=== PATIENT | male | born 1955 | race Caucasian/White ===

== ENCOUNTER → 2021-08-25 | Outpatient (CLI) | payer OTHER, SELFPAY ==
--- NOTE | 2021-08-25 07:45 | CT_ITS ---
STUDY: LOW DOSE CT LUNG CANCER SCREENING REASON FOR EXAM: Male, 65 years old. Z87.891. Patient smokes 1 pack per day for 40 years. Former smoker. COPD. History of prostate cancer. RADIATION DOSAGE (If Supplied By Facility): CTDIvol = ( 4.02 ) mGy, DLP = ( 138.43 ) mGycm TECHNIQUE: No contrast was administered. Low dose technique was utilized (average mAS-38 and kVp 120). 1.25 mm axial source images with a slice interval of 1.25-mm were reconstructed in lung windows. 2.5 mm axial source images with a slice interval of 2.5-mm were reconstructed in lung windows. 5.0 mm axial source images with a slice interval of 5.0-mm were reconstructed in soft tissue windows. COMPARISON: None. NODULES: There is an 8.4 mm nodular density in the anterior aspect of the right lower lobe as seen on axial image #139. This abuts the right major fissure. Mild scarring at the lung bases. Emphysema: Hyperinflation. Diffuse emphysematous changes with bullous formation worse in the upper lobes. Linear scarring in the lateral aspect of the left upper lobe. Mild increased markings in the anterior aspect of the right upper lobe. Endobronchial lesion: None Aorta: Atherosclerotic plaque formation of the aortic arch. CORONARY ARTERIES: Coronary artery calcification is seen. Heart: Unremarkable Pulmonary artery: Unremarkable Mediastinal nodes: Other chest and abdominal findings: CT/Low Dose CT Lung Screening IMPRESSION: Lung-RADS category 3 - Continue screening with LDCT in 6 months. IMPORTANT NOTES FOR USE: ACR Lung-RADS Version 1.1 Assessment Categories Release Date: 2018 Category: Coded 0-4 bases on nodule(s) with highest degree of suspicion. Negative screen is defined as categories 1 and 2; a positive screen is defined as categories 3 and 4. Category 3 and 4A nodules that are unchanged on interval CT should be coded as category 2, and individuals returned to screening in 12 months. Category 4X: Category 3 or 4 nodules with additional imaging findings that increase the suspicion of lung cancer, such as spiculation, GGN that doubles in size in 1 year, enlarged lymph notes, etc. Category Modifiers: S (significant finding unrelated to lung cancer) Electronically Signed: Shayne Goldsmiht MD at 8:37 EDT ,
== END | disposition home or self-care (01) ==
PROVIDERS: Referring Provider Internal Medicine Pulmonary Disease; Visit Provider Internal Medicine Pulmonary Disease
DX: Z12.2 Encounter for screening for malignant neoplasm of respiratory organs (principal); Z87.891 Personal history of nicotine dependence
CPT/HCPCS: 71271

== ENCOUNTER → 2022-04-07 | Outpatient (CLI) | payer OTHER, SELFPAY ==
--- NOTE | 2022-04-07 07:36 | CT_ITS ---
STUDY: CT CHEST WITHOUT CONTRAST REASON FOR EXAM: Male, 66 years old. PULM NODULE RADIATION DOSAGE (If Supplied By Facility): CTDIvol = ( 20.09 ) mGy, DLP = ( 879.65 ) mGycm TECHNIQUE: Transaxial imaging was performed without the administration of intravenous contrast material. Multiplanar coronal and sagittal images were reformatted. Individualized dose optimization techniques were used for this CT. COMPARISON: Comparison is made with prior study dated 08/25/2021. FINDINGS: CHEST Small benign-appearing bilateral axillary lymph nodes. Hyperinflation. Emphysematous changes with centrilobular emphysema worse in the upper lobes with decreased bronchovascular markings. Stable 8.5 mm well-defined nodule in the anterior aspect of the right lower lobe abutting the right major fissure. This is seen on axial image #80. Stable mild scarring in the lingular segment of the left upper lobe anteriorly. There is no demonstrated pleural abnormality. There are calcifications of the coronary arteries. Normal mediastinum. Normal hilar regions. Normal unenhanced pulmonary arteries. There is atherosclerotic calcification of the aortic arch with tortuosity and elongation of the aortic arch and descending thoracic aorta. There are multi-level degenerative changes of the thoracic spine. There is a 2.3 cm rounded nodule in the right retrocrural region suggestive of a small lymph node. CT/Chest without Contrast IMPRESSION: Stable examination. 2.3 cm rounded nodule in the right retrocrural region suggestive of a small lymph node. Electronically Signed: Shayne Goldsmith MD at 14:14 EST ,
== END | disposition home or self-care (01) ==
LOC: CT 07:34
PROVIDERS: Visit Provider Internal Medicine Pulmonary Disease
DX: R91.1 Solitary pulmonary nodule (principal)
CPT/HCPCS: 71250

== ENCOUNTER → 2022-10-22 | Outpatient (CLI) | payer OTHER, SELFPAY ==
--- NOTE | 2022-10-22 13:47 | CT_ITS ---
INDICATION: PULMONARY NODULE EXAMINATION: CT CHEST WITHOUT CONTRAST - CT Chest W/O Contrast Injection TECHNIQUE: Helically acquired images were obtained of the chest. A radiation dose optimization technique was used for this scan. IV Contrast dosage and agent: None. RADIATION DOSAGE (If Supplied By Facility): CTDIvol = ( 18.95 ) mGy, DLP = ( 776.70 ) mGycm COMPARISON: Prior study dated: 04/07/2022 FINDINGS: LUNGS, PLEURA AND LARGE AIRWAYS: The central airways are patent. There is severe centrilobular and paraseptal emphysema. No dense consolidation. Unchanged 0.8 cm fissural nodule on series 2 image 79, likely a fissural lymph node. No parenchymal nodules identified. No pleural effusion or thickening. No pneumothorax. THYROID: No thyroid lesions. HEART AND PERICARDIUM: Heart size is normal. No pericardial effusion. CORONARY ARTERIES: Coronary artery calcification is seen. VESSELS: Thoracic aorta is not dilated. MEDIASTINUM AND MICHEL: No hilar lymphadenopathy. Decreased prominence of a right-sided retrocrural lymph node. This currently measures 1.1 cm short axis on series 2 image 125. This previously measured 2 cm. Esophagus is unremarkable. No hiatal hernia. UPPER ABDOMEN: No acute pathology. BONES: No suspicious lytic or blastic abnormality. Mild degenerative changes in the spine. CT/Chest without Contrast IMPRESSION: Severe emphysema. Unchanged right lung fissural lymph node. No suspicious pulmonary nodule requiring follow-up. Decreased size of a right-sided retrocrural lymph node. Electronically Signed: Zbigniew Higgins MD at 22:45 EDT ,
== END | disposition home or self-care (01) ==
LOC: CT 13:45
PROVIDERS: Referring Provider Internal Medicine Pulmonary Disease; Visit Provider Internal Medicine Pulmonary Disease
DX: R91.1 Solitary pulmonary nodule (principal)
CPT/HCPCS: 71250

== ENCOUNTER → 2023-02-25 | Outpatient (CLI) | payer MEDICARE, SELFPAY ==
--- OUTSIDE RECORDS SUMMARY | 2023-02-25 07:26 | XMS RPT_ITS | CCD ---
Author Name Unknown Address [address] [facility] [address] [place] [address] Organization [facility] Care Team Providers Care Furnace Attendant Name Role Phone Rob Burns Unavailable Unavailable Unavailable Unavailable NewclarissalNarendra Unavailable Unavailable Newbill, Narendra Fernando Unavailable Unavailable Burns, Rob M Unavailable Unavailable Burns, Rob M Unavailable Unavailable Ivanauskas, Saulius Unavailable Unavailable Ivanauskas, Saulius Unavailable Unavailable Burns, Rob M Unavailable Unavailable Gilbert, Joel Unavailable Unavailable Gilbert, Joel Unavailable Unavailable Burns, Rob M Unavailable Rob Burns Primary Care Provider Unavaila ble Rob Burns Primary Care Provider [phone] Rob Burns Primary Care Provider [phone] GARDILCIC, STJEPAN Admitting Unavailable EVELYNILCIC, STJEPAN Attending Unavailable ORB BURNS Primary Care Unavailabl e GARDILCIC, STJEPAN Admitting Unavailable ROB BURNS Primary Care Unavailabl e Rob Burns Primary Care Provider Rob Burns MD Primary Care Provider [phone] Rob Burns MD Primary Care Provider STONE, FOZIA REBECA Referring Unavailable STONE, FOZIA REBECA Attending Unavailable STONE, FOZIA REBECA Primary Care Unavailable Stone [employer], Fozia Rebeca Primary Care Provide r STONE, FOZIA REBECA Primary Care Unavailable STONE, FOZIA REBECA Primary Care Unavailable HERRERA KESLSER Attending Unavail able Allergies Allergy Classification Reported Allergen(s) Allergy Type Date of Onset Reaction(s) Facility MITE EXTRACT (2 sources) MITE EXTRACT Drug Allergy [facility] (7 sources) english house dust mite extract / house dust mite extract; Translations: [ALLERG XT,D.FARINAE-D.PTER ONYS] Propensity to adverse reactions to drug [facility] Work Phone: (5 sources) diazePAM Propensity to adverse reactions to drug 08-28-19 10 [facility] Work Phone: (8 sources) NYQUIL; Translations: [Unknown] Propensity to adverse reactions to drug 09-29-19 17 Rash [facility] Work Phone: (2 sources) Dextromethorphan / Doxylamine; Translations: [NyQuil Cough] Drug Allergy [facility] Repository (2 sources) diazePAM; Translations: [Valium] Drug Allergy [facility] Repository (1 source) Silk adhesive tape; Translations: [Silk tape] Propensity to adverse reactions to drug (disorder) [facility] Repository (13 sources) MITE EXTRACT Drug Allergy [facility] Work Phone: (15 sources) PHENYLEPH-DOXYLAMIN E-DM-APAP Propensity to adverse reactions to drug Hives, Headache [facility] Work Phone: (15 sources) *SEASONAL Propensity to adverse reactions to substance [facility] Work Phone: (1 source) ALLERGIES NOT ON FILE; Translations: [ALLERGIES NOT ON FILE] Propensity to adverse reactions (disorder) [facility] 2 Repository Medications Current Medications Medication Drug Class(es) Dates Sig (Normalized) Sig (Original) acetaminophen 325 mg / oxyCODONE hydrochloride 5 mg oral tablet (1 source) Opioid Agonist Start: 09-15-2018 End: 09-22-2018 take 1 tablet by mouth every six hours as needed for pain oxyCODONE-acetamin ophen (PERCOCET) 5-325 mg per tablet Indications: Post-op pain Take 1 (one) tablet by mouth every 6 (six) hours as needed for pain . 20 tablet 0 09/15/2018 09/22/2018 Active 30 actuat aclidinium bromide 0.4 mg/actuat dry powder inhaler (20 sources) Start: 09-09-2017 End: 12-20-2020 take 1 [IU] by inhalation twice daily Aclidinium [place] (Tudorza Pressair) 400 MCG/ACT Aerosol Powder, breath activated inhalation powder Indications: Chronic obstructive pulmonary disease, unspecified COPD type Inhale 1 Units 2 times daily. 3 Each 1 12/20/2020 Active Completed/Discontinued Medications Medication Drug Class(es) Dates Sig (Normalized) Sig (Original) acetaminophen 325 mg / HYDROcodone bitartrate 5 mg oral tablet (1 source) Opioid Agonist Start: 09-14-2018 End: 09-15-2018 take 1-2 tablets by mouth every four hours as needed 1-2 tablet, Oral, Every 4 hours PRN, moderate to severe pain, Starting 09/14/18 at 1617 [] Initiate with 1 tablet oral every 4 hours prn moderate to severe pain. [] For unrelieved pain, may repeat one tablet oral dose within 60 minutes of initial dose. [] If pain is RELIEVED after repeat dose, change to two tablets of 5/325 mg oral every 4 hours prn moderate to severe pain. [] If pain is UNrelieved after repeat dose, or patient requires dose reduction, call physician. bisacodyl 10 mg rectal suppository (1 source) Stimulant Laxative Start: 09-15-2018 End: 09-15-2018 10 mg, Rectal, Daily, First dose on Wed09/15/18 at 0900 [] until flatus or BM, then discontinue. busPIRone hydrochloride 15 mg oral tablet (4 sources) Start: 03-01-2018 End: 08-23-2018 take 1 tablet by mouth three times daily busPIRone 15 MG Tab tablet Indications: Anxiety disorder, unspecified type Take 1 tablet by mouth 3 times daily. 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 Disorders of lipid metabolism (20 sources) Pure hypercholesterolemia; Translations: [Mixed hyperlipidemia] Resolved: 09-15-2016 09-15-2016 Chronic Esophageal disorders (16 sources) Gastro-esophageal reflux disease without esophagitis; Translations: [Gastroesophageal reflux disease without esophagitis] 08-28-2016 Chronic Mood disorders (20 sources) Recurrent major depression in full remission; Translations: [Major depressive disorder, recurrent, in full remission] 08-28-2016 Chronic Nonmalignant breast conditions (20 sources) Gynecomastia; Translations: [Breast lump] Onset: 08-27-2009 Resolved: 09-15-2016 03-26-2010 Episodic Nonspecific chest pain (2 sources) Chest pain; Translations: [Chest discomfort] Episodic Nutritional deficiencies (16 sources) Vitamin D deficiency; Translations: [Vitamin D deficiency, unspecified] 08-28-2016 Chronic Other aftercare (1 source) Follow-up status; Translations: [Encounter to discuss test results] Episodic Other diseases of bladder and urethra (1 source) Bladder neck obstruction; Translations: [Bladder neck obstruction] Chronic Other diseases of veins and lymphatics (15 sources) Peripheral venous insufficiency; Translations: [Venous insufficiency (chronic) (peripheral)] 08-28-2016 Episodic Other male genital disorders (2 sources) Impotence of organic origin; Translations: [Erectile dysfunction, unspecified erectile dysfunction type] Chronic Other nervous system disorders (1 source) Postoperative pain ; Translations: [Post-op pain] Episodic Other non-traumatic joint disorders (2 sources) Pain in left hip; Translations: [Pain in left hip] Onset: 12-11-2021 Episodic Other nutritional; endocrine; and metabolic disorders (13 sources) Morbid obesity; Translations: [Morbid (severe) obesity due to excess calories] Onset: 08-23-2018 08-23-2018 Chronic Other nutritional; endocrine; and metabolic disorders (1 source) Overweight; Translations: [Overweight] Chronic Other nutritional; endocrine; and metabolic disorders (2 sources) Body mass index 40+ - severely obese; Translations: [Morbid (severe) obesity due to excess calories] Onset: 08-23-2018 08-23-2018 Chronic Other nutritional; endocrine; and metabolic disorders (1 source) Overweight; Translations: [Overweight] Episodic Other screening for suspected conditions (not mental disorders or infectious disease) (5 sources) Patient encounter status; Translations: [Encounter for screening for malignant neoplasm of prostate] Onset: 12-22-2022 Episodic Residual codes; unclassified (20 sources) Obstructive sleep apnea syndrome; Translations: [Obstructive sleep apnea (adult) (pediatric)] Onset: 11-16-2016 11-16-2016 Chronic Residual codes; unclassified (20 sources) Localized edema; Translations: [Localized edema] 08-28-2016 Episodic Residual codes; unclassified (2 sources) Needs influenza immunization; Translations: [Encounter for immunization] Episodic Spondylosis; intervertebral disc disorders; other back problems (15 sources) Low back pain; Translations: [Low back pain] 08-28-2016 Episodic Unclassified (2 sources) Preprocedural examination done; Translations: [Preoperative examination] Unclassified (1 source) Patient encounter status; Translations: [Special screening for malignant neoplasm of prostate] Past or Other Problems Problem Classification Problem Date Documented Da te Episodic/Chronic Anxiety disorders (18 sources) Anxiety disorder; Translations: [Anxiety disorder, unspecified] Resolved: 09-15-2016 09-15-2016 Chronic Diabetes mellitus without complication (8 sources) Impaired fasting glycaemia; Translations: [Impaired fasting glucose] Onset: 01-01-2020 01-01-2020 Episodic Essential hypertension (15 sources) Essential hypertension; Translations: [Essential (primary) hypertension] Resolved: 09-15-2016 09-15-2016 Chronic Other circulatory disease (15 sources) Elevated blood-pressure reading without diagnosis of hypertension; Translations: [Elevated blood-pressure reading, without diagnosis of hypertension] Resolved: 09-15-2016 09-15-2016 Episodic Other connective tissue disease (6 sources) Ganglion, right hand; Translations: [Ganglion cyst of right hand] Resolved: 09-15-2016 09-15-2016 Episodic Other connective tissue disease (15 sources) Pain in right arm; Translations: [Pain in right arm] Resolved: 09-15-2016 09-15-2016 Episodic Other connective tissue disease (9 sources) Ganglion cyst of right hand; Translations: [Ganglion, right hand] Resolved: 09-15-2016 09-15-2016 Residual codes; unclassified (15 sources) Edema, unspecified; Translations: [Swelling - edema - symptom] Resolved: 09-15-2016 09-15-2016 Episodic Results Test Name Value Interpretation Reference Range Facil ity Vital Signs Date Time Vital Sign Value Performing Clinician Jayden mccallum 12-20-2020 08:33-0400 Diastolic blood pressure 78 mm[Hg] Rob Burns MD Work Phone: [facility] 12-20-2020 08:33-0400 Systolic blood pressure 142 mm[Hg] Rob Burns MD Work Phone: [facility] 12-20-2020 08:110400 Body height 177.8 cm Rob Burns MD Work Phone: [facility] 12-20-2020 08:11-0400 Body mass index (BMI) [Ratio] 41.63 kg/m2 Rob Burns MD Work Phone: [facility] 12-20-2020 08:11-0400 Body weight 131.59 kg Rob Burns MD Work Phone: [facility] 12-20-2020 08:[id number] Heart rate 68 /min Rob Burns MD Work Phone: [facility] 12-20-2020 08:11-0400 SaO2% (BldA) [Mass fraction] 91 % Rob Burns MD Work Phone: [facility] 07-05-2020 09:07-0400 Body height 177.8 cm Heather Rona [employer] Work Phone: [facility] 07-05-2020 09:07-0400 Body mass index (BMI) [Ratio] 44.54 kg/m2 Heather Rona [employer] Work Phone: [facility] 07-05-2020 09:07-0400 Body weight 140.8 kg Heather Rona [employer] Work Phone: [facility] 07-05-2020 09:07-0400 Diastolic blood pressure 80 mm[Hg] Heather Rona [employer] Work Phone: [facility] 07-05-2020 09:07-0400 Heart rate 84 /min Heather Rona [employer] Work Phone: [facility] 07-05-2020 09:07-0400 Respiratory rate 16 /min Heather Rona [employer] Work Phone: [facility] 07-05-2020 09:07-0400 SaO2% (BldA) [Mass fraction] 92 % Heather Rona [employer] Work Phone: [facility] 07-05-2020 09:07-0400 Systolic blood pressure 130 mm[Hg] Heather Rona [employer] Work Phone: [facility] 06-25-2020 08:05-0400 Body mass index (BMI) [Ratio] 44.29 kg/m2 Rob Burns MD Work Phone: [facility] 06-25-2020 08:05-0400 Body weight 140.03 kg Rob Burns MD Work Phone: [facility] 06-25-2020 08:05-0400 Diastolic blood pressure 82 mm[Hg] Rob Burns MD Work Phone: [facility] 06-25-2020 08:05-0400 Heart rate 79 /min Rob Burns MD Work Phone: [facility] 06-25-2020 08:05-0400 SaO2% (BldA) [Mass fraction] 92 % Rob Burns MD Work Phone: [facility] 06-25-2020 08:05-0400 Systolic blood pressure 141 mm[Hg] Rob Burns MD Work Phone: [facility] 01-01-2020 09:13-0500 BMI (Body Mass Index) 43.16 kg/m2 Rob Burns [facility] 01-01-2020 09:13-0500 Body weight 136.44 kg [facility] 01-01-2020 09:13-0500 BP Diastolic 77 mm[Hg] [facility] 01-01-2020 09:13-0500 BP Systolic 134 mm[Hg] [facility] 01-01-2020 09:13-0500 Height 177.8 cm [facility] 01-01-2020 09:13-0500 Pulse (Heart Rate) 72 /min [facility] 01-01-2020 09:13-0500 Pulse Oximetry 90 % [facility] 12-22-2019 08:54-0500 BMI (Body Mass Index) 43.28 kg/m2 [facility] 12-22-2019 08:54-0500 Body weight 136.81 kg [facility] 12-22-2019 08:54-0500 BP Diastolic 78 mm[Hg] [facility] 12-22-2019 08:54-0500 BP Systolic 114 mm[Hg] [facility] 12-22-2019 08:54-0500 Height 177.8 cm [facility] 12-22-2019 08:54-0500 Pulse (Heart Rate) 78 /min [facility] 12-22-2019 08:54-0500 Pulse Oximetry 95 % [facility] 12-22-2019 08:54-0500 Respiratory Rate 22 /min [facility] 09-07-2019 08:28-0400 BMI (Body Mass Index) 41.87 kg/m2 [facility] 09-07-2019 08:28-0400 Body weight 132.36 kg [facility] 09-07-2019 08:28-0400 BP Diastolic 70 mm[Hg] [facility] 09-07-2019 08:28-0400 BP Systolic 140 mm[Hg] [facility] 09-07-2019 08:28-0400 Height 177.8 cm [facility] 09-07-2019 08:28-0400 Pulse (Heart Rate) 78 /min [employer] 09-07-2019 08:28-0400 Pulse Oximetry 93 % [facility] [employer] Encounters Encounter Date Encounter Type Care Provider Facility Start: 02-24-2023 End: 02-24-2023 Patient encounter status [facility] Work Phone: Start: 02-24-2023 End: 02-24-2023 Subsequent hospital visit by physician Kailash Campos Nonv1 Ecg Resource [facility] Procedures Date Procedure Procedure Detail Performing Clinician Start: 02-24-2023 Ecg routine ecg w/le ast 12 lds trcg only w/o i&r Fozia Knapp [employer] Work Phone: Start: 12-22-2022 VASC US ABDOMINAL AO RTA ANEURYSM AAA SCREENING FOZIA KNAPP Start: 12-22-2022 Us abdominal aorta r eal time screen study aaa Fozia Knapp [employer] Work Phone: Start: 12-02-2020 Lipid 1996 panel - S ki or Plasma Rob Burns MD Work Phone: Start: 06-13-2020 Lipid 1996 panel - S ki or Plasma Rob Burns MD Work Phone: Start: 12-22-2019 Lipid 1996 panel - S ki or Plasma Rob Burns Start: 09-30-2019 SLEEP STUDY (SCANNED) H istorical Provider Start: 09-22-2019 SLEEP STUDY PSG Histori cydney Provider Start: 07-12-2019 Lipid 1996 panel - S ki or Plasma Rob Burns Start: 01-23-2019 Lipid 1996 panel - S ki or Plasma Rob Burns Start: 09-15-2018 Complete blood count (hemogram) panel - Blood by Automated count Wilber Burr Work Phone: Start: 09-15-2018 Basic metabolic 2000 panel - Serum or Plasma Wilber Burr Work Phone: Start: 09-14-2018 Procedure on tissue specimen Wilber Burr Work Phone: Start: 09-14-2018 End: 09-14-2018 INSERTION PENILE PROSTHESIS Wilber Burr Work Phone: Start: 09-09-2018 12 lead ECG Migdalia godinez Work Phone: Start: 09-09-2018 Basic metabolic 2000 panel - Serum or Plasma Migdalia Ghotra Work Phone: Start: 09-09-2018 Complete blood count (hemogram) panel - Blood by Automated count Migdalia Ghotra Work Phone: Start: 08-08-2018 Lipid 1996 panel - S ki or Plasma Rob Burns Start: 02-16-2018 Lipid 1996 panel - S ki or Plasma Rob Burns Start: 09-28-2017 Colonoscopy Provider Marvel pope Start: 08-24-2017 Lipid 1996 panel - S ki or Plasma Provider Kevin Plan of Treatment Date Care Activity Detail Author Start: 12-02-2025 Fasting lipid profile LIPID SCREENING [employer] Start: 06-13-2025 [facility]asting [facility] Start: 12-21-2024 Fasting lipid profile [facility]ING [facility] Start: 07-11-2024 Fasting lipid profile LIPID SCREENING [employer] Start: 01-24-2024 Fasting lipid profile LIPID SCREENING [employer] Start: 08-09-2023 Fasting lipid profile LIPID SCREENING [employer] [facility] Start: 04-27-2023 End: 04-27-2023 Patient encounter procedure 04/27/2023 8:00 AM EDT Appointment [facility] [address] [place] [id number] [phone] Santiago Vazquez, DO [address] [facility] [place] [address] [facility] Start: 03-26-2023 End: 03-26-2023 ambulatory 03/26/2023 11:30 AM EST Evaluation [facility] [address] [place] [id number] Pita Puckett, PT [address] [place] [address] Gaye [facility]gesont Start: 02-16-2023 Fasting lipid profile LIPID SCREENING [facility] Work Phone: Start: 09-28-2022 Colonoscopy COLONOSCOPY [facility] Start: 08-24-2022 Fasting lipid profile LIPID SCREENING [facility] Work Phone: Start: 12-02-2021 Potassium [Moles/volume] in Serum or Plasma POTASSIUM [facility] Start: 12-02-2021 Prostate specific antigen measurement PROSTATE CANCER SCREENING DISCUSSION [facility] Start: 07-03-2021 End: 07-03-2021 Patient encounter procedure [facility] Pulmonary Disease [facility] Start: 07-01-2021 DTaP/Tdap/Td Vaccines (1 - Tdap) DTaP/Tdap/Td Vaccines (1 - Tdap) [facility] Start: 06-25-2021 Prostate specific antigen measurement PROSTATE CANCER SCREENING DISCUSSION [facility] Start: 06-13-2021 End: 06-13-2021 Patient encounter procedure 06/13/2021 Office Visit Family Medicine Rob Burns MD [address] [place] [address] [facility] Start: 05-19-2021 End: 09-16-2021 Hepatic function 2000 panel - Serum or Plasma HEPATIC FUNCTION PANEL Lab Routine Mixed hyperlipidemia Expected: 05/19/2021 (Approximate), Expires: 09/16/2021 [facility] Work Phone: Immunizations Immunization Date Immunization Notes Care Provider Fa [facility] 12-20-2020 influenza, injectabl e, quadrivalent, preservative free Rob Burns MD Work Phone: [facility] 12-20-2020 influenza quad vacci ne 0.5 ML Suspension Prefilled Syringe Rob Burns MD Work Phone: [facility] 01-01-2020 influenza, injectabl e, quadrivalent, preservative free Rob Burns [facility] 01-01-2020 influenza quad vacci ne 0.5 ML Suspension Prefilled Syringe Rob [facility] 12-14-2018 Seasonal, quadrivale nt, recombinant, injectable influenza vaccine, preservative free Rob Burns MD Work Phone: [facility] 12-14-2018 influenza virus vacc ine, unspecified formulation Arnold Seifu [facility] 11-17-2017 influenza virus vacc ine, whole virus [facility] Work Phone: 11-17-2017 influenza virus vacc ine, unspecified formulation [facility] 03-16-2017 pneumococcal polysaccharide vaccine, 23 valent; Translations: [PNEUMOCOCCAL POLYSAC 23-VALENT VACCINE] Provider [facility] Work Phone: 11-11-2016 influenza, injectabl e, quadrivalent, preservative free Rob Burns MD Work Phone: [facility] 11-11-2016 influenza virus vacc ine, unspecified formulation Provider [facility] Work Phone: 11-14-2013 influenza, injectabl e, quadrivalent, contains preservative Provider [facility] Work Phone: 11-14-2013 influenza, seasonal, injectable Rob Burns MD Work Phone: [facility] 10-24-2012 influenza, injectabl e, quadrivalent, contains preservative Provider [facility] Work Phone: 10-24-2012 influenza, seasonal, injectable Rob Burns MD Work Phone: [facility] 01-18-2012 influenza, injectabl e, quadrivalent, contains preservative Provider [facility] Work Phone: 12-30-1999 TD(adult) unspecifie d formulation Rob Burns [facility] Work Phone: Payers Date Payer Category Payer Medicare [facility] MEDICARE [employer] MEDICARE [id number] 2022-Present [address] [place] [address] [id number] 2022 Medicare [id number] 2021 Unknown [id number] 2017 Unknown 2016 Unknown [id number] 2016 Unknown [id number] [id number] 2014 Unknown [id number] [id number] 2014 Unknown [id number]. [id number] 2014 Unknown [id number] [id number]. [id number] 1957 Unknown [id number] [id number] 1957 Unknown [id number] [id number] 1957 Unknown [id number] [id number] 1957 Unknown [id number] [id number] 1957 Unknown [id number] [id number] 1957 Unknown [id number] [id number] 1957 Unknown [id number] [id number] 1957 Unknown [id number] [id number] 1957 Unknown [id number] [id number] 1957 Unknown [id number] [id number] 1957 Unknown [id number] Social History Date Type Detail Facility Start: 10-26-2016 End: 07-05-2020 Tobacco smoking status MTIS Former smoker [facility] Work Phone: Start: 10-26-2016 End: 09-09-2018 Cigarettes smoked current (pack per day) - Reported [facility] Work Phone: Start: 1955 [facility]igned At [facility] Work [facility]: End: 09-27-2006 History of tobacco use Current smoker [facility] Work Phone: End: 09-27-2006 History of tobacco use Cigarette Smoker [facility] Work Phone: Start: 07-20-2019 End: 07-05-2020 Tobacco use and exposure Never used [employer] Start: 07-20-2019 End: 12-20-2020 Alcohol intake Current non-drinker of alcohol (finding) [employer] Start: 12-12-2022 End: 02-24-2023 Exposure to SARS-CoV-2 (event) Not sure [employer] Start: 09-22-2018 Tobacco use and exposure Former user [facility] Tobacco smoking stat [facility] Tobacco smoking consumption unknown [facility] Work Phone: Gender identity Not on file [facility] Work Phone: Medical Equipment Procedure Code Equipment Code Equipment Origin al Text Equipment Identifier Dates Kit Accessory 70 0 Ultrex Penile Prosthesis - [id number] FDA Start: 09-14-2018 History of Present illness Narrative 12-20-2020 Rob Burns MD - 12/20/2020 8:15 AM EDTErghazal Conroy - 12/20/2020 8:15 AM EDT Note Date & Type Note Facility 12-20-2020 History of Presen t illness Narrative Chief Complaint Patient presents with Results Hyperlipidemia Depression Chronic Obstructive Pulmonary Disease Edema Obstructive Sleep Apnea Wears Cpap and benefiting from HPI: Regarding Hyperlipidemia: Rainer comes in today to follow up on chronic hyperlipidemia. This condition has been under good control. Pt reports that he has been compliant with his medications. Pt denies side effects from medication including myalgias, weakness or joint pain. Alleviating factors include: simvastatin Exacerbating factors include: poor diet, lack of exercise Other significant medical conditions include: see problem list Lab Results Component Value Date CHOLESTEROL 160 12/02/2020 TRIG 70 12/02/2020 HDL 44 12/02/2020 LDLCALC 102 (H) 12/02/2020 Lab Results Component Value Date ALT 14 (L) 12/02/2020 AST 16 12/02/2020 ALKPHOS 71 12/02/2020 BILITOTAL 0.8 12/02/2020 BILIDIRECT 0.1 06/13/2020 His hyperlipidemia severity is mild due to the above factors. Regarding Anxiety/Depression: Rainer presents with the complaint of anxiety/depression which is currently under improved control. He reports the following triggers: stress, dealing with a teen with mental issues Other symptoms include: Current treatment includes: fluoxetine, Buspar Significant medical conditions: see problem list In Regards to COPD: Rainer Soriano presents in follow up for COPD, which is chronic and stable. Control is at baseline. No increase in rescue use. No increase in cough, sputum, SOB. Compliance with medication is good. No medication side effects. he denies fever, chills, headache, sore throat, chest pain, palpitations, nausea, vomiting, diarrhea, dysuria, frequency, hematuria. Sleep apnea: chronic and stable on CPAP, finds it beneficial In regards to edema: Rainer presents with the complaint of edema: Location: mid-tibia Onset: years ago Frequency: daily Significant PMH: morbid obesity Significant medications: furosemide Triggers/exacerbating factors: weight, sedentary lifestyle Alleviating factors: diuretics and support stockings Other: Leg Swelling , denies chest pain, SOB, orthopnea, has occasional palpitations he associates it with dehydration. In Regards to GERD: Rainer Soriano is a 65 y.o. male who presents in follow up for GERD/gastritis. Symptoms are under good control. There are no side effects noted from the medication. he denies water brash, bitter or metallic taste, dysphagia, nausea, vomiting, hematemesis, melena, or black/tarry stools. He takes the medication on a daily basis and has recurrence of symptoms when reducing frequency of medication usage. Regarding elevated fasting glucose: Rainer presents in follow up of lab results that reveal elevated fasting glucose of Lab Results Component Value Date GLUCOSE 107 (H) 12/02/2020 Exacerbating factors include: poor diet, sedentary lifestyle, no regular exercise, obesity Onset of problem: 2018 Condition is: not changed Currently treated with: diet Other significant medical conditions include: see problem list ROS: Nurse Note: Review of Systems Constitutional: Negative for fatigue and fever. HENT: Negative for congestion, ear pain and sinus pain. Eyes: Negative for pain and redness. Respiratory: Negative for cough and shortness of breath. Cardiovascular: Negative for chest pain and palpitations. Gastrointestinal: Negative for abdominal pain, constipation, diarrhea, nausea and vomiting. Genitourinary: Negative for difficulty urinating and dysuria. Musculoskeletal: Negative for arthralgias and myalgias. Skin: Negative for rash and wound. Neurological: Negative for dizziness and headaches. All other systems reviewed and are negative. Physical Exam: BP 142/78 Pulse 68 Ht 1.778 m (5' 10 ) Wt 131.6 kg (290 lb 1.6 oz) SpO2 91% BMI 41.63 kg/m Smoking Status Former Smoker Body mass index is 41.63 kg/m . Physical Exam Constitutional: General: He is not in acute distress. Appearance: He is morbidly obese. He is not diaphoretic. HENT: Head: Normocephalic and atraumatic. Eyes: Conjunctiva/sclera: Conjunctivae normal. Pupils: Pupils are equal, round, and reactive to light. Cardiovascular: Rate and Rhythm: Normal rate. Heart sounds: Normal heart sounds. Pulmonary: Effort: Pulmonary effort is normal. No respiratory distress. Breath sounds: Normal breath sounds. Abdominal: Palpations: Abdomen is soft. Musculoskeletal: Cervical back: Normal range of motion and neck supple. Right lower leg: Edema present. Left lower leg: Edema present. Skin: General: Skin is warm and dry. Neurological: Mental Status: He is alert and oriented to person, place, and time. Cranial Nerves: No cranial nerve deficit. Assessment/Plan: 1. Chronic obstructive pulmonary disease, unspecified COPD type Chronic stable, continue same therapy - Aclidinium [place] (Tudorza Pressair) 400 MCG/ACT Aerosol Powder, breath activated inhalation powder; Inhale 1 Units 2 times daily. Dispense: 3 Each; Refill: 1 - budesonide-formoterol (Symbicort) 160-4.5 mcg/puff Aerosol inhaler; Inhale 2 puffs 2 times daily. Dispense: 30.6 g; Refill: 1 - montelukast (Singulair) 10 MG tablet; Take 1 tablet by mouth daily. Dispense: 90 tablet; Refill: 1 2. Major depressive disorder, recurrent, in full remission Chronic stable, continue same therapy - FLUoxetine 40 MG capsule; Take 1 capsule by mouth daily. Dispense: 90 capsule; Refill: 1 3. Localized edema Chronic stable, continue same therapy - furOSEmide 20 MG tablet; Take 1 tablet by mouth 2 times daily. Dispense: 180 tablet; Refill: 1 - potassium chloride SA (Klor-Con M10) 10 MEQ Tab CR; Take 1 tablet by mouth 2 times daily. Dispense: 180 tablet; Refill: 1 4. Mixed hyperlipidemia Chronic stable, continue same therapy - rosuvastatin 10 MG tablet; Take 1 tablet by mouth daily. Dispense: 90 tablet; Refill: 1 - HEPATIC FUNCTION PANEL; Future - LIPID PANEL W CALCULATED LDL; Future Orders and follow up as documented in patient record; We reviewed diet, exercise and weight control; Repeat labs were ordered and patient was advised to get prior to next appointment; Patient was advised to call with any questions or concerns. If symptoms worsen patient was advised to follow up in our office or the Emergency Dept. Benefits, Risks, Contraindications, and Complications of recommended treatments were explained the patient understands and agrees to proceed with plan. Rob Burns MD 12/20/2020 Nurse Note: Review of Systems Constitutional: Negative for fatigue and fever. HENT: Negative for congestion, ear pain and sinus pain. Eyes: Negative for pain and redness. Respiratory: Negative for cough and shortness of breath. Cardiovascular: Negative for chest pain and palpitations. Gastrointestinal: Negative for abdominal pain, constipation, diarrhea, nausea and vomiting. Genitourinary: Negative for difficulty urinating and dysuria. Musculoskeletal: Negative for arthralgias and myalgias. Skin: Negative for rash and wound. Neurological: Negative for dizziness and headaches. All other systems reviewed and are negative. documented in this encounter [facility] History of Present illness Narrative 07-05-2020 Heather Rea, MARKUS-BELT LACER - 07/05/2020 9:00 AM EDTBarkEmily bone LPN - 07/05/2020 9:00 AM EDT Note Date & Type Note Facility 07-05-2020 History of Present illness Narrative HPI: SUBJECTIVE: Rainer Soriano is a 64 y.o. male being seen today for sleep follow up. Most recent polysomnography showed: severe obstructive sleep apnea. Currently on home CPAP at 14 cmH2O. Patient stated that he is benefiting from the therapy. His compliance is excellent. Average AHI from the compliance report was 0.8. He denied any daytime fatigue, excessive daytime sleepiness, or weight changes. Current sleep problems/side effects include: None. Denies snoring during therapy. History and Allergies Allergies Allergen Reactions Nyquil Severe Cold-Flu [[id number]-Apap] Hives and Headache Dust Mite Extract Nasal Drainage Seasonal [*Seasonal] Pollen: nasal Drainage Past Medical History: Diagnosis Date Anxiety disorder, unspecified Asthma with COPD with exacerbation Depression Edema, unspecified Elevated blood pressure reading without diagnosis of hypertension Essential (primary) hypertension Fluid retention Ganglion, right hand Gastroesophageal reflux disease without esophagitis GERD (gastroesophageal reflux disease) Gynecomastia, male H/O colonoscopy 09/07/2014 Dr. Ibarra; + polyps Hypercholesteremia Localized edema Low back pain Major depressive disorder, recurrent, in full remission Mixed hyperlipidemia Pain in right arm Prostate cancer Pure hypercholesterolemia Radiation prostate Venous insufficiency (chronic) (peripheral) Vitamin D deficiency, unspecified Past Surgical History: Procedure Laterality Date HAND SURGERY 02/[address] Patrick [place] INSERT,INFLATABLE PENILE PROSTHESIS PROSTATECTOMY HEART CATHETERIZATION 2006 ACL RECONSTRUCTION 1993 left knee Social History Socioeconomic History Marital status: Spouse name: Not on file Number of children: Not on file Years of education: Not on file Highest education level: Not on file Occupational History Not on file Tobacco Use Smoking status: Former Smoker Years: 30.00 Types: Cigarettes Quit date: 09/27/2006 Years since quittin.7 Smokeless tobacco: Never Used Substance and Sexual Activity Alcohol use: No Drug use: No Sexual activity: Not on file Other Topics Concern Not on file Social History Narrative Not on file Social Determinants of Health Financial Resource Strain: Difficulty of Paying Living Expenses: Food Insecurity: Worried About Running Out of Food in the Last Year: Ran Out of Food in the Last Year: Transportation Needs: Lack of Transportation (Medical): Lack of Transportation (Non-Medical): Physical Activity: Days of Exercise per Week: Minutes of Exercise per Session: Stress: Feeling of Stress : Social Connections: Frequency of Communication with Friends and Family: Frequency of Social Gatherings with Friends and Family: Attends [employer] Services: Active Member of Clubs or Organizations: Attends Club or Organization Meetings: Marital Status: Intimate Partner Violence: Fear of Current or Ex-Partner: Emotionally Abused: Physically Abused: Sexually Abused: Family History Problem Relation Age of Onset Cancer- Other Father type unknown age 55 dec'd 57 Cancer- Other Sister cancer unknown; age 54 dec'd Cancer- Other Brother bladder cancer age 60's at dx; Aneurysm Mother Brain Vitals: 07/05/20 0907 BP: 130/80 Pulse: 84 Resp: 16 SpO2: 92% Weight: (!) 140.8 kg (310 lb 6.4 oz) Height: 1.778 m (5' 10 ) Physical Examination Physical Exam Vitals and nursing note reviewed. Constitutional: General: He is not in acute distress. Appearance: He is well-developed. Comments: Negative for chills, fever HENT: Head: Normocephalic and atraumatic. Right Ear: External ear normal. Left Ear: External ear normal. Nose: Nose normal. Eyes: General: Right eye: No discharge. Left eye: No discharge. Conjunctiva/sclera: Conjunctivae normal. Pupils: Pupils are equal, round, and reactive to light. Neck: Vascular: No JVD. Cardiovascular: Rate and Rhythm: Normal rate and regular rhythm. Heart sounds: Normal heart sounds. No murmur heard. No friction rub. No gallop. Comments: Negative for chest pain Pulmonary: Effort: Pulmonary effort is normal. No respiratory distress. Breath sounds: Normal breath sounds. No wheezing. Abdominal: General: Bowel sounds are normal. Palpations: Abdomen is soft. Musculoskeletal: General: No deformity. Normal range of motion. Cervical back: Normal range of motion and neck supple. Skin: General: Skin is warm and dry. Neurological: Mental Status: He is alert and oriented to person, place, and time. Psychiatric: Judgment: Judgment normal. Comments: Negative for sleep disturbance Coldiron Score - 5 CPAP/BIPAP/APAP Pressure -14 cm H2O Most Recent Sleep Study -PSG 09/22/19 Oxygen Use -4 L at night Patient is benefiting from PAP therapy MARTÍN Griffin Referred hi-[id number] Symptoms include : Snoring/snorting -No Insomnia-No Waking with gasping/shortness of breath -No Difficulty concentrate- No Waking with headache-No Significant weight change-No Daytime Sleepiness-No Restless legs -No Upcoming surgeries?-No 6 month follow up-Doing good today pressure with machine feels comfortable to him. CURRENT MEDICATIONS: Current Outpatient Medications Medication Sig Dispense Refill Aclidinium [place] (Tudorza Pressair) 400 MCG/ACT Aerosol Powder, breath activated inhalation powder Inhale 1 Units 2 times daily. 3 Each 1 albuterol (2.5 MG/3ML) 0.083% inhalation solution Take 3 mL by nebulization every 4 hours as needed. Every 4-6 hours 100 vial 3 budesonide-formoterol (Symbicort) 160-4.5 mcg/puff Aerosol inhaler Inhale 2 puffs 2 times daily. 3 Inhaler 1 Cholecalciferol (VITAMIN D3) 5000 units Tab take 5,000 Units by mouth daily.. FLUoxetine 40 MG capsule Take 1 capsule by mouth daily. 90 capsule 1 furOSEmide 20 MG tablet Take 1 tablet by mouth 2 times daily. 180 tablet 1 Misc. Devices Misc by Unknown route. CPAP pressure 14 cm H2O set up 10/06/2019 MARTÍN Magallon Elias montelukast (Singulair) 10 MG tablet Take 1 tablet by mouth daily. 90 tablet 1 omeprazole [address] take 20 mg by mouth daily.. potassium chloride SA (Klor-Con M10) 10 MEQ Tab CR Take 1 tablet by mouth 2 times daily. 180 tablet 1 rosuvastatin 10 MG tablet Take 1 tablet by mouth daily. 90 tablet 1 No current facility-administered medications for this visit. Lungs: Clear to auscultation bilaterally. Heart: Regular in rate and rhythm. Abd: Soft and non-distended. Skin: No obvious rashes or cyanosis. Neuro: Grossly non-focal examination. MS: No joint erythema/edema. ROS Reviewed. Sleep study and compliance report form was reviewed together with the patient during this visit. The sleep study result was reviewed and discussed with the patient during this visit ASSESSMENT & PLAN: * Severe EDMAR * Obesity * Reviewed Test Results from Polysomnography * Reviewed CPAP Compliance Form * Patient was advised to continue with positive pressure therapy at home. * Patient was advised to adhere to a regular sleep hygiene habits. * Reinforced: adverse consequences of EDMAR, compliance, wt loss, side sleeping if feasible, sleep hygiene (and avoid/minimize alcohol, sedative/respiratory depressant meds, nicotine/smoking cessation: quit), not driving/operating machinery while sleepy. * Patient will follow up in 1 year * New Supplies Ordered Spent 20 minutes with patient face to face and more than 50% of this time was spent in counseling and coordination of care. GUNJAN Roblero Coldiron Score - 5 CPAP/BIPAP/APAP Pressure -14 cm H2O Most Recent Sleep Study -PSG 09/22/19 Oxygen Use -4 L at night Patient is benefiting from PAP therapy MARTÍN Griffin Referred dw-[id number] Symptoms include : Snoring/snorting -No Insomnia-No Waking with gasping/shortness of breath -No Difficulty concentrate- No Waking with headache-No Significant weight change-No Daytime Sleepiness-No Restless legs -No Upcoming surgeries?-No 6 month follow up-Doing good today pressure with machine feels comfortable to him. documented in this encounter [facility] History of Present illness Narrative 06-25-2020 Rob Burns MD - 06/25/2020 8:00 AM Ann Dick - 06/25/2020 8:00 AM EDT Note Date & Type Note Facility 06-25-2020 History of Presen t illness Narrative Chief Complaint Patient presents with Results Chronic Obstructive Pulmonary Disease Esophageal Reflux Hyperlipidemia Vitamin D Deficiency Obstructive Sleep Apnea Depression Edema HPI: Regarding Hyperlipidemia: Rainer comes in today to follow up on chronic hyperlipidemia. This condition has been under good control. Pt reports that he has been compliant with his medications. Pt denies side effects from medication including myalgias, weakness or joint pain. Alleviating factors include: simvastatin Exacerbating factors include: poor diet, lack of exercise Other significant medical conditions include: see problem list Lab Results Component Value Date CHOLESTEROL 216 (H) 06/13/2020 TRIG 105 06/13/2020 HDL 54 06/13/2020 LDLCALC 141 (H) 06/13/2020 Lab Results Component Value Date ALT 17 06/13/2020 AST 8 (L) 06/13/2020 ALKPHOS 74 06/13/2020 BILITOTAL 1.2 06/13/2020 BILIDIRECT 0.1 06/13/2020 His hyperlipidemia severity is mild due to the above factors. Regarding Anxiety/Depression: Rainer presents with the complaint of anxiety/depression which is currently under improved control. He reports the following triggers: stress, dealing with a teen with mental issues Other symptoms include: Current treatment includes: fluoxetine, Buspar Significant medical conditions: see problem list In Regards to COPD: Rainer Soriano presents in follow up for COPD, which is chronic and stable. Control is at baseline. No increase in rescue use. No increase in cough, sputum, SOB. Compliance with medication is good. No medication side effects. he denies fever, chills, headache, sore throat, chest pain, palpitations, nausea, vomiting, diarrhea, dysuria, frequency, hematuria. Sleep apnea: chronic and stable on CPAP, finds it beneficial In regards to edema: Rainer presents with the complaint of edema: Location: mid-tibia Onset: years ago Frequency: daily Significant PMH: morbid obesity Significant medications: furosemide Triggers/exacerbating factors: weight, sedentary lifestyle Alleviating factors: diuretics and support stockings Other: Leg Swelling , denies chest pain, SOB, orthopnea, has occasional palpitations he associates it with dehydration. In Regards to GERD: Rainer Soriano is a 64 y.o. male who presents in follow up for GERD/gastritis. Symptoms are under good control. There are no side effects noted from the medication. he denies water brash, bitter or metallic taste, dysphagia, nausea, vomiting, hematemesis, melena, or black/tarry stools. He takes the medication on a daily basis and has recurrence of symptoms when reducing frequency of medication usage. ROS: Nurse Note: Review of Systems Constitutional: Negative for fatigue and fever. HENT: Negative for congestion, ear pain and sore throat. Eyes: Negative for pain and redness. Respiratory: Negative for cough and shortness of breath. Cardiovascular: Negative for chest pain and palpitations. Gastrointestinal: Negative for abdominal pain, constipation, diarrhea, nausea and vomiting. Genitourinary: Negative for difficulty urinating and dysuria. Musculoskeletal: Negative for arthralgias and myalgias. Skin: Negative for rash and wound. Neurological: Negative for dizziness and headaches. All other systems reviewed and are negative. Physical Exam: BP 141/82 Pulse 79 Wt (!) 140 kg (308 lb 11.2 oz) SpO2 92% BMI 44.29 kg/m Smoking Status Former Smoker Body mass index is 44.29 kg/m . Physical Exam Constitutional: General: He is not in acute distress. Appearance: He is morbidly obese. He is not diaphoretic. HENT: Head: Normocephalic and atraumatic. Eyes: Conjunctiva/sclera: Conjunctivae normal. Pupils: Pupils are equal, round, and reactive to light. Cardiovascular: Rate and Rhythm: Normal rate. Heart sounds: Normal heart sounds. Pulmonary: Effort: Pulmonary effort is normal. No respiratory distress. Breath sounds: Normal breath sounds. Abdominal: Palpations: Abdomen is soft. Musculoskeletal: Cervical back: Normal range of motion and neck supple. Right lower leg: Edema present. Left lower leg: Edema present. Skin: General: Skin is warm and dry. Neurological: Mental Status: He is alert and oriented to person, place, and time. Cranial Nerves: No cranial nerve deficit. Assessment/Plan: 1. Chronic obstructive pulmonary disease, unspecified COPD type Chronic stable, continue same therapy - Aclidinium [place] (Tudorza Pressair) 400 MCG/ACT Aerosol Powder, breath activated inhalation powder; Inhale 1 Units 2 times daily. Dispense: 3 Each; Refill: 1 - budesonide-formoterol (Symbicort) 160-4.5 mcg/puff Aerosol inhaler; Inhale 2 puffs 2 times daily. Dispense: 3 Inhaler; Refill: 1 - montelukast (Singulair) 10 MG tablet; Take 1 tablet by mouth daily. Dispense: 90 tablet; Refill: 1 - COMPREHENSIVE METABOLIC PANEL; Future - CBC, EDIF, PLATELET; Future 2. Major depressive disorder, recurrent, in full remission Chronic stable, continue same therapy - FLUoxetine 40 MG capsule; Take 1 capsule by mouth daily. Dispense: 90 capsule; Refill: 1 3. Localized edema Chronic stable, continue same therapy - furOSEmide 20 MG tablet; Take 1 tablet by mouth 2 times daily. Dispense: 180 tablet; Refill: 1 - potassium chloride SA (Klor-Con M10) 10 MEQ Tab CR; Take 1 tablet by mouth 2 times daily. Dispense: 180 tablet; Refill: 1 - COMPREHENSIVE METABOLIC PANEL; Future 4. Mixed hyperlipidemia Change med - rosuvastatin 10 MG tablet; Take 1 tablet by mouth daily. Dispense: 90 tablet; Refill: 1 - COMPREHENSIVE METABOLIC PANEL; Future - LIPID PANEL W CALCULATED LDL; Future 5. Gastroesophageal reflux disease without esophagitis Chronic stable, continue same therapy 6. Obstructive sleep apnea syndrome Chronic stable, continue same therapy 7. IFG (impaired fasting glucose) Advised diet changes, exercise and weight loss - COMPREHENSIVE METABOLIC PANEL; Future 8. Special screening for malignant neoplasm of prostate update - PSA, SCREENING; Future Orders and follow up as documented in patient record; We reviewed diet, exercise and weight control; Repeat labs were ordered and patient was advised to get prior to next appointment; Patient was advised to call with any questions or concerns. If symptoms worsen patient was advised to follow up in our office or the Emergency Dept. Benefits, Risks, Contraindications, and Complications of recommended treatments were explained the patient understands and agrees to proceed with plan. Rob Burns MD 06/25/2020 Nurse Note: Review of Systems Constitutional: Negative for fatigue and fever. HENT: Negative for congestion, ear pain and sore throat. Eyes: Negative for pain and redness. Respiratory: Negative for cough and shortness of breath. Cardiovascular: Negative for chest pain and palpitations. Gastrointestinal: Negative for abdominal pain, constipation, diarrhea, nausea and vomiting. Genitourinary: Negative for difficulty urinating and dysuria. Musculoskeletal: Negative for arthralgias and myalgias. Skin: Negative for rash and wound. Neurological: Negative for dizziness and headaches. All other systems reviewed and are negative. documented in this encounter [facility] Evaluation note Note Date & Type Note Facility documented in this encounter [facility] Evaluation note Note Date & Type Note Facility documented in this encounter [facility] Evaluation note Note Date & Type Note Facility documented in this encounter [facility] Evaluation note Note Date & Type Note Facility documented in this encounter [facility] Work Phone: Evaluation note Note Date & Type Note Facility documented in this encounter [facility] Work Phone: Evaluation note Note Date & Type Note Facility documented in this encounter [facility] Work Phone: Assessments Diagnosis Sprain of calcaneofibular li gament of left ankle, initial encounter - Primary Diagnosis Sprain of calcaneofibular li gament of left ankle, initial encounter - Primary Diagnosis Other chest pain - Primary Anxiety disorder, unspecifie d type Diagnosis Chronic obstructive pulmonary disease, unspecified COPD type Localized edema Edema Major depressive disorder, recurrent, in full remission Major depressive disorder, recurrent episode, in full remission Mixed hyperlipidemia Anxiety disorder, unspecified type Diagnosis Preoperative examination- Primary Unspecified pre-operative examination Erectile dysfunction, unspecified erectile dysfunction type Bladder neck obstruction Post-op pain Other acute postoperative pain Diagnosis Chronic obstructive pulmonary disease, unspecified COPD type Major depressive disorder, recurrent, in full remission Major depressive disorder, recurrent episode, in full remission Localized edema Edema Mixed hyperlipidemia Obstructive sleep apnea syndrome Obstructive sleep apnea (adult) (pediatric) Chest discomfort Other chest pain Diagnosis EDMAR (obstructive sleep apnea) Obstructive sleep apnea (adult) (pediatric) Morbid obesity due to excess calories Chronic obstructive pulmonary disease, unspecified COPD type Diagnosis EDMAR (obstructive sleep apnea) Obstructive sleep apnea (adult) (pediatric) Morbid obesity due to excess calories Chronic obstructive pulmonary disease, unspecified COPD type Diagnosis Obstructive sleep apnea- Primary Obstructive sleep apnea (adult) (pediatric) Overweight Encounter to discuss test results Other specified counseling Encounter for review of form with patient Diagnosis Chronic obstructive pulmonary disease, unspecified COPD type- Primary Major depressive disorder, recurrent, in full remission Major depressive disorder, recurrent episode, in full remission Localized edema Edema Mixed hyperlipidemia IFG (impaired fasting glucose) Impaired fasting glucose Obstructive sleep apnea syndrome Obstructive sleep apnea (adult) (pediatric) Need for influenza vaccination Need for prophylactic vaccination and inoculation against influenza Diagnosis EDMAR (obstructive sleep apnea)- Primary Obstructive sleep apnea (adult) (pediatric) Diagnosis Chronic obstructive pulmonary disease, unspecified COPD type- Primary Major depressive disorder, recurrent, in full remission Major depressive disorder, recurrent episode, in full remission Localized edema Edema Mixed hyperlipidemia IFG (impaired fasting glucose) Impaired fasting glucose Atypical lymphocytosis Lymphocytosis (symptomatic) BMI 40.0-44.9, adult Body Mass Index 40.0-44.9, adult Special screening for malignant neoplasm of prostate Diagnosis Chronic obstructive pulmonary disease, unspecified COPD type- Primary Anxiety disorder, unspecified type Major depressive disorder, recurrent, in full remission Major depressive disorder, recurrent episode, in full remission Localized edema Edema Mixed hyperlipidemia Vitamin D deficiency, unspecified IFG (impaired fasting glucose) Impaired fasting glucose Obstructive sleep apnea syndrome Obstructive sleep apnea (adult) (pediatric) Diagnosis Preoperative examination Unspecified pre-operative examination Erectile dysfunction, unspecified erectile dysfunction type Summary Purpose Family History No Family History Records FoundNo Family History Records FoundNo Family History Records FoundNo Family History Records FoundNo Family History Records FoundNo Family History Records FoundNo Family History Records FoundNo Family History Records Found Advance Directives Documents on File Type Date Recorded Patient Log 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 Chief Complaint Patient presents with ED Follow-up Chest Pain HPI: Hospitalized for observation: he was having chest pain, went in to the ER in [place], work up for CO was negative, they then did a dobutamine stress which was also negative, was substernal, radiated up the neck into the jaw and shoulder, lasted around 2 hours, woke with the pain, has had similar before in September of 2006 he was diagnosed with anxiety at that time. He does report a lot of stress right now. He has a special needs kid at home that gives him challenges. He denies symptoms of depression. He reports sleeping okay. Energy level is okay. ROS: Constitutional: Negative for fatigue, fever and unexpected weight change. HENT: Negative for congestion and ear pain. Eyes: Negative for pain and visual disturbance. Respiratory: Negative for cough and shortness of breath. Cardiovascular: Negative for chest pain and palpitations. Gastrointestinal: Negative for abdominal pain, constipation, diarrhea and nausea. Genitourinary: Negative for difficulty urinating and dysuria. Musculoskeletal: Negative for arthralgias and myalgias. Skin: Negative for rash and wound. Neurological: Negative for dizziness and headaches. All other systems reviewed and are negative. Past medical/family/social history: reviewed and updated, see documented in patient's chart. Physical Exam: Blood pressure 127/76, pulse 62, weight 133.8 kg (295 lb), SpO2 92 %. Body mass index is 42.33 kg/m . Physical Exam Constitutional: He is oriented to person, place, and time. No distress. HENT: Head: Normocephalic and atraumatic. Eyes: Pupils are equal, round, and reactive to light. Conjunctivae are normal. Neck: Normal range of motion. Neck supple. Cardiovascular: Normal rate and normal heart sounds. Pulmonary/Chest: Effort normal and breath sounds normal. No respiratory distress. Abdominal: Soft. Musculoskeletal: He exhibits edema (1+ bilateral pitting). Neurological: He is alert and oriented to person, place, and time. No cranial nerve deficit. Gait normal. Skin: Skin is warm and dry. He is not diaphoretic. Psychiatric: Mood and affect normal. Assessment/Plan: 1. Other chest pain It does not appear to be cardiac related, discussed reducing cardiac risk factors, 2. Anxiety disorder, unspecified type Start Buspirone as needed for anxiety symptoms - busPIRone 10 MG Tab tablet; Take 1 tablet by mouth 3 times daily. Dispense: 30 tablet; Refill: 1 Greater than 25 minutes was spent with the patient, greater than 50% discussing his care, counseling him on the appropriate decisions in his care,etc. All of his questions were answered to his satisfaction. Orders and follow up as documented in patient record; We reviewed diet, exercise and weight control; Patient was advised to call with any questions or concerns. If symptoms worsen patient was advised to follow up in our office or the Emergency Dept. Benefits, Risks, Contraindications, and Complications of recommended treatments were explained the patient understands and agrees to proceed with plan. Rob Burns MD 01/31/2018 * Crissy Kinney LPN - 01/31/2018 2:00 PM EST Formatting of this note may be different from the original. Nurse Note: Review of Systems Constitutional: Negative for fatigue, fever and unexpected weight change. HENT: Negative for congestion and ear pain. Eyes: Negative for pain and visual disturbance. Respiratory: Negative for cough and shortness of breath. Cardiovascular: Negative for chest pain and palpitations. Gastrointestinal: Negative for abdominal pain, constipation, diarrhea and nausea. Genitourinary: Negative for difficulty urinating and dysuria. Musculoskeletal: Negative for arthralgias and myalgias. Skin: Negative for rash and wound. Neurological: Negative for dizziness and headaches. All other systems reviewed and are negative. Nursing Assessment: Physical Exam in this encounter* Crissy Kinney LPN - 03/01/2018 8:15 AM EST Formatting of this note may be different from the original. Nurse Note: Review of Systems Constitutional: Negative for fatigue, fever and unexpected weight change. HENT: Negative for congestion and ear pain. Eyes: Negative for pain and visual disturbance. Respiratory: Negative for cough and shortness of breath. Cardiovascular: Negative for chest pain and palpitations. Gastrointestinal: Negative for abdominal pain, constipation, diarrhea and nausea. Genitourinary: Negative for difficulty urinating and dysuria. Musculoskeletal: Negative for arthralgias and myalgias. Skin: Negative for rash and wound. Neurological: Negative for dizziness and headaches. All other systems reviewed and are negative. Nursing Assessment: Physical Exam * Rob Burns MD - 03/01/2018 8:15 AM EST Formatting of this note may be different from the original. Chief Complaint Patient presents with Results Chronic Obstructive Pulmonary Disease Wears 3LPM at night only with C-PAP Edema Depression Hyperlipidemia HPI: Regarding Hyperlipidemia: Rainer comes in today to follow up on chronic hyperlipidemia. This condition has been under good control. Pt reports that he has been compliant with his medications. Pt denies side effects from medication including myalgias, weakness or joint pain. Alleviating factors include: simvastatin Exacerbating factors include: poor diet, lack of exercise Other significant medical conditions include: see problem list Lab Results Component Value Date CHOLESTEROL 198 02/16/2018 TRIG 103 02/16/2018 HDL 45 02/16/2018 LDLCALC 132 (H) 02/16/2018 Lab Results Component Value Date ALT 20 02/16/2018 AST 15 02/16/2018 ALKPHOS 75 02/16/2018 BILITOTAL 1.0 02/16/2018 BILIDIRECT <0.3 (H) 08/24/2017 His hyperlipidemia severity is mild due to the above factors. Regarding Anxiety/Depression: Rainer presents with the complaint of anxiety/depression which is currently under suboptimal control. He reports the following triggers: stress, dealing with a teen with mental issues Other symptoms include: increased stress, has been taking Buspar, not helping, only took it for 3 days Current treatment includes: fluoxetine, Buspar Significant medical conditions: see problem list In Regards to COPD: Rainer Soriano presents in follow up for COPD, which is chronic and stable. Control is at baseline. No increase in rescue use. No increase in cough, sputum, SOB. Compliance with medication is good.No medication side effects. he denies fever, chills, headache, sore throat, chest pain, palpitations, nausea, vomiting, diarrhea, dysuria, frequency, hematuria. In regards to edema: Rainer presents with the complaint of edema: Location: mid-tibia Onset: years ago Frequency: daily Significant PMH: morbid obesity Significant medications: furosemide Triggers/exacerbating factors: weight, sedentary lifestyle Alleviating factors: diuretics and support stockings Other: Leg Swelling , denies chest pain, SOB, orthopnea, has occasional palpitations he associates it with dehydration. In Regards to GERD: Rainer Soriano is a 62 y.o. male who presents in follow up for GERD/gastritis. Symptoms are undergood control. There are no side effects noted from the medication. he denies water brash, bitter or metallic taste, dysphagia, nausea, vomiting, hematemesis, melena, or black/tarry stools. He takes the medication on a daily basis and has recurrence of symptoms when reducing frequency of medication usage. Regarding elevated fasting glucose: Rainer presents in follow up of lab results that reveal elevated fasting glucose of Lab Results Component Value Date GLUCOSE 104 (H) 02/16/2018 Exacerbating factors include:poor diet, sedentary lifestyle, no regular exercise, obesity Onset of problem: new onset Condition is: new Currently treated with: none Other significant medical conditions include: see problem list ROS: Constitutional: Negative for fatigue, fever and unexpected weight change. HENT: Negative for congestion and ear pain. Eyes: Negative for pain and visual disturbance. Respiratory: Negative for cough and shortness of breath. Cardiovascular: Negative for chest pain and palpitations. Gastrointestinal: Negative for abdominal pain, constipation, diarrhea and nausea. Genitourinary: Negative for difficulty urinating and dysuria. Musculoskeletal: Negative for arthralgias and myalgias. Skin: Negative for rash and wound. Neurological: Negative for dizziness and headaches. All other systems reviewed and are negative. Physical Exam: Blood pressure 142/73, pulse 76, weight 134.5 kg (296 lb 8 oz), SpO2 96 %. Body mass index is 42.54 kg/m . Physical Exam Constitutional: He is oriented to person, place, and time. No distress. HENT: Head: Normocephalic and atraumatic. Eyes: Pupils are equal, round, and reactive to light. Conjunctivae are normal. Neck: Normal range of motion. Neck supple. Cardiovascular: Normal rate and normal heart sounds. Pulmonary/Chest: Effort normal. No respiratory distress. He has decreased breath sounds. Abdominal: Soft. Musculoskeletal: He exhibits edema (1+ bilateral pitting). Lumbar back: He exhibits tenderness and spasm. Neurological: He is alert and oriented to person, place, and time. No cranial nerve deficit. Gait normal. Skin: Skin is warm and dry. He is not diaphoretic. Psychiatric: Mood and affect normal. Assessment/Plan: 1. Chronic obstructive pulmonary disease, unspecified COPD type Chronic stable, continue same therapy - albuterol (2.5 MG/3ML) 0.083% inhalation solution; Take 3 mL by nebulization every 4 hours as needed. Every 4-6 hours Dispense: 100 vial; Refill: 3 - Aclidinium [place] (TUDORZA PRESSAIR) 400 MCG/ACT Aerosol Powder, breath activated inhalation powder; Inhale 1 Units 2 times daily. Dispense: 3 Each; Refill: 1 - budesonide-formoterol (SYMBICORT) 160-4.5 mcg/puff Aerosol inhaler; Inhale 2 puffs 2 times daily.Dispense: 3 Inhaler; Refill: 1 - montelukast (SINGULAIR) 10 MG Tab tablet; Take 1 tablet by mouth daily. Dispense: 90 tablet; Refill: 1 2. Localized edema Chronic stable, continue same therapy - furOSEmide 20 MG Tab tablet; Take 1 tablet by mouth 2 times daily. Dispense: 180 tablet; Refill: 1 - potassium chloride SA (KLOR-CON M10) 10 MEQ Tab CR; Take 1 tablet by mouth 2 times daily. Dispense: 180 tablet; Refill: 1 3. Major depressive disorder, recurrent, in full remission Increase dose - fluoxetine 40 MG Cap; Take 1 capsule by mouth daily. Dispense: 90 capsule; Refill: 1 4. Mixed hyperlipidemia Chronic stable, continue same therapy - simvastatin 20 MG Tab tablet; Take 1 tablet by mouth every evening at 6 PM. Dispense: 90 tablet; Refill: 1 - HEPATIC FUNCTION PANEL; Future - LIPID PANEL W CALCULATED LDL; Future 5. Anxiety disorder, unspecified type Increase dose - busPIRone 15 MG Tab tablet; Take 1 tablet by mouth 3 times daily. Dispense: 90 tablet; Refill: 1 Orders and follow up as documented in patient record; We reviewed diet, exercise and weight control; Repeat labs were ordered and patient was advised to get prior to next appointment; Patient was advised to call with any questions or concerns. If symptoms worsen patient was advised to follow up in our office or the Emergency Dept. Benefits, Risks, Contraindications, and Complications of recommended treatments were explained the patient understands and agrees to proceed with plan. Rob Burns MD 03/01/2018 in this encounter* Pilo Salazar - 09/15/2018 11:20 AM EDT Pastoral Care Eucharist probation officer visited patient to attend to sacramental needs. Rev. Pilo Salazar M.Div., [facility] Staff Route Process Administrator, Palliative Care [id number] 09/15/18 1120 Clinical Encounter Type Visit Type Non Crisis Non Crisis Visit Sacrament Visited With Patient Visited By Eucharistic Ruby Rails Developer Visit Length (minutes) 1-15 Sacramental Encounters Communion Given Indicator No Patient Spiritual Assessment Spiritual Assessed Unable to Assess 09/15/18 1120 Clinical Encounter Type Visit Type Non Crisis Non Crisis Visit Sacrament Visited With Patient Visited By Eucharistic Ruby Rails Developer Visit Length (minutes) 1-15 Sacramental Encounters Communion Given Indicator No Patient Spiritual Assessment Spiritual Assessed Unable to Assess 09/15/18 1120 Clinical Encounter Type Visit Type Non Crisis Non Crisis Visit Sacrament Visited With Patient Visited By Eucharistic Ruby Rails Developer Visit Length (minutes) 1-15 Sacramental Encounters Communion Given Indicator No Patient Spiritual Assessment Spiritual Assessed Unable to Assess documented in this encounter* Rob Burns MD - 07/20/2019 10:30 AM EDT Chief Complaint Patient presents with Results Chronic Obstructive Pulmonary Disease Hyperlipidemia Depression Edema Referral Patient would like to discuss getting a new referral for a different Resaw Carriage Operator. HPI: Occasional flutter in chest: happens less than once per month, only lasts a few seconds. Goes away with calmly breathing. No pattern to when it comes. He states the last time it happened was March, he denies any other symptoms with it. Regarding Hyperlipidemia: Rainer comes in today to follow up on chronic hyperlipidemia. This condition has been under good control. Pt reports that he has been compliant with his medications. Pt denies side effects from medication including myalgias, weakness or joint pain. Alleviating factors include: simvastatin Exacerbating factors include: poor diet, lack of exercise Other significant medical conditions include: see problem list Lab Results Component Value Date CHOLESTEROL 197 07/12/2019 TRIG 107 07/12/2019 HDL 49 07/12/2019 LDLCALC 127 (H) 07/12/2019 Lab Results Component Value Date ALT 20 07/12/2019 AST 19 07/12/2019 ALKPHOS 72 07/12/2019 BILITOTAL 1.1 07/12/2019 BILIDIRECT 0.2 07/12/2019 His hyperlipidemia severity is mild due to the above factors. Regarding Anxiety/Depression: Rainer presents with the complaint of anxiety/depression which is currently under improved control. He reports the following triggers: stress, dealing with a teen with mental issues Other symptoms include: Current treatment includes: fluoxetine, Buspar Significant medical conditions: see problem list In Regards to COPD: Rainer Soriano presents in follow up for COPD, which is chronic and stable. Control is at baseline. No increase in rescue use. No increase in cough, sputum, SOB. Compliance with medication is good.No medication side effects. he denies fever, chills, headache, sore throat, chest pain, palpitations, nausea, vomiting, diarrhea, dysuria, frequency, hematuria. Sleep apnea: has been seeing Dr Nazario and would like to change. In regards to edema: Rainer presents with the complaint of edema: Location: mid-tibia Onset: years ago Frequency: daily Significant PMH: morbid obesity Significant medications: furosemide Triggers/exacerbating factors: weight, sedentary lifestyle Alleviating factors: diuretics and support stockings Other: Leg Swelling , denies chest pain, SOB, orthopnea, has occasional palpitations he associates it with dehydration. In Regards to GERD: Rainer Soriano is a 63 y.o. male who presents in follow up for GERD/gastritis. Symptoms are undergood control. There are no side effects noted from the medication. he denies water brash, bitter or metallic taste, dysphagia, nausea, vomiting, hematemesis, melena, or black/tarry stools. He takes the medication on a daily basis and has recurrence of symptoms when reducing frequency of medication usage. ROS: Nurse Note: Review of Systems Constitutional: Negative for fatigue and fever. HENT: Negative for congestion, ear pain and sore throat. Eyes: Negative for pain and redness. Respiratory: Negative for cough and shortness of breath. Cardiovascular: Negative for chest pain and palpitations. Gastrointestinal: Negative for abdominal pain, constipation, diarrhea, nausea and vomiting. Genitourinary: Negative for difficulty urinating and dysuria. Musculoskeletal: Negative for arthralgias and myalgias. Skin: Negative for rash and wound. Neurological: Negative for dizziness and headaches. All other systems reviewed and are negative. Physical Exam: Blood pressure 120/70, pulse 67, height 1.778 m (5' 10 ), weight 131.2 kg (289 lb 4.8 oz), SpO2 92 %. Body mass index is 41.51 kg/m . Physical Exam Constitutional: He is oriented to person, place, and time. No distress. HENT: Head: Normocephalic and atraumatic. Eyes: Pupils are equal, round, and reactive to light. Conjunctivae are normal. Neck: Normal range of motion. Neck supple. Cardiovascular: Normal rate and normal heart sounds. Pulmonary/Chest: Effort normal. No respiratory distress. He has decreased breath sounds. Abdominal: Soft. Musculoskeletal: General: Edema (1+ bilateral pitting) present. Lumbar back: He exhibits tenderness and spasm. Neurological: He is alert and oriented to person, place, and time. No cranial nerve deficit. Gait normal. Skin: Skin is warm and dry. He is not diaphoretic. Psychiatric: Mood and affect normal. Assessment/Plan: 1. Chronic obstructive pulmonary disease, unspecified COPD type Chronic stable, continue same therapy - Aclidinium [place] (Tudorza Pressair) 400 MCG/ACT Aerosol Powder, breath activated inhalation powder; Inhale 1 Units 2 times daily. Dispense: 3 Each; Refill: 1 - budesonide-formoterol (Symbicort) 160-4.5 mcg/puff Aerosol inhaler; Inhale 2 puffs 2 times daily.Dispense: 3 Inhaler; Refill: 1 - montelukast (Singulair) 10 MG tablet; Take 1 tablet by mouth daily. Dispense: 90 tablet; Refill: 1 - AMB REFERRAL TO PULMONARY - COMPREHENSIVE METABOLIC PANEL; Future - CBC, EDIF, PLATELET; Future - LIPID PANEL W CALCULATED LDL; Future 2. Major depressive disorder, recurrent, in full remission Chronic stable, continue same therapy - FLUoxetine 40 MG capsule; Take 1 capsule by mouth daily. Dispense: 90 capsule; Refill: 1 3. Localized edema Chronic stable, continue same therapy - furOSEmide 20 MG tablet; Take 1 tablet by mouth 2 times daily. Dispense: 180 tablet; Refill: 1 - potassium chloride SA (Klor-Con M10) 10 MEQ Tab CR; Take 1 tablet by mouth 2 times daily. Dispense: 180 tablet; Refill: 1 - COMPREHENSIVE METABOLIC PANEL; Future - CBC, EDIF, PLATELET; Future - LIPID PANEL W CALCULATED LDL; Future 4. Mixed hyperlipidemia Chronic stable, continue same therapy - simvastatin 20 MG tablet; Take 1 tablet by mouth every evening at 6 PM. Dispense: 90 tablet; Refill: 1 - COMPREHENSIVE METABOLIC PANEL; Future - CBC, EDIF, PLATELET; Future - LIPID PANEL W CALCULATED LDL; Future 5. Obstructive sleep apnea syndrome Will refer to new design coordinator - AMB REFERRAL TO PULMONARY 6. Chest discomfort Patient is not interested in work up at this time, I advised him that if his symptom is that rare it would be hard for us to get evidence of it. He was concerned about afib, I explained that althoughthat is a possibility it is less likely due to the fact that he has no history of HTN which is an underlying cause of afib. We could get an echocardiogram and assess the size of his atria and see if he is at risk, but he prefers to observe for now. Orders and follow up as documented in patient record; We reviewed diet, exercise and weight control; Repeat labs were ordered and patient was advised to get prior to next appointment; Patient was advised to call with any questions or concerns. If symptoms worsen patient was advised to follow up in our office or the Emergency Dept. Benefits, Risks, Contraindications, and Complications of recommended treatments were explained the patient understands and agrees to proceed with plan. Rob Burns MD 07/20/2019 * Anna Grady LPN - 07/20/2019 10:30 AM EDT Nurse Note: Review of Systems Constitutional: Negative for fatigue and fever. HENT: Negative for congestion, ear pain and sore throat. Eyes: Negative for pain and redness. Respiratory: Negative for cough and shortness of breath. Cardiovascular: Negative for chest pain and palpitations. Gastrointestinal: Negative for abdominal pain, constipation, diarrhea, nausea and vomiting. Genitourinary: Negative for difficulty urinating and dysuria. Musculoskeletal: Negative for arthralgias and myalgias. Skin: Negative for rash and wound. Neurological: Negative for dizziness and headaches. All other systems reviewed and are negative. documented in this encounter* Arnold Burgos MD - 09/07/2019 8:30 AM EDT SUBJECTIVE: Rainer Soriano is a 63 y.o. male being seen today for sleep follow up. Currently on home CPAP at 13 cmH2O with 4 LPM oxygen bleed in. Patient stated that he is benefiting from the therapy. However he stated that his CPAP is getting old and parts are [place] out. He stated that his compliance is exc ellent. He stated that he has put on some weight. He takes naps occasionally. He also has COPD and takes Symbicort, Tudorza and Albuterol. Nursing Assessment Oxygen Use- 4 LPM bled in to CPAP Most Recent Ct Thorax- Symptoms include : Increase in shortness of breath- no Dyspnea upon Exertion yes Dyspnea at rest- no Chest pain-no Cough-no Wheezing-sometimes Swelling LE-yes Hemoptysis- no Coldiron score 6 Most recent sleep study About 7 years ago CPAP/ BiPAP pressure 13 cmH20 Patient is benefiting from PAP therapy yes [employer] Oxygen use 4 LPM Symptoms include:wearing cpap Snoring- no Insomnia - no Waking with gasping / shortness of breath-no Snorting during sleep-no Difficulty concentrating-no Waking with headaches-no Significant weight changes- no Daytime sleepiness-no Pt. Here for EDMAR and COPD follow up. Pt. Would like a new machine, feels like it's not working likeit used too. CURRENT MEDICATIONS: Current Outpatient Medications Medication Sig Dispense Refill Aclidinium [place] (Tudorza Pressair) 400 MCG/ACT Aerosol Powder, breath activated inhalation powder Inhale 1 Units 2 times daily. 3 Each 1 albuterol (2.5 MG/3ML) 0.083% inhalation solution Take 3 mL by nebulization every 4 hours as needed. Every 4-6 hours 100 vial 3 budesonide-formoterol (Symbicort) 160-4.5 mcg/puff Aerosol inhaler Inhale 2 puffs 2 times daily. 3 Inhaler 1 Cholecalciferol (VITAMIN D3) 5000 units Tab take 5,000 Units by mouth daily.. FLUoxetine 40 MG capsule Take 1 capsule by mouth daily. 90 capsule 1 furOSEmide 20 MG tablet Take 1 tablet by mouth 2 times daily. 180 tablet 1 montelukast (Singulair) 10 MG tablet Take 1 tablet by mouth daily. 90 tablet 1 omeprazole [address] take 20 mg by mouth daily.. potassium chloride SA (Klor-Con M10) 10 MEQ Tab CR Take 1 tablet by mouth 2 times daily. 180 tablet1 simvastatin 20 MG tablet Take 1 tablet by mouth every evening at 6 PM. 90 tablet 1 No current facility-administered medications for this visit. PHYSICAL EXAMINATION: Blood pressure 140/70, pulse 78, resp. rate 18, height 1.778 m (5' 10 ), weight 132.4 kg (291 lb 12.8 oz), SpO2 93 %. Lungs: Clear to auscultation bilaterally. Heart: Regular in rate and rhythm. Abd: Soft and non-distended. Skin: No obvious rashes or cyanosis. Neuro: Grossly non-focal examination. MS: No joint erythema/edema. ASSESSMENT & PLAN: * EDMAR * Morbid Obesity * COPD * Patient was advised to lose weight. * Patient was advised to avoid alcohol and sedative medications. * Patient was advised to exercise precaution while operating a motorized vehicle. * Patient was advised to maintain a regular sleep schedule. * Will order for an overnight Polysomnography to reassess and optimize his therapy. * Patient will continue with his Symbicort, Tudorza and Albuterol. * Chloe Garsia LPN - 09/07/2019 8:30 AM EDT Nursing Assessment Oxygen Use- 4 LPM bled in to CPAP Most Recent Ct [place]- Symptoms include : Increase in shortness of breath- no Dyspnea upon Exertion yes Dyspnea at rest- no Chest pain-no Cough-no Wheezing-sometimes Swelling LE-yes Hemoptysis- no Coldiron score 6 Most recent sleep study About 7 years ago CPAP/ BiPAP pressure 13 cmH20 Patient is benefiting from PAP therapy yes [facility] [place] [employer] Oxygen use 4 LPM Symptoms include:wearing cpap Snoring- no Insomnia - no Waking with gasping / shortness of breath-no Snorting during sleep-no Difficulty concentrating-no Waking with headaches-no Significant weight changes- no Daytime sleepiness-no Pt. Here for EDMAR and COPD follow up. Pt. Would like a new machine, feels like it's not working likeit used too. documented in this encounter* Kenan Waddell - 09/30/2019 9:00 PM EDT ..Patient arrived at 2034 escorted to room 03 Test completed The following is attached to the encounter: Test Data/Misc documented in this encounter* Heather Rea, MARKUS-BELT LACER - 12/22/2019 9:45 AM EST HPI: SUBJECTIVE: Rainer Soriano is a 64 y.o. male being seen today for sleep follow up. Most recent polysomnography showed: severe obstructive sleep apnea. Currently on home CPAP at 14 cmH2O. Patient stated that heis benefiting from the therapy. His compliance is excellent. Average AHI from the compliance reportwas 1.1. He denied any daytime fatigue, excessive daytime sleepiness, or weight changes. Current sleep problems/side effects include: None. Denies snoring. History and Allergies Allergies Allergen Reactions Nyquil Severe Cold-Flu [Lzrmtnbsc-Uhbbixqqcm-Nn-Apap] Hives and Headache Dust Mite Extract Nasal Drainage Seasonal [*Seasonal] Pollen: nasal Drainage Past Medical History: Diagnosis Date Anxiety disorder, unspecified Asthma with COPD with exacerbation Depression Edema, unspecified Elevated blood pressure reading without diagnosis of hypertension Essential (primary) hypertension Fluid retention Ganglion, right hand Gastroesophageal reflux disease without esophagitis GERD (gastroesophageal reflux disease) Gynecomastia, male H/O colonoscopy 09/07/2014 Dr. Ibarra; + polyps Hypercholesteremia Localized edema Low back pain Major depressive disorder, recurrent, in full remission Mixed hyperlipidemia Pain in right arm Prostate cancer Pure hypercholesterolemia Radiation prostate Venous insufficiency (chronic) (peripheral) Vitamin D deficiency, unspecified Past Surgical History: Procedure Laterality Date HAND SURGERY 02/[address] Patrick [place] INSERT,INFLATABLE PENILE PROSTHESIS -2008 PROSTATECTOMY HEART CATHETERIZATION 2006 ACL RECONSTRUCTION 1993 left knee Social History Socioeconomic History Marital status: Spouse name: Not on file Number of children: Not on file Years of education: Not on file Highest education level: Not on file Occupational History Not on file Social Needs Financial resource strain: Not on file Food insecurity Worry: Not on file Inability: Not on file Transportation needs Medical: Not on file Non-medical: Not on file Tobacco Use Smoking status: Former Smoker Years: 30.00 Types: Cigarettes Quit date: 09/27/2006 Years since quittin.2 Smokeless tobacco: Never Used Substance and Sexual Activity Alcohol use: No Drug use: No Sexual activity: Not on file Lifestyle Physical activity Days per week: Not on file Minutes per session: Not on file Stress: Not on file Relationships Social connections Talks on phone: Not on file Gets together: Not on file Attends roman catholic service: Not on file Active member of club or organization: Not on file Attends meetings of clubs or organizations: Not on file Relationship status: Not on file Intimate partner violence Fear of current or ex partner: Not on file Emotionally abused: Not on file Physically abused: Not on file Forced sexual activity: Not on file Other Topics Concern Not on file Social History Narrative Not on file Family History Problem Relation Age of Onset Cancer- Other Father type unknown age 55 dec'd 57 Cancer- Other Sister cancer unknown; age 54 dec'd Cancer- Other Brother bladder cancer age 60's at dx; Aneurysm Mother Brain Vitals: 12/22/19 0854 BP: 114/78 Pulse: 78 Resp: 22 SpO2: 95% Weight: (!) 136.8 kg (301 lb 9.6 oz) Height: 1.778 m (5' 10 ) Physical Examination Physical Exam Vitals signs and nursing note reviewed. Constitutional: General: He is not in acute distress. Appearance: He is well-developed. Comments: Negative for chills, fever HENT: Head: Normocephalic and atraumatic. Right Ear: External ear normal. Left Ear: External ear normal. Nose: Nose normal. Eyes: General: Right eye: No discharge. Left eye: No discharge. Conjunctiva/sclera: Conjunctivae normal. Pupils: Pupils are equal, round, and reactive to light. Neck: Musculoskeletal: Normal range of motion and neck supple. Vascular: No JVD. Cardiovascular: Rate and Rhythm: Normal rate and regular rhythm. Heart sounds: Normal heart sounds. No murmur. No friction rub. No gallop. Comments: Negative for chest pain Pulmonary: Effort: Pulmonary effort is normal. No respiratory distress. Breath sounds: Normal breath sounds. No wheezing. Abdominal: General: Bowel sounds are normal. Palpations: Abdomen is soft. Musculoskeletal: Normal range of motion. General: No deformity. Skin: General: Skin is warm and dry. Neurological: Mental Status: He is alert and oriented to person, place, and time. Psychiatric: Judgment: Judgment normal. Comments: Negative for sleep disturbance Nursing Assessment Coldiron score 3 Most recent sleep study- 09/2019 CPAP/ BiPAP pressure 14 cmH20 Patient is benefiting from PAP therapy yes [employer] Oxygen use 4 LPM at night Symptoms include:wearing cpap Snoring- no Insomnia - no Waking with gasping / shortness of breath-no Snorting during sleep-no Difficulty concentrating-no Waking with headaches-no Significant weight changes- no Daytime sleepiness-no Here for sleep results, he did a test years ago and needed a new test. New machine and mask are working well. CURRENT MEDICATIONS: Current Outpatient Medications Medication Sig Dispense Refill Aclidinium [place] (Tudorza Pressair) 400 MCG/ACT Aerosol Powder, breath activated inhalation powder Inhale 1 Units 2 times daily. 3 Each 1 albuterol (2.5 MG/3ML) 0.083% inhalation solution Take 3 mL by nebulization every 4 hours as needed. Every 4-6 hours 100 vial 3 budesonide-formoterol (Symbicort) 160-4.5 mcg/puff Aerosol inhaler Inhale 2 puffs 2 times daily. 3 Inhaler 1 Cholecalciferol (VITAMIN D3) 5000 units Tab take 5,000 Units by mouth daily.. FLUoxetine 40 MG capsule Take 1 capsule by mouth daily. 90 capsule 1 furOSEmide 20 MG tablet Take 1 tablet by mouth 2 times daily. 180 tablet 1 Misc. Devices Misc by Unknown route. CPAP pressure 14 cm H2O set up 10/06/2019 [employer] montelukast (Singulair) 10 MG tablet Take 1 tablet by mouth daily. 90 tablet 1 omeprazole [address] take 20 mg by mouth daily.. potassium chloride SA (Klor-Con M10) 10 MEQ Tab CR Take 1 tablet by mouth 2 times daily. 180 tablet1 simvastatin 20 MG tablet Take 1 tablet by mouth every evening at 6 PM. 90 tablet 1 No current facility-administered medications for this visit. Lungs: Clear to auscultation bilaterally. Heart: Regular in rate and rhythm. Abd: Soft and non-distended. Skin: No obvious rashes or cyanosis. Neuro: Grossly non-focal examination. MS: No joint erythema/edema. ROS Reviewed. Sleep study and compliance report form was reviewed together with the patient during this visit. The sleep study result was reviewed and discussed with the patient during this visit ASSESSMENT & PLAN: * Severe EDMAR * Obesity * Reviewed Test Results from Polysomnography * Reviewed CPAP Compliance Form * Patient was advised to continue with positive pressure therapy at home. * Patient was advised to adhere to a regular sleep hygiene habits. * Reinforced: adverse consequences of EDMAR, compliance, wt loss, side sleeping if feasible, sleep hygiene (and avoid/minimize alcohol, sedative/respiratory depressant meds, nicotine/smoking cessation:quit), not driving/operating machinery while sleepy. 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 New machine and mask are working well. documented in this encounter* Rob Burns MD - 01/01/2020 9:30 AM EST Chief Complaint Patient presents with Results Chronic Obstructive Pulmonary Disease Hyperlipidemia Esophageal Reflux Depression Obstructive Sleep Apnea Patient uses CPAP nightly and benefits from it. HPI: Occasional flutter in chest: happens less than once per month, only lasts a few seconds. Goes away with calmly breathing. No pattern to when it comes. He states the last time it happened was September, he denies any other symptoms with it. He has only had one since his last appt. He thinks it is related to stress. Regarding Hyperlipidemia: Rainer comes in today to follow up on chronic hyperlipidemia. This condition has been under good control. Pt reports that he has been compliant with his medications. Pt denies side effects from medication including myalgias, weakness or joint pain. Alleviating factors include: simvastatin Exacerbating factors include: poor diet, lack of exercise Other significant medical conditions include: see problem list Lab Results Component Value Date CHOLESTEROL 186 12/22/2019 TRIG 86 12/22/2019 HDL 59 12/22/2019 LDLCALC 110 (H) 12/22/2019 Lab Results Component Value Date ALT 23 12/22/2019 AST 19 12/22/2019 ALKPHOS 67 12/22/2019 BILITOTAL 1.0 12/22/2019 BILIDIRECT 0.2 07/12/2019 His hyperlipidemia severity is mild due to the above factors. Regarding Anxiety/Depression: Rainer presents with the complaint of anxiety/depression which is currently under improved control. He reports the following triggers: stress, dealing with a teen with mental issues Other symptoms include: Current treatment includes: fluoxetine, Buspar Significant medical conditions: see problem list In Regards to COPD: Rainer Soriano presents in follow up for COPD, which is chronic and stable. Control is at baseline. No increase in rescue use. No increase in cough, sputum, SOB. Compliance with medication is good.No medication side effects. he denies fever, chills, headache, sore throat, chest pain, palpitations, nausea, vomiting, diarrhea, dysuria, frequency, hematuria. Sleep apnea: has been seeing Dr Nazario and would like to change. In regards to edema: Rainer presents with the complaint of edema: Location: mid-tibia Onset: years ago Frequency: daily Significant PMH: morbid obesity Significant medications: furosemide Triggers/exacerbating factors: weight, sedentary lifestyle Alleviating factors: diuretics and support stockings Other: Leg Swelling , denies chest pain, SOB, orthopnea, has occasional palpitations he associates it with dehydration. In Regards to GERD: Rainer Soriano is a 64 y.o. male who presents in follow up for GERD/gastritis. Symptoms are undergood control. There are no side effects noted from the medication. he denies water brash, bitter or metallic taste, dysphagia, nausea, vomiting, hematemesis, melena, or black/tarry stools. He takes the medication on a daily basis and has recurrence of symptoms when reducing frequency of medication usage. Regarding elevated fasting glucose: Rainer presents in follow up of lab results that reveal elevated fasting glucose of Lab Results Component Value Date GLUCOSE 103 (H) 12/22/2019 Exacerbating factors include:poor diet, sedentary lifestyle, no regular exercise, obesity Onset of problem: 02/2018 Condition is: unchanged Currently treated with: none Other significant medical conditions include: see problem list ROS: Nurse Note: Review of Systems Constitutional: Negative for fatigue and fever. HENT: Negative for congestion, ear pain and sore throat. Eyes: Negative for pain and redness. Respiratory: Negative for cough and shortness of breath. Cardiovascular: Negative for chest pain and palpitations. Gastrointestinal: Negative for abdominal pain, constipation, diarrhea, nausea and vomiting. Genitourinary: Negative for difficulty urinating and dysuria. Musculoskeletal: Negative for arthralgias and myalgias. Skin: Negative for rash and wound. Neurological: Negative for dizziness and headaches. All other systems reviewed and are negative. Physical Exam: BP 134/77 Pulse 72 Ht 1.778 m (5' 10 ) Wt (!) 136.4 kg (300 lb 12.8 oz) BMI 43.16 kg/m Smoking Status Former Smoker Body mass index is 43.16 kg/m . Physical Exam Constitutional: He is oriented to person, place, and time. No distress. HENT: Head: Normocephalic and atraumatic. Eyes: Pupils are equal, round, and reactive to light. Conjunctivae are normal. Neck: Normal range of motion. Neck supple. Cardiovascular: Normal rate and normal heart sounds. Pulmonary/Chest: Effort normal. No respiratory distress. He has decreased breath sounds. Abdominal: Soft. Musculoskeletal: General: Edema (1+ bilateral pitting) present. Lumbar back: He exhibits tenderness and spasm. Neurological: He is alert and oriented to person, place, and time. No cranial nerve deficit. Gait normal. Skin: Skin is warm and dry. He is not diaphoretic. Psychiatric: Mood and affect normal. Assessment/Plan: 1. Chronic obstructive pulmonary disease, unspecified COPD type Chronic stable, continue same therapy - montelukast (Singulair) 10 MG tablet; Take 1 tablet by mouth daily. Dispense: 90 tablet; Refill: 1 - budesonide-formoterol (Symbicort) 160-4.5 mcg/puff Aerosol inhaler; Inhale 2 puffs 2 times daily.Dispense: 3 Inhaler; Refill: 1 - Aclidinium [place] (Tudorza Pressair) 400 MCG/ACT Aerosol Powder, breath activated inhalation powder; Inhale 1 Units 2 times daily. Dispense: 3 Each; Refill: 1 2. Major depressive disorder, recurrent, in full remission Chronic stable, continue same therapy - FLUoxetine 40 MG capsule; Take 1 capsule by mouth daily. Dispense: 90 capsule; Refill: 1 3. Localized edema Chronic stable, continue same therapy - furOSEmide 20 MG tablet; Take 1 tablet by mouth 2 times daily. Dispense: 180 tablet; Refill: 1 - potassium chloride SA (Klor-Con M10) 10 MEQ Tab CR; Take 1 tablet by mouth 2 times daily. Dispense: 180 tablet; Refill: 1 4. Mixed hyperlipidemia Chronic stable, continue same therapy - simvastatin 20 MG tablet; Take 1 tablet by mouth every evening at 6 PM. Dispense: 90 tablet; Refill: 1 - HEPATIC FUNCTION PANEL; Future - LIPID PANEL W CALCULATED LDL; Future 5. IFG (impaired fasting glucose) Advised diet changes, exercise and weight loss 6. Obstructive sleep apnea syndrome Chronic stable, continue same therapy 7. Need for influenza vaccination update - influenza quad vaccine 0.5 ML Suspension Prefilled Syringe; Inject 0.5 mL intramuscularly Once (In Clinic) for 1 dose. Dispense: 0.5 mL; Refill: 0 - FLU VACCINE SINGLE DOSE QUADRIVALENT Orders and follow up as documented in patient record; We reviewed diet, exercise and weight control; Repeat labs were ordered and patient was advised to get prior to next appointment; Patient was advised to call with any questions or concerns. If symptoms worsen patient was advised to follow up in our office or the Emergency Dept. Benefits, Risks, Contraindications, and Complications of recommended treatments were explained the patient understands and agrees to proceed with plan. Rob Burns MD 01/01/2020 * Ann Sutton - 01/01/2020 9:30 AM EST Nurse Note: Review of Systems Constitutional: Negative for fatigue and fever. HENT: Negative for congestion, ear pain and sore throat. Eyes: Negative for pain and redness. Respiratory: Negative for cough and shortness of breath. Cardiovascular: Negative for chest pain and palpitations. Gastrointestinal: Negative for abdominal pain, constipation, diarrhea, nausea and vomiting. Genitourinary: Negative for difficulty urinating and dysuria. Musculoskeletal: Negative for arthralgias and myalgias. Skin: Negative for rash and wound. Neurological: Negative for dizziness and headaches. All other systems reviewed and are negative. documented in this encounter* Hermelinda Rodriguez LPN - 09/22/2019 9:00 PM EDT Patient arrived 2044 and escorted to room 2 The following is attached to the encounter: Test Data/Misc documented in this encounter* Rob Burns MD - 02/03/2019 8:45 AM EST Chief Complaint Patient presents with Results Chronic Obstructive Pulmonary Disease Hyperlipidemia Edema Depression HPI: Regarding Hyperlipidemia: Rainer comes in today to follow up on chronic hyperlipidemia. This condition has been under good control. Pt reports that he has been compliant with his medications. Pt denies side effects from medication including myalgias, weakness or joint pain. Alleviating factors include: simvastatin Exacerbating factors include: poor diet, lack of exercise Other significant medical conditions include: see problem list Lab Results Component Value Date CHOLESTEROL 202 (H) 01/23/2019 TRIG 92 01/23/2019 HDL 43 01/23/2019 LDLCALC 141 (H) 01/23/2019 Lab Results Component Value Date ALT 23 01/23/2019 AST 19 01/23/2019 ALKPHOS 73 01/23/2019 BILITOTAL 0.6 01/23/2019 BILIDIRECT 0.1 08/08/2018 His hyperlipidemia severity is mild due to the above factors. Regarding Anxiety/Depression: Rainer presents with the complaint of anxiety/depression which is currently under suboptimal control. He reports the following triggers: stress, dealing with a teen with mental issues Other symptoms include: increased stress, has been taking Buspar, not helping, only took it for 3 days Current treatment includes: fluoxetine, Buspar Significant medical conditions: see problem list In Regards to COPD: Rainer Soriano presents in follow up for COPD, which is chronic and stable. Control is at baseline. No increase in rescue use. No increase in cough, sputum, SOB. Compliance with medication is good.No medication side effects. he denies fever, chills, headache, sore throat, chest pain, palpitations, nausea, vomiting, diarrhea, dysuria, frequency, hematuria. In regards to edema: Rainer presents with the complaint of edema: Location: mid-tibia Onset: years ago Frequency: daily Significant PMH: morbid obesity Significant medications: furosemide Triggers/exacerbating factors: weight, sedentary lifestyle Alleviating factors: diuretics and support stockings Other: Leg Swelling , denies chest pain, SOB, orthopnea, has occasional palpitations he associates it with dehydration. In Regards to GERD: Rainer Soriano is a 63 y.o. male who presents in follow up for GERD/gastritis. Symptoms are undergood control. There are no side effects noted from the medication. he denies water brash, bitter or metallic taste, dysphagia, nausea, vomiting, hematemesis, melena, or black/tarry stools. He takes the medication on a daily basis and has recurrence of symptoms when reducing frequency of medication usage. Regarding elevated fasting glucose: Rainer presents in follow up of lab results that reveal elevated fasting glucose of Lab Results Component Value Date GLUCOSE 109 (H) 01/23/2019 Exacerbating factors include:poor diet, sedentary lifestyle, no regular exercise, obesity Onset of problem: a year ago Condition is: not changed Currently treated with: none Other significant medical conditions include: see problem list ROS: Nurse Note: Review of Systems Constitutional: Negative for fatigue and fever. HENT: Negative for congestion, ear pain and sore throat. Eyes: Negative for pain and redness. Respiratory: Negative for cough and shortness of breath. Cardiovascular: Negative for chest pain and palpitations. Gastrointestinal: Negative for abdominal pain, constipation, diarrhea, nausea and vomiting. Genitourinary: Negative for difficulty urinating and dysuria. Musculoskeletal: Negative for arthralgias and myalgias. Skin: Negative for rash and wound. Neurological: Negative for dizziness and headaches. All other systems reviewed and are negative. Physical Exam: Blood pressure 131/76, pulse 73, height 1.778 m (5' 10 ), weight 136 kg (299 lb 14.4 oz), SpO2 92 %. Body mass index is 43.03 kg/m . Physical Exam Constitutional: He is oriented to person, place, and time. No distress. HENT: Head: Normocephalic and atraumatic. Eyes: Pupils are equal, round, and reactive to light. Conjunctivae are normal. Neck: Normal range of motion. Neck supple. Cardiovascular: Normal rate and normal heart sounds. Pulmonary/Chest: Effort normal. No respiratory distress. He has decreased breath sounds. Abdominal: Soft. Musculoskeletal: General: Edema (1+ bilateral pitting) present. Lumbar back: He exhibits tenderness and spasm. Neurological: He is alert and oriented to person, place, and time. No cranial nerve deficit. Gait normal. Skin: Skin is warm and dry. He is not diaphoretic. Psychiatric: Mood and affect normal. Assessment/Plan: 1. Chronic obstructive pulmonary disease, unspecified COPD type Chronic stable, continue same therapy - Aclidinium [place] (TUDORZA PRESSAIR) 400 MCG/ACT Aerosol Powder, breath activated inhalation powder; Inhale 1 Units 2 times daily. Dispense: 3 Each; Refill: 1 - budesonide-formoterol (SYMBICORT) 160-4.5 mcg/puff Aerosol inhaler; Inhale 2 puffs 2 times daily.Dispense: 3 Inhaler; Refill: 1 - montelukast (SINGULAIR) 10 MG Tab tablet; Take 1 tablet by mouth daily. Dispense: 90 tablet; Refill: 1 - [place] NONINVASV OXYGEN SATUR; SINGLE 2. Major depressive disorder, recurrent, in full remission Chronic stable, continue same therapy - fluoxetine 40 MG Cap; Take 1 capsule by mouth daily. Dispense: 90 capsule; Refill: 1 3. Localized edema Chronic stable, continue same therapy - furOSEmide 20 MG Tab tablet; Take 1 tablet by mouth 2 times daily. Dispense: 180 tablet; Refill: 1 - potassium chloride SA (KLOR-CON M10) 10 MEQ Tab CR; Take 1 tablet by mouth 2 times daily. Dispense: 180 tablet; Refill: 1 4. Mixed hyperlipidemia Chronic stable, continue same therapy - simvastatin 20 MG Tab tablet; Take 1 tablet by mouth every evening at 6 PM. Dispense: 90 tablet; Refill: 1 - HEPATIC FUNCTION PANEL; Future - LIPID PANEL W CALCULATED LDL; Future 5. IFG (impaired fasting glucose) Advised diet changes, exercise and weight loss 6. Atypical lymphocytosis Will repeat CBC, if persist will refer to hematology - CBC, EDIF, PLATELET; Future 7. BMI 40.0-44.9, adult Advised diet changes, exercise and weight loss 8. Special screening for malignant neoplasm of prostate Will need labs prior to next visit - PSA, SCREENING; Future Orders and follow up as documented in patient record; We reviewed diet, exercise and weight control; Repeat labs were ordered and patient was advised to get prior to next appointment; Patient was advised to call with any questions or concerns. If symptoms worsen patient was advised to follow up in our office or the Emergency Dept. Benefits, Risks, Contraindications, and Complications of recommended treatments were explained the patient understands and agrees to proceed with plan. Rob Burns MD 02/03/2019 * Anna Grady LPN - 02/03/2019 8:45 AM EST Nurse Note: Review of Systems Constitutional: Negative for fatigue and fever. HENT: Negative for congestion, ear pain and sore throat. Eyes: Negative for pain and redness. Respiratory: Negative for cough and shortness of breath. Cardiovascular: Negative for chest pain and palpitations. Gastrointestinal: Negative for abdominal pain, constipation, diarrhea, nausea and vomiting. Genitourinary: Negative for difficulty urinating and dysuria. Musculoskeletal: Negative for arthralgias and myalgias. Skin: Negative for rash and wound. Neurological: Negative for dizziness and headaches. All other systems reviewed and are negative. documented in this encounter* Rob Burns MD - 08/23/2018 10:45 AM EDT Chief Complaint Patient presents with Results labs Chronic Obstructive Pulmonary Disease Anxiety Depression Hyperlipidemia Edema Obstructive Sleep Apnea uses CPAP machine and is tolerating. HPI: Regarding Hyperlipidemia: Rainer comes in today to follow up on chronic hyperlipidemia. This condition has been under good control. Pt reports that he has been compliant with his medications. Pt denies side effects from medication including myalgias, weakness or joint pain. Alleviating factors include: simvastatin Exacerbating factors include: poor diet, lack of exercise Other significant medical conditions include: see problem list Lab Results Component Value Date CHOLESTEROL 168 08/08/2018 TRIG 112 08/08/2018 HDL 43 08/08/2018 LDLCALC 103 (H) 08/08/2018 Lab Results Component Value Date ALT 20 08/08/2018 AST 19 08/08/2018 ALKPHOS 69 08/08/2018 BILITOTAL 0.7 08/08/2018 BILIDIRECT 0.1 08/08/2018 His hyperlipidemia severity is mild due to the above factors. Regarding Anxiety/Depression: Rainer presents with the complaint of anxiety/depression which is currently under suboptimal control. He reports the following triggers: stress, dealing with a teen with mental issues Other symptoms include: increased stress, has been taking Buspar, not helping, only took it for 3 days Current treatment includes: fluoxetine, Buspar Significant medical conditions: see problem list In Regards to COPD: Rainer Soriano presents in follow up for COPD, which is chronic and stable. Control is at baseline. No increase in rescue use. No increase in cough, sputum, SOB. Compliance with medication is good.No medication side effects. he denies fever, chills, headache, sore throat, chest pain, palpitations, nausea, vomiting, diarrhea, dysuria, frequency, hematuria. In regards to edema: Rainer presents with the complaint of edema: Location: mid-tibia Onset: years ago Frequency: daily Significant PMH: morbid obesity Significant medications: furosemide Triggers/exacerbating factors: weight, sedentary lifestyle Alleviating factors: diuretics and support stockings Other: Leg Swelling , denies chest pain, SOB, orthopnea, has occasional palpitations he associates it with dehydration. In Regards to GERD: Rainer Soriano is a 62 y.o. male who presents in follow up for GERD/gastritis. Symptoms are undergood control. There are no side effects noted from the medication. he denies water brash, bitter or metallic taste, dysphagia, nausea, vomiting, hematemesis, melena, or black/tarry stools. He takes the medication on a daily basis and has recurrence of symptoms when reducing frequency of medication usage. ROS: Nurse Note: Review of Systems Constitutional: Negative for fatigue and fever. HENT: Negative for congestion, ear pain and sore throat. Eyes: Negative for pain and visual disturbance. Respiratory: Negative for cough and shortness of breath. Cardiovascular: Negative for chest pain and palpitations. Gastrointestinal: Negative for abdominal pain, constipation, diarrhea and nausea. Genitourinary: Negative for difficulty urinating and dysuria. Musculoskeletal: Negative for arthralgias and myalgias. Skin: Negative for rash and wound. Neurological: Negative for dizziness and headaches. All other systems reviewed and are negative. Nursing Assessment: Physical Exam Physical Exam: Blood pressure 114/64, pulse 72, height 1.778 m (5' 10 ), weight (!) 136.1 kg (300 lb 1.6 oz), SnM856 %. Body mass index is 43.06 kg/m . Physical Exam Constitutional: He is oriented to person, place, and time. No distress. HENT: Head: Normocephalic and atraumatic. Eyes: Pupils are equal, round, and reactive to light. Conjunctivae are normal. Neck: Normal range of motion. Neck supple. Cardiovascular: Normal rate and normal heart sounds. Pulmonary/Chest: Effort normal. No respiratory distress. He has decreased breath sounds. Abdominal: Soft. Musculoskeletal: He exhibits edema (1+ bilateral pitting). Lumbar back: He exhibits tenderness and spasm. Neurological: He is alert and oriented to person, place, and time. No cranial nerve deficit. Gait normal. Skin: Skin is warm and dry. He is not diaphoretic. Psychiatric: Mood and affect normal. Assessment/Plan: 1. Chronic obstructive pulmonary disease, unspecified COPD type Encouraged weight loss to improve breathing - Aclidinium [place] (TUDORZA PRESSAIR) 400 MCG/ACT Aerosol Powder, breath activated inhalation powder; Inhale 1 Units 2 times daily. Dispense: 3 Each; Refill: 1 - albuterol (2.5 MG/3ML) 0.083% inhalation solution; Take 3 mL by nebulization every 4 hours as needed. Every 4-6 hours Dispense: 100 vial; Refill: 3 - budesonide-formoterol (SYMBICORT) 160-4.5 mcg/puff Aerosol inhaler; Inhale 2 puffs 2 times daily.Dispense: 3 Inhaler; Refill: 1 - montelukast (SINGULAIR) 10 MG Tab tablet; Take 1 tablet by mouth daily. Dispense: 90 tablet; Refill: 1 - [place] NONINVASV OXYGEN SATUR; SINGLE - CBC, EDIF, PLATELET; Future 2. Anxiety disorder, unspecified type Chronic stable, continue same therapy 3. Major depressive disorder, recurrent, in full remission Chronic stable, continue same therapy - fluoxetine 40 MG Cap; Take 1 capsule by mouth daily. Dispense: 90 capsule; Refill: 1 4. Localized edema Chronic stable, continue same therapy - furOSEmide 20 MG Tab tablet; Take 1 tablet by mouth 2 times daily. Dispense: 180 tablet; Refill: 1 - potassium chloride SA (KLOR-CON M10) 10 MEQ Tab CR; Take 1 tablet by mouth 2 times daily. Dispense: 180 tablet; Refill: 1 5. Mixed hyperlipidemia Chronic stable, continue same therapy - simvastatin 20 MG Tab tablet; Take 1 tablet by mouth every evening at 6 PM. Dispense: 90 tablet; Refill: 1 - COMPREHENSIVE METABOLIC PANEL; Future - LIPID PANEL W CALCULATED LDL; Future 6. Vitamin D deficiency, unspecified Continue supplement 7. IFG (impaired fasting glucose) Advised diet changes, exercise and weight loss - COMPREHENSIVE METABOLIC PANEL; Future - HEMOGLOBIN A1C; Future 8. Obstructive sleep apnea syndrome Chronic stable, continue same therapy Orders and follow up as documented in patient record; We reviewed diet, exercise and weight control; Repeat labs were ordered and patient was advised to get prior to next appointment; Patient was advised to call with any questions or concerns. If symptoms worsen patient was advised to follow up in our office or the Emergency Dept. Benefits, Risks, Contraindications, and Complications of recommended treatments were explained the patient understands and agrees to proceed with plan. Rob Burns MD 08/23/2018 * Gilberto Bragg - 08/23/2018 10:45 AM EDT Nurse Note: Review of Systems Constitutional: Negative for fatigue and fever. HENT: Negative for congestion, ear pain and sore throat. Eyes: Negative for pain and visual disturbance. Respiratory: Negative for cough and shortness of breath. Cardiovascular: Negative for chest pain and palpitations. Gastrointestinal: Negative for abdominal pain, constipation, diarrhea and nausea. Genitourinary: Negative for difficulty urinating and dysuria. Musculoskeletal: Negative for arthralgias and myalgias. Skin: Negative for rash and wound. Neurological: Negative for dizziness and headaches. All other systems reviewed and are negative. Nursing Assessment: Physical Exam documented in this encounter Reason for Referral Status Reason Specialty Diagnoses / Procedures Referred By Contact Referred To Contact Closed Pulmonary Disease Diagnoses Chronic obstructive pulmonary disease, unspecified COPD type Obstructive sleep apnea syndrome Rob Burns MD [address] [place] [address] Arnold Burgos MD [address] [place] [id number] Status Reason Specialty Diagnoses / Procedures Referred By Contact Referred To Contact New Request Diagnoses EDMAR (obstructive sleep apnea) Morbid obesity due to excess calories Chronic obstructive pulmonary disease, unspecified COPD type Procedures SLEEP STUDY - TITRATION Arnold Burgos MD [address] [address] Status Reason Specialty Diagnoses / Procedures Referred By Contact Referred To Contact New Request Diagnoses EDMAR (obstructive sleep apnea) Morbid obesity due to excess calories Chronic obstructive pulmonary disease, unspecified COPD type Procedures SLEEP STUDY - DIAGNOSTIC Arnold Burgos MD [address] [address] Specialty Diagnoses / Procedures Referred By Contac t Referred To Contact Diagnoses Chronic obstructive pulmonary disease, unspecified COPD type Rob Burns MD [address] [place] [phone] Referral ID Status Reason Start Date Expiration Date Visits Re quested Visits Authorized [id number] Closed 1 1 Specialty Diagnoses / Procedures Referred By Contac t Referred To Contact Cardiology Diagnoses Encounter for screening for cardiovascular disorders Procedures Abdominal aorta anuerysm (AAA) screening [address] [address] Referral ID Status Reason Start Date Expiration Date Visits Requested Visits Authorized [id number] Authorized Perform Procedure 12/16/2022 12/16/2023 1 1 Specialty Diagnoses / Procedures Referred By Contac t Referred To Contact Diagnoses Encounter for other preprocedural examination Procedures ECG 12 lead Fozia Knapp, BATTERY STARTER-BELT LACER [address] [place] [address] Referral ID Status Reason Start Date Expiration Date V isits Requested Visits Authorized [id number] Pending Review 02/24/2023 02/24/2024 1 1 Instructions * Patient Instructions* Emily Erickson, NICA - 09/09/2018 4:00 PM EDT Preoperative Medication Instructions In preparation for surgery please continue all of your current medications with the following changes: Rainer Soriano Home Medication Instructions Prior to Surgery GUSTAVO:[id number] Printed on:09/09/18 1628 Medication Information Take last dose on Take the morning of surgery Comment(s) aclidinium bromide 400 mcg/actuation AePB Inhale 1 Units. yes albuterol (PROVENTIL) 2.5 mg /3 mL (0.083 %) nebulizer solution Inhale 2.5 mg every 4 (four) hours as needed . yes budesonide-formoterol (SYMBICORT) 160-4.5 mcg/actuation inhaler Inhale 2 puffs. yes cholecalciferol, vitamin D3, 400 unit Tab Take 5,000 Units by mouth daily . FLUoxetine (PROZAC) 20 MG capsule Take 20 mg by mouth. furosemide (LASIX) 20 MG tablet Take 20 mg by mouth. montelukast (SINGULAIR) 10 mg tablet Take 10 mg by mouth. omeprazole (PRILOSEC) 20 MG capsule Take 20 mg by mouth. yes potassium chloride SA (K-DUR,KLOR-CON) 10 MEQ tablet Take 10 mEq by mouth. simvastatin (ZOCOR) 20 MG tablet Take 20 mg by mouth. STOP ( medications that contain aspirin, such as Rebecca Bushnell, Pepto-Bismol, Anacin), antiinflammatory medications such as Advil, Motrin, Ibuprofen, Naproxen, Aleve, Rebecca Bushnell, Pepto-Bismol, Anacin, Diclofenac, Voltaren, Daypro, Etodolac, Ketoprofen, Piroxicam, Relafen, Nabumetone, etc. Also disc ontinue Vitamin C, Vitamin E, [place]-3 Fatty Acid, Fish Oil or Lovaza, and all herbal medications ASDIRECTED BY SURGEON. Tylenol (acetaminophen) is acceptable(unless you have an allergy to this medication ), but be careful to follow the label directions and do not use with other pain medications. On the morning of surgery, with as little water as possible, ONLY take the medications listed abovein the column Take the morning of surgery. If you are using Eye Drops or Inhalers, please bring them to the hospital. Patient Instructions for [facility]: Prior to surgery: Surgeon's office will contact you with the scheduled time of your surgery. You may use the Se[employer] Observer parking available at the Main Entrance One family member may accompany you back into the Pre-Op Area. Do not eat or drink anything after midnight or as directed, including gum, mints, and cough drops. No smoking after midnight. No alcohol 24 hours prior to your surgery. Please take any medications you have been instructed to take the morning of your surgery with smallsips of water. Please be sure to wear comfortable, appropriate clothing. Please remove all jewelry and piercing's, including wedding rings. Leave all valuable items at home. Shower using anti-bacterial soap or as advised by your Surgeon's office Do not apply any makeup or lotions. Remove all nail vietnamese for surgeries involving extremities. Please remember to bring both your insurance card and a photo ID with you on the day of surgery. After your surgery: If you are having outpatient surgery - you must have a licensed jukebox route driver to take you home. The expectation is that this jukebox route driver will remain at the hospital for the duration of your procedure. You are advised to have a family member with you for at least 24 hours after being under Anesthesia. If you have sleep apnea and have a CPAP/BIPAP device, please bring it with you the day of surgery. documented in this encounter Additional Source Comments (unrecognized sect ion and content) No Status Records FoundNo Status Records FoundNo Status Records FoundNo Status Records FoundNo Status Records FoundNo Status Records FoundNo Status Records FoundNo Status Records Found INFORMATION SOURCE (unrecogn ized section and content) DATE CREATED AUTHOR AUTHOR'S ORGANIZ ATION 02/12/2018 [facility] DATE CREATED AUTHOR AUTHOR'S ORGANIZ ATION [facility] DATE CREATED AUTHOR AUTHOR'S ORGANIZ ATION 10/07/2019 [facility] DATE CREATED AUTHOR AUTHOR'S ORGANIZ ATION 12/21/2020 [facility] DATE CREATED AUTHOR AUTHOR'S ORGANIZ ATION 01/08/2022 [facility] DATE CREATED AUTHOR AUTHOR'S ORGANIZ ATION 01/16/2023 [facility] DATE CREATED AUTHOR AUTHOR'S ORGANIZ ATION 01/18/2023 [facility] Reason for Visit (unrecogniz ed section and content) Reason Comments Results Chronic Obstructive Pulmonary Disease We ars 3LPM at night only with C-PAP Edema Depression Hyperlipidemia Status Reason Specialty Diagnoses / Procedures Referre d By Contact Referred To Contact Diagnoses Bladder neck obstruction Impotence of organic origin Bladder neck obstruction [N32.0] Impotence of organic origin [N52.9] Procedures REMOVAL AND REPLACEMENT OF PROSTHESIS PENILE INFLATABLE Reason Comments Results Chronic Obstructive Pulmonary Disease Hyperlipidemia Depression Edema Referral Patient would like t o discuss getting a new referral for a different Resaw Carriage Operator. Reason Comments Follow-up Chronic Obstructive Pulmonary Disease Obstructive Sleep Apnea Status Reason Specialty Diagnoses / Procedures Referred By Contact Referred To Contact Closed Pulmonary Disease Diagnoses Chronic obstructive pulmonary disease, unspecified COPD type Obstructive sleep apnea syndrome Rob Burns MD [address] [place] [address] Arnold Burgos MD [address] [place] [address] Reason Comments Daytime Sleepiness Status Reason Specialty Diagnoses / Procedures Referre d By Contact Referred To Contact Closed Diagnoses EDMAR (obstructive sleep apnea) Morbid obesity due to excess calories Chronic obstructive pulmonary disease, unspecified COPD type Procedures SLEEP STUDY - TITRATION Arnold Burgos MD [address] [facility] [address] [place] [address] Reason Comments Establish Care Obstructive Sleep Apnea Reason Comments Results Chronic Obstructive Pulmonary Disease Hyperlipidemia Esophageal Reflux Depression Obstructive Sleep Apnea Patient uses CPA P nightly and benefits from it. Reason Comments Sleep Problem Status Reason Specialty Diagnoses / Procedures Referre d By Contact Referred To Contact Closed Diagnoses EDMAR (obstructive sleep apnea) Morbid obesity due to excess calories Chronic obstructive pulmonary disease, unspecified COPD type Procedures SLEEP STUDY - DIAGNOSTIC Arnold Burgos MD [address] [facility] [address] [place] [address] Reason Comments Results Chronic Obstructive Pulmonary Disease Hyperlipidemia Edema Depression Reason Comments Results labs Chronic Obstructive Pulmonary Disease Anxiety Depression Hyperlipidemia Edema Obstructive Sleep Apnea uses CPAP kenny e and is tolerating. Reason Comments Results Chronic Obstructive Pulmonary Disease Esophageal Reflux Hyperlipidemia Vitamin D Deficiency Obstructive Sleep Apnea Depression Edema Reason Comments Follow-up Obstructive Sleep Apnea Reason Comments Results Hyperlipidemia Depression Chronic Obstructive Pulmonary Disease Edema Obstructive Sleep Apnea Wears Cpap and b enefiting from Specialty Diagnoses / Procedures Referred By Ria parks Referred To Contact Cardiology Diagnoses Encounter for screening for cardiovascular disorders Procedures Abdominal aorta anuerysm (AAA) screening [address] [address] Referral ID Status Reason Start Date Expiration Date Visits Requested Visits Authorized [id number] Authorized Perform Procedure 12/16/2022 12/16/2023 1 1 Specialty Diagnoses / Procedures Referred By Ria t Referred To Contact Diagnoses Encounter for other preprocedural examination Procedures ECG 12 lead Fozia Knapp, BATTERY STAR[employer]ACER [address] [place] [address] Referral ID Status Reason Start Date Expiration Date V isits Requested Visits Authorized [id number] Pending Review 02/24/2023 02/24/2024 1 1 Wilber Burr MD - 09/14/2018 7:37 AM Migdalia Box PA-C - 08/30/2018 11:22 AM EDT H&P Notes (unrecognized sect ion and content) INTERVAL HISTORY AND PHYSICAL Patient Name: Rainer Soriano Admit Date: [id number] MR #: [id number] : 1955 The H&P has been reviewed and the patient has been examined. I concur with the findings of the H&P. There are no significant changes. It is appropriate to proceed with the planned procedure. Wilber Burr MD 09/14/2018 7:37 AM Patient here for preoperative examination for removal and replacement of penile prosthesis inflatable device. He does have remote history of prostate cancer, Liliam 6, which was treated with radical prostatectomy and radiation to the prostate bed. Subsequently after his treatment patient had difficulties with erectile dysfunction and had penile prosthesis surgery in 2008. Recently it was noticed that the device has a leak in it and it is nonfunctioning rendering removal and replacement. Preoperative instruction has been reviewed withe patient. Will have him obtain CBC, BMP, and EKG prior to his procedure at his upcoming PST appointment. Postoperative instruction has also been reviewed with the patient. We will plan to see him about one week after his procedure. FU: post op 09-22-18 km Patient seen today for pre-operative evaluation. History and Physical Exam updated. Appropriate labs ordered for surgery. Urine obtained for UACS. . Consent electronically signed. Pre-Operative instructions given to patient. Surgery scheduled at [facility]. All questions answered. Post-operative appointment made. Does the Patient have a Latex Allergy? NO Does the Patient Have MRSA,VRE? NO Does the patient weigh over 300#? NO - 300# PMD: Dr. Bowie Allergies: VALIUM, SILK TAPE, NYQUIL History of Present Illness History from: patient Reason for visit: Pre Op Chief Complaint: Pre Op History of Present Illness: Pt here today for his pre op to have a penile prosthesis inflatible. Pt states that he is not having any problems when urinating. He denied having dysuria or hematuria. Pt also denied having to push or strain to empty his bladder. He denied having any pain or swelling in the penis and testicles. He has no other urological symptoms at this time. eh Review of Systems General: Denies fevers, chills, sweats, anorexia, fatigue, malaise, weight loss. Eyes: Denies blurring, diplopia, irritation, discharge, vision loss, eye pain, photophobia. Ears/Nose/Throat: Denies earache, ear discharge, tinnitus, decreased hearing, nasal congestion, nosebleeds, sore throat, hoarseness, dysphagia. Cardiovascular: Denies chest pains, palpitations, syncope, dyspnea on exertion, orthopnea, PND, peripheral edema. Respiratory: Denies cough, dyspnea, excessive sputum, hemoptysis, wheezing. Gastrointestinal: Denies nausea, vomiting, diarrhea, constipation, change in bowel habits, abdominal pain, melena, hematochezia, jaundice. Genitourinary: Complains of impotence. Denies dysuria, hematuria, discharge, urinary frequency, urinary hesitancy, nocturia, incontinence, genital sores, decreased libido. Musculoskeletal: Denies back pain, joint pain, joint swelling, muscle cramps, muscle weakness, stiffness, arthritis. Skin: Denies rash, itching, dryness, suspicious lesions. Neurologic: Denies transient paralysis, weakness, paresthesias, seizures, syncope, tremors, vertigo. Psychiatric: Denies depression, anxiety, memory loss, mental disturbance, suicidal ideation, hallucinations, paranoia. Endocrine: Denies cold intolerance, heat intolerance, polydipsia, polyphagia, polyuria, weight change. Heme/Lymphatic: Denies abnormal bruising, bleeding, enlarged lymph nodes. Allergic/Immunologic: Denies urticaria, hay fever, persistent infections, HIV exposure. Family History Summary: Reviewed history Last on 10/08/2017 and no changes required:08/30/2018 Father (biol.) - Has Family History of Other Cancer - Entered On: 10/08/2015 Mother (biol.) - Has Family History of Heart Disease - Entered On: 10/08/2015 Sister (full) - Has Family History of Other Cancer - Entered On: 10/08/2015 General Comments - FH: cancer- father, sister heart disease-mother Social History: Reviewed history from 10/08/2016 and no changes required: This is a male Passive smoke exposure - no Alcohol Use - no Drug Use - no HIV/High Risk - no Regular Exercise - no Smoking History: Quit 2006 Smoking History: Patient is a former smoker. No Counseling Performed Reason - yes Past Medical History: Reviewed history from 10/08/2016 and no changes required: PAST UROLOGIC HISTORY:Significant for prostate cancer hematuria PAST MEDICAL HISTORY: Heart cath MOH 10/2006 Normal Stress test 10/07/2006 COPD Past Surgical History: Reviewed history from 10/08/2016 and no changes required: PAST SURGICAL HISTORY: Significant for ACL replaced left knee, pneumonia '07, ear tubes, adenoids removed, radical prostatectomy 01-24-07, penile implant Risk Factors: Smoked Tobacco Use: Former smoker Cigarettes: Yes -- 1/2 pack(s) per day, Pack-years: 25-30 years 1 pack daily Year quit: 2007 Years Since Last Quit: 11 Smokeless Tobacco Use: Never No Counseling Performed Reason: yes Passive smoke exposure: no Drug use: no HIV high-risk behavior: no Caffeine use: 2 drinks per day Alcohol use: no Exercise: no Seatbelt use: 100 % Sun Exposure: occasionally Medications Reviewed: Done Last Flu Vax: 10/26/2016 Smoking Status: Former smoker Oral Tobacco Use: Never There is a medical reason for no tobacco use counseling. Patient at risk for falls: no Physical Exam Appearance: well developed, well nourished, no acute distress Neck Neck: supple, no masses, trachea midline Thyroid: no nodules, masses, tenderness, or enlargement Respiratory Respiratory effort: no intercostal retractions or use of accessory muscles Auscultation: no rales, rhonchi, or wheezes Cardiovascular Auscultation: S1, S2, no murmur, rub, or gallop Periph. circulation: no cyanosis, clubbing, edema, or varicosities Gastrointestinal Abdomen: soft, non-tender, no masses, bowel sounds normal Liver and spleen: no enlargement or nodularity Hernia: no hernias Lymphatic Nodes: no cervical, axillary, or inguinal adenopathy Skin Inspection/palpation: no ulcers, xanthomas Mental Status Exam Orientation: oriented to time, place, and person Mood and affect: no depression, anxiety, or agitation Vital Signs Ht: 70 in. Wt: 300 lbs. P: 71 Rhythm: regular R: 18 BP: 122/78 BP Position Sitting Plan Updated Medication List: FLUOXETINE HCL 40 MG ORAL CAPSULE (FLUOXETINE HCL) TAKE 1 CAPSULE BY MOUTH ONCE DAILY OMEPRAZOLE 40 MG ORAL CAPSULE DELAYED RELEASE (OMEPRAZOLE) daily SYMBICORT 160-4.5 MCG/ACT INHALATION AEROSOL (BUDESONIDE-FORMOTEROL FUMARATE) TUDORZA PRESSAIR 400 MCG/ACT INHALATION AEROSOL POWDER BREATH ACTIVATED (ACLIDINIUM BROMIDE) FUROSEMIDE 20 MG ORAL TABLET (FUROSEMIDE) ZOCOR 20 MG ORAL TABLET (SIMVASTATIN) SINGULAIR 10 MG ORAL TABLET (MONTELUKAST SODIUM) New Orders: [id number] OFC.VISIT,EXTENDED [[id number]] Medical Decision-Making Amount/complexity of data to be reviewed * review/order clinical lab tests * review/order other diagnostic or tx interventions * review and summarization of old records Risk of complications: moderate First appointment Second appointment Third Appointment . documented in this encounter Plan of Care - Kitty Ni RN - 09/15/2018 1:51 PM EDTPlan of Care - Carlton Vega RN - 09/15/2018 5:48 AM EDTQuick Note - Aubrie Montana RN - 09/14/2018 1:34 PM EDT Miscellaneous Notes (unrecog nized section and content) Plan of care reviewed and updated POC updated. Pt received 2 doses prn roxicodone during this shift, pain 7/10 to scrotal area. Pt up to walk 1x with this Rn, SOB on exertion but tolerated well with use of walker. RT staff here at [facility] placing patient on CPAP per Dr. Mittal. Called RT to place patient on CPAP per order after talked with Dr. Gordon about patient. RT staff here at [facility] for breathing treatment as ordered Dr. Burr here at [facility] to talk with patient about surgery. PATIENT NAME: Rainer Soriano : 1955 ADMITTED: [id number] CSN: [id number] DATE. September 14, 2018 PRE-OPERATIVE DIAGNOSIS. Organic impotence POST-OPERATIVE DIAGNOSIS. Same SURGERY removal of malfunctioning multicomponent inflatable penile implant replacement semirigid penile implant. COMPLICATIONS None, patient tolerated the procedure well DISPOSITION Admitted for observation CONDITION Stable WILBER BURR MD documented in this encounter OR PreOp - Emily Erickson CNP - 09/09/2018 4:00 PM EDT OR Notes (unrecognized secti on and content) ANESTHESIA PREPROCEDURE EVALUATION Physical Exam Airway Mallampati: III Neck ROM: full Mouth opening: >[address]: no Cardiovascular - normal Rhythm: regular Pulmonary Positive: decreased breath sounds Neurological - normal Mental Status: alert Dental poor dentition Review of Systems / Medical History - No history of anesthetic complications Pulmonary Positive: COPD sleep apnea Neurological / Psychological Positive: depression, anxiety Cardiovascular Exercise tolerance: good Comment: Pt denies chest pain with activity, but does admit to slight SOB. Pt states this is not an unusual issue. Mets greater than 4. Positive: hyperlipidemia Gastrointestinal / Hepatic / Renal - negative Endocrine / Musculoskeletal - negative Other Positive: cancer (h/o prostate cancer) documented in this encounter Care Teams (unrecognized sec tion and content) Furnace Attendant Relationship Specialty Start Date End Date Fozia Knapp APRN-CNP [address] [place] [address] PCP - General Family Medicine 12/16/22 Furnace Attendant Relationship Specialty Start Date End Date Fozia Knapp APRN-CNP [address] [place] [address] PCP - General Family Medicine 11/1/23 FOR RECORDS PERTAINING TO PATIENTS WHO ARE OR HAVE BEEN ENROLLED IN A CHEMICAL DEPENDENCY/SUBSTANCEABUSE PROGRAM, SOME INFORMATION MAY BE OMITTED. This clinical summary was aggregated from multiple sources. Caution should be exercised in using it in the provision of clinical care. This summary normalizes information from multiple sources, and as a consequence, information in this document may materially change the coding, format and clinical context of patient data. In addition, data may be omitted in some cases. CLINICAL DECISIONS SHOULD BE BASED ON THE PRIMARY CLINICAL RECORDS. [facility]. provides no warranty or guarantee of the accuracy or completeness of information in this document.
--- NOTE | 2023-02-25 07:58 | CT_ITS ---
CT LEFT LOWER EXTREMITY WITH 3-D IMAGING CLINICAL INDICATION: templating for left LIZ TECHNIQUE: Axial CT images of the LEFT lower extremity was performed without IV contrast material. Coronal and sagittal reformats were provided. RADIATION DOSAGE (If Supplied By Facility): CTDIvol = ( 14.07 ) mGy, DLP = ( 830.36 ) mGycm COMPARISON: Prior study dated: Comparison is made with prior examination dated February 17, 2023. FINDINGS: Bones: Marked degree of joint space narrowing of the left hip joint with a subchondral cyst in the femoral head and deformity of the femoral head suggestive of avascular necrosis. Imaging of both knee joints was obtained. There is evidence of prior anterior cruciate ligament repair of the left knee joint. Moderate degree of bilateral medial joint space narrowing. Soft Tissues: The deep soft tissue structures are unremarkable. The superficial soft tissues are unremarkable without evidence of edema, hematoma, or foreign body. CT/Extremity Lower without Contra IMPRESSION: Marked degree of degenerative changes of the left hip joint with the findings suggestive of avascular necrosis. Electronically Signed: Shayne Goldsmith MD at 8:57 EST ,
== END | disposition home or self-care (01) ==
PROVIDERS: PCP Nurse Practitioner Primary Care; Referring Provider Orthopaedic Surgery Sports Medicine; Visit Provider Orthopaedic Surgery Sports Medicine
DX: M87.052 Idiopathic aseptic necrosis of left femur (principal)
CPT/HCPCS: 73700

== ENCOUNTER 2023-03-23 11:08 | Observation (INO) | payer MEDICARE, SELFPAY ==
[2023-03-12 15:18] LABS: Magnesium 2.7 mg/dL (1.6-2.6)
[2023-03-12 15:26] LABS: Partial Thromboplast Time 31.8 Seconds (24.1-36.2)
[2023-03-12 16:13] LABS: Hemoglobin A1c 5.7 % (3.8-5.6)
[2023-03-14 10:07] LABS: Fructosamine 214 umol/L (0-285)
[2023-03-23] VITALS (17 sets, daily range): BP systolic 102–147; BP diastolic 58–83; PULSE 64–89; RESP 14–20; TEMP 36.1–37; O2SAT 87–95; BMI 43.7
--- OUTSIDE RECORDS SUMMARY | 2023-03-23 05:31 | XMS RPT_ITS | CCD ---
Author Name Unknown Address [address] [place] [address] Organization [facility] Care Team Providers Care Mooner Name Role Phone Rob Burns Unavailable Unavailable Unavailable Unavailable NewNarendra watersel Unavailable Unavailable Newbill, Narendra Fernando Unavailable Unavailable Burns, Rob M Unavailable Unavailable Burns, Rob M Unavailable Unavailable Ivanauskas, Saulius Unavailable Unavailable Ivanauskas, Saulius Unavailable Unavailable Burns, Rob M Unavailable Unavailable Gilbert, Joel Unavailable Unavailable Gilbert, Joel Unavailable Unavailable BurnsBrook harrisissa M Unavailable Rob Burns Primary Care Provider Unavaila ble Rob Burns Primary Care Provider Rob Burns Primary Care Provider GARDILCIC, STJEPAN Admitting Unavailable GARDILCIC, STJEPAN Attending Unavailable ROB BURNS Primary Care Unavailabl e GARDILCIC, STJEPAN Admitting Unavailable ROB BURNS Primary Care Unavailabl e Rob Burns Primary Care Provider Rob Burns MD Primary Care Provider Rob Bruns MD Primary Care Provider FOZIA KNAPP Referring Unavailable STONEFOZIA REBECA Attending Unavailable STONE, FOZIA REBECA Primary Care Unavailable Stone KNITTING MACHINE FIXER-CIPHER EXPERT, Fozia Rebeca Primary Care Provide r STONE FOZIA REBECA Primary Care Unavailable HERRERA KESSLER Attending Unavail able FOZIA KNAPP Primary Care Unavailable FOZIA KNAPP Primary Care Unavailable Allergies Allergy Classification Reported Allergen(s) Allergy Type Date of Onset Reaction(s) Facility MITE EXTRACT (2 sources) MITE EXTRACT Drug Allergy [facility] (7 sources) new zealander house dust mite extract / house dust mite extract; Translations: [ALLERG XT,D.FARINAE-D.PTER ONYS] Propensity to adverse reactions to drug [facility] Work Phone: (5 sources) diazePAM Propensity to adverse reactions to drug 08-28-19 10 [facility] Work Phone: (8 sources) NYQUIL; Translations: [Unknown] Propensity to adverse reactions to drug 09-29-19 17 Rash [facility] Work Phone: (2 sources) Dextromethorphan / Doxylamine; Translations: [NyQuil Cough] Drug Allergy [facility] Repository (2 sources) diazePAM; Translations: [Valium] Drug Allergy [facility] Repository (1 source) Silk adhesive tape; Translations: [Silk tape] Propensity to adverse reactions to drug (disorder) [facility] Repository (13 sources) MITE EXTRACT Drug Allergy [facility] Work Phone: (15 sources) PHENYLEPH-DOXYLAMIN E-DM-APAP Propensity to adverse reactions to drug Hives, Headache [facility] Work Phone: (15 sources) *SEASONAL Propensity to adverse reactions to substance [facility] Work Phone: (1 source) ALLERGIES NOT ON FILE; Translations: [ALLERGIES NOT ON FILE] Propensity to adverse reactions (disorder) [facility] 2 Repository Medications Current Medications Medication Drug [...] 1 [IU] by inhalation twice daily Aclidinium Paducah (Tudorza Pressair) 400 MCG/ACT Aerosol Powder, breath [...] 10 mg, Rectal, Daily, First dose on Radha 09/15/18 at 0900 [] until flatus or BM, [...] 78 mm[Hg] Rob Burns MD Work Phone: [facility] 12-20-2020 08:33-0400 Systolic blood pressure 142 mm[Hg] Rob Burns MD Work Phone: [facility] 12-20-2020 08:11-0400 Body height 177.8 cm Rob Burns MD Work Phone: [facility] 12-20-2020 08:11-0400 Body mass index (BMI) [Ratio] 41.63 kg/m2 Rob Burns MD Work Phone: [facility] 12-20-2020 08:11-0400 Body weight 131.59 kg Rob Burns MD Work Phone: [facility] 12-20-2020 08:11-0400 Heart rate 68 /min Rob Burns MD Work Phone: [facility] 12-20-2020 08:11-0400 SaO2% (BldA) [Mass fraction] 91 % Rob Burns MD Work Phone: [facility] 07-05-2020 09:07-0400 Body height 177.8 cm Heather Rona KNITTING MACHINE FIXER-CIPHER EXPERT Work Phone: [facility] 07-05-2020 09:07-0400 Body mass index (BMI) [Ratio] 44.54 kg/m2 Heather Rona KNITTING MACHINE FIXER-CIPHER EXPERT Work Phone: [facility] 07-05-2020 09:07-0400 Body weight 140.8 kg Heather Rona KNITTING MACHINE FIXER-CIPHER EXPERT Work Phone: [facility] 07-05-2020 09:07-0400 Diastolic blood pressure 80 mm[Hg] Heather Rona KNITTING MACHINE FIXER-CIPHER EXPERT Work Phone: [facility] 07-05-2020 09:07-0400 Heart rate 84 /min Heather Rona KNITTING MACHINE FIXER-CIPHER EXPERT Work Phone: [facility] 07-05-2020 09:07-0400 Respiratory rate 16 /min Heather Rona KNITTING MACHINE FIXER-CIPHER EXPERT Work Phone: [facility] 07-05-2020 09:07-0400 SaO2% (BldA) [Mass fraction] 92 % Heather Rona KNITTING MACHINE FIXER-CIPHER EXPERT Work Phone: [facility] 07-05-2020 09:07-0400 Systolic blood pressure 130 mm[Hg] Heather Rona KNITTING MACHINE FIXER-CIPHER EXPERT Work Phone: [facility] 06-25-2020 08:05-0400 Body mass index (BMI) [Ratio] 44.29 kg/m2 Rob Burns MD Work Phone: [facility] 06-25-2020 08:05-0400 Body weight 140.03 kg Rob Burns MD Work Phone: [facility] 06-25-2020 08:05-0400 Diastolic blood pressure 82 mm[Hg] Rob Burns MD Work Phone: [facility] 06-25-2020 08:05-0400 Heart rate 79 /min Rob Burns MD Work Phone: [facility] 06-25-2020 08:05-0400 SaO2% (BldA) [Mass fraction] 92 % Rob Burns MD Work Phone: [facility] 06-25-2020 08:05-0400 Systolic blood pressure 141 mm[Hg] Rob Burns MD Work Phone: [facility] 01-01-2020 09:13-0500 BMI (Body Mass Index) 43.16 kg/m2 Rob Burns [facility] 01-01-2020 09:13-0500 Body weight 136.44 kg [facility] 01-01-2020 09:13-0500 BP Diastolic 77 mm[Hg] [facility] 01-01-2020 09:13-0500 BP Systolic 134 mm[Hg] [facility] 01-01-2020 09:13-0500 Height 177.8 cm [facility] 01-01-2020 09:13-0500 Pulse (Heart Rate) 72 /min [facility] 01-01-2020 09:13-0500 Pulse Oximetry 90 % [facility] 12-22-2019 08:54-0500 BMI (Body Mass Index) 43.28 kg/m2 [facility] 12-22-2019 08:54-0500 Body weight 136.81 kg [facility] 12-22-2019 08:54-0500 BP Diastolic 78 mm[Hg] [facility] 12-22-2019 08:54-0500 BP Systolic 114 mm[Hg] [facility] 12-22-2019 08:54-0500 Height 177.8 cm [facility] 12-22-2019 08:54-0500 Pulse (Heart Rate) 78 /min [facility] 12-22-2019 08:54-0500 Pulse Oximetry 95 % [facility] 12-22-2019 08:54-0500 Respiratory Rate 22 /min [facility] 09-07-2019 08:28-0400 BMI (Body Mass Index) 41.87 kg/m2 [facility] 09-07-2019 08:28-0400 Body weight 132.36 kg [facility] 09-07-2019 08:28-0400 BP Diastolic 70 mm[Hg] [facility] 09-07-2019 08:28-0400 BP Systolic 140 mm[Hg] [facility] 09-07-2019 08:28-0400 Height 177.8 cm [facility] 09-07-2019 08:28-0400 Pulse (Heart Rate) 78 /min [facility] 09-07-2019 08:28-0400 Pulse Oximetry 93 % [facility] Encounters Encounter Date Encounter Type Care Provider Facility Start: 02-24-2023 End: 02-25-2023 ambulatory FOZIA KNAPP [facility] Start: 02-24-2023 End: 02-25-2023 Encounter for other preprocedural examination FOZIA KNAPP [facility] Start: 02-24-2023 End: 02-24-2023 Patient encounter status [facility] Work Phone: Start: 02-24-2023 End: 02-24-2023 Subsequent hospital visit by physician Kailash Campos Nonv1 [facility] Procedures Date Procedure Procedure Detail Performing Clinician Start: 02-24-2023 ECG 12-LEAD FOZIA COSTELLOShannan Seymour Start: 02-24-2023 Ecg routine ecg w/le ast 12 lds trcg only w/o i&r Fozia Knapp KNITTING MACHINE FIXER-CIPHER EXPERT Work Phone: Start: 12-22-2022 VASC US ABDOMINAL AO RTA ANEURYSM AAA SCREENING FOZIA KNAPP Start: 12-22-2022 Us abdominal aorta r eal time screen study aaa Fozia Knapp KNITTING MACHINE FIXER-CIPHER EXPERT Work Phone: Start: 12-02-2020 Lipid 1996 panel [...] panel - Blood by Automated count [facility] Work Phone: Start: 09-15-2018 Basic metabolic 2000 panel - Serum or Plasma [facility] Work Phone: Start: 09-14-2018 Procedure on tissue specimen [facility] Work Phone: Start: 09-14-2018 End: 09-14-2018 INSERTION [...] Start: 12-02-2025 Fasting lipid profile LIPID SCREENING [facility] Start: 06-13-2025 Fasting lipid profile LIPID SCREENING [employer] [facility] Start: 12-21-2024 Fasting lipid profile LIPID SCREENING [facility] Start: 07-11-2024 Fasting lipid profile LIPID SCREENING [facility] Start: 01-24-2024 Fasting lipid profile LIPID SCREENING [facility] Start: 08-09-2023 Fasting lipid profile LIPID SCREENING [facility] Start: 04-27-2023 End: 04-27-2023 Patient encounter procedure 04/27/2023 8:00 AM EDT Appointment [facility] [address] [place] [address] [phone] Santiago Vazquez, DO [address] [facility] [address] [place] [address] [facility] Start: 03-26-2023 End: 03-26-2023 ambulatory 03/26/2023 11:30 AM EST Evaluation [facility] [address] [place] [id number] Pita Puckett, PT [address] [facility] [place] [id number] [facility] Start: 02-16-2023 Fasting lipid profile LIPID SCREENING [facility] Work Phone: Start: 09-28-2022 Colonoscopy COLONOSCOPY [facility] Start: 08-24-2022 Fasting lipid profile LIPID SCREENING [facility] Work Phone: Start: 12-02-2021 Potassium [Moles/volume] in Serum or Plasma POTASSIUM [facility] Start: 12-02-2021 Prostate specific antigen measurement PROSTATE CANCER SCREENING DISCUSSION [facility] Start: 07-03-2021 End: 07-03-2021 Patient encounter procedure [facility] Pulmonary Disease [facility] Start: 07-01-2021 DTaP/Tdap/Td Vaccines (1 - Tdap) DTaP/Tdap/Td Vaccines (1 - Tdap) [facility] Start: 06-25-2021 Prostate specific antigen measurement PROSTATE CANCER SCREENING DISCUSSION [facility] Start: 06-13-2021 End: 06-13-2021 Patient encounter procedure 06/13/2021 Office Visit Family Medicine Rob Burns MD [address] [place] [id number] [facility] Start: 05-19-2021 End: 09-16-2021 Hepatic function 2000 panel - Serum or Plasma HEPATIC FUNCTION PANEL Lab Routine Mixed hyperlipidemia Expected: 05/19/2021 (Approximate), Expires: 09/16/2021 [facility] Work Phone: Immunizations Immunization Date Immunization Notes Care Provider Kevin [facility] 12-20-2020 influenza, injectabl e, quadrivalent, preservative free Rob Burns MD Work Phone: [facility] 12-20-2020 influenza quad vacci ne 0.5 ML Suspension Prefilled Syringe Rob Burns MD Work Phone: [facility] 01-01-2020 influenza, injectabl e, quadrivalent, preservative free Rob Burns [facility] 01-01-2020 influenza quad vacci ne 0.5 ML Suspension Prefilled Syringe Rob Burns [facility] 12-14-2018 Seasonal, quadrivale nt, recombinant, injectable influenza vaccine, preservative free Rob Burns MD Work Phone: [facility] 12-14-2018 influenza virus vacc ine, unspecified formulation [facility] 11-17-2017 influenza virus vacc ine, whole virus [facility] Work Phone: 11-17-2017 influenza virus vacc ine, unspecified formulation [facility] 03-16-2017 pneumococcal polysaccharide vaccine, 23 valent; Translations: [PNEUMOCOCCAL POLYSAC 23-VALENT VACCINE] Provider [facility] Work Phone: 11-11-2016 influenza, injectabl e, quadrivalent, preservative free Rob Burns MD Work Phone: [facility] 11-11-2016 influenza virus vacc ine, unspecified formulation Provider [facility] Work Phone: 11-14-2013 influenza, injectabl e, quadrivalent, contains preservative Provider [facility] Work Phone: 11-14-2013 influenza, seasonal, injectable Rob Burns MD Work Phone: [facility] 10-24-2012 influenza, injectabl e, quadrivalent, contains preservative Provider [facility] Work Phone: 10-24-2012 influenza, seasonal, injectable Rob Burns MD Work Phone: [facility] 01-18-2012 influenza, injectabl e, quadrivalent, contains preservative Provider [facility] Work Phone: 12-30-1999 TD(adult) unspecifie d formulation Rob Burns [facility] Work Phone: Payers Date Payer Category Payer Medicare [facility] E MEDICARE [employer] MEDICARE [id number] 2022-Present [address] [place] [address] [id number] 2022 Medicare [id number] 2021 Unknown [id number] 2017 Unknown 2016 Unknown [id number] 2016 Unknown [id number] 2014 Unknown [id number] 2014 Unknown [id number] 2014 Unknown [id number] 1957 Unknown [id number] 1957 Unknown [id number] 1957 Unknown [id number] 1957 Unknown [id number] 1957 Unknown [id number] 1957 Unknown [id number] 1957 Unknown [id number] 1957 Unknown [id number] 1957 Unknown [id number] Social History Date Type Detail Facility Start: 10-26-2016 End: 07-05-2020 Tobacco smoking status AKIS Former smoker [facility] Work Phone: Start: 10-26-2016 End: 09-09-2018 Cigarettes smoked current (pack per day) - Reported [facility] Work Phone: Start: 1955 [facility] End: 09-27-2006 History of tobacco use Current smoker [facility] Work Phone: End: 09-27-2006 History of tobacco use Cigarette Smoker [facility] Work Phone: Start: 07-20-2019 End: 07-05-2020 Tobacco use and exposure Never used [facility] Start: 07-20-2019 End: 12-20-2020 Alcohol intake Current non-drinker of alcohol (finding) [facility] Start: 12-12-2022 End: 02-24-2023 Exposure to SARS-CoV-2 (event) Not sure [facility] Start: 09-22-2018 Tobacco use and exposure Former user [facility] Tobacco smoking stat [facility] Tobacco smoking consumption unknown [facility] Work Phone: Gender identity Not on file [facility] Work Phone: Medical Equipment Procedure Code Equipment Code Equipment Origin al Text Equipment Identifier Dates Kit Accessory 70 0 Ultrex Penile Prosthesis - [id number], [id number] FDA Start: 09-14-2018 History of Present illness Narrative 12-20-2020 Rob Burns MD - 12/20/2020 8:15 AM EDTErghazal Conroy - 12/20/2020 8:15 AM EDT Note Date & Type Note Facility 12-20-2020 History of Presen t illness Narrative Chief Complaint Patient presents with Results Hyperlipidemia Depression Chronic Obstructive Pulmonary Disease Edema Obstructive Sleep Apnea Wears Cpap and benefiting from HPI: Regarding Hyperlipidemia: Rubin comes in today to follow up on [...] due to the above factors. Regarding Anxiety/Depression: Rubin presents with the complaint of anxiety/depression which is currently under improved control. He reports the following triggers: stress, dealing with a teen with mental issues Other symptoms include: Current treatment includes: fluoxetine, Buspar Significant medical conditions: see problem list In Regards to COPD: Rubin Madrid presents in follow up for COPD, which [...] finds it beneficial In regards to edema: Rubin presents with the complaint of edema: Location: mid-tibia Onset: years ago Frequency: daily Significant PMH: morbid obesity Significant medications: furosemide Triggers/exacerbating factors: weight, sedentary lifestyle Alleviating factors: diuretics and support stockings Other: Leg Swelling , denies chest pain, SOB, orthopnea, has occasional palpitations he associates it with dehydration. In Regards to GERD: Rubin Madrid is a 65 y.o. male who presents [...] of medication usage. Regarding elevated fasting glucose: Rubin presents in follow up of lab results [...] Chronic stable, continue same therapy - Aclidinium [place]ucah (Tudorza Pressair) 400 MCG/ACT Aerosol Powder, breath [...] and are negative. documented in this encounter [facility] History of Present illness Narrative 07-05-2020 Heather Rea, MARKUS-CIPHER EXPERT - 07/05/2020 9:00 AM EDTBEmily liz LPN - 07/05/2020 9:00 AM EDT Note Date & Type Note Facility 07-05-2020 History of Present illness Narrative HPI: SUBJECTIVE: Rubin Madrid is a 64 y.o. male being seen [...] Allergies Allergies Allergen Reactions Nyquil Severe Cold-Flu [Cbjrpqzwr-Zfanzdzgkl-Nb-Apap] Hives and Headache Dust Mite Extract Nasal [...] HAND SURGERY 02/[address] Patrick IN INSERT,INFLATABLE PENILE PROSTHESIS PROSTATECTOMY HEART CATHETERIZATION 2006 [...] Social Gatherings with Friends and Family: Attends Taoist Services: Active Member of Clubs or Organizations: [...] Judgment normal. Comments: Negative for sleep disturbance Mountain Score - 5 CPAP/BIPAP/APAP Pressure -14 cm H2O Most Recent Sleep Study -PSG 09/22/19 Oxygen Use -4 L at night Patient is benefiting from PAP therapy MARTÍN Griffin Referred jp-[id number] Symptoms include : Snoring/snorting -No Insomnia-No Waking with gasping/shortness of breath -No Difficulty concentrate- No Waking with headache-No Significant weight change-No Daytime Sleepiness-No Restless legs -No Upcoming surgeries?-No 6 month follow up-Doing good today pressure with machine feels comfortable to him. CURRENT MEDICATIONS: Current Outpatient Medications Medication Sig Dispense Refill Aclidinium [place]ucah (Tudorza Pressair) 400 MCG/ACT Aerosol Powder, breath [...] 14 cm H2O set up 10/06/2019 MARTÍN Griffin montelukast (Singulair) 10 MG tablet Take 1 [...] counseling and coordination of care. GUNJAN Roblero Mountain Score - 5 CPAP/BIPAP/APAP Pressure -14 cm H2O Most Recent Sleep Study -PSG 09/22/19 Oxygen Use -4 L at night Patient is benefiting from PAP therapy DME - Naun Griffin Referred dr-[id number] Symptoms include : Snoring/snorting -No Insomnia-No Waking with gasping/shortness of breath -No Difficulty concentrate- No Waking with headache-No Significant weight change-No Daytime Sleepiness-No Restless legs -No Upcoming surgeries?-No 6 month follow up-Doing good today pressure with machine feels comfortable to him. documented in this encounter [facility] History of Present illness Narrative 06-25-2020 Rob Burns MD - 06/25/2020 8:00 AM Ann Dick - 06/25/2020 8:00 AM EDT Note Date & Type Note Facility 06-25-2020 History of Presen t illness Narrative Chief Complaint Patient presents with Results Chronic Obstructive Pulmonary Disease Esophageal Reflux Hyperlipidemia Vitamin D Deficiency Obstructive Sleep Apnea Depression Edema HPI: Regarding Hyperlipidemia: Rubin comes in today to follow up on [...] due to the above factors. Regarding Anxiety/Depression: Rubin presents with the complaint of anxiety/depression which is currently under improved control. He reports the following triggers: stress, dealing with a teen with mental issues Other symptoms include: Current treatment includes: fluoxetine, Buspar Significant medical conditions: see problem list In Regards to COPD: Rubin Madrid presents in follow up for COPD, which [...] finds it beneficial In regards to edema: Rubin presents with the complaint of edema: Location: mid-tibia Onset: years ago Frequency: daily Significant PMH: morbid obesity Significant medications: furosemide Triggers/exacerbating factors: weight, sedentary lifestyle Alleviating factors: diuretics and support stockings Other: Leg Swelling , denies chest pain, SOB, orthopnea, has occasional palpitations he associates it with dehydration. In Regards to GERD: Rubin Madrid is a 64 y.o. male who presents [...] Chronic stable, continue same therapy - Aclidinium [place] (Tudorza Pressair) 400 MCG/ACT Aerosol Powder, breath [...] and are negative. documented in this encounter [facility] Evaluation note Note Date & Type Note Facility documented in this encounter [facility] Evaluation note Note Date & Type Note Facility documented in this encounter [facility] Evaluation note Note Date & Type Note Facility documented in this encounter [facility] Evaluation note Note Date & Type Note Facility documented in this encounter [facility] Work Phone: Evaluation note Note Date & Type Note Facility documented in this encounter [facility] Work Phone: Evaluation note Note Date & Type Note Facility documented in this encounter [facility] Work Phone: Assessments Diagnosis Sprain of calcaneofibular [...] FoundNo Family History Records Found Advance Directives No Advanced Directives Records FoundDocuments on File Type Date Recorded Patient Qual Research Manager Expl anation Advance Directives and Afshin plata Will 09/14/2018 5:58 AM Latest Code Status on File Code Status Date Activated Date Inactivated Comments Full Code 09/14/2018 12:16 PM Documents on File Type Date Recorded Patient Qual Research Manager Expl anation Advance Directives and Livin g [...] pain, went in to the ER in [place], work up for [place] was negative, they then did a dobutamine [...] C-PAP Edema Depression Hyperlipidemia HPI: Regarding Hyperlipidemia: Rubin comes in today to follow up on [...] due to the above factors. Regarding Anxiety/Depression: Rubin presents with the complaint of anxiety/depression which is currently under suboptimal control. He reports the following triggers: stress, dealing with a teen with mental issues Other symptoms include: increased stress, has been taking Buspar, not helping, only took it for 3 days Current treatment includes: fluoxetine, Buspar Significant medical conditions: see problem list In Regards to COPD: Rubin Madrid presents in follow up for COPD, which is chronic and stable. Control is at baseline. No increase in rescue use. No increase in cough, sputum, SOB. Compliance with medication is good.No medication side effects. he denies fever, chills, headache, sore throat, chest pain, palpitations, nausea, vomiting, diarrhea, dysuria, frequency, hematuria. In regards to edema: Rubin presents with the complaint of edema: Location: mid-tibia Onset: years ago Frequency: daily Significant PMH: morbid obesity Significant medications: furosemide Triggers/exacerbating factors: weight, sedentary lifestyle Alleviating factors: diuretics and support stockings Other: Leg Swelling , denies chest pain, SOB, orthopnea, has occasional palpitations he associates it with dehydration. In Regards to GERD: Rubin Madrid is a 62 y.o. male who presents [...] of medication usage. Regarding elevated fasting glucose: Rubin presents in follow up of lab results [...] Dispense: 100 vial; Refill: 3 - Aclidinium [place] (TUDORZA PRESSAIR) 400 MCG/ACT Aerosol Powder, breath [...] 09/15/2018 11:20 AM EDT Pastoral Care Eucharist camp attendant visited patient to attend to sacramental needs. Rev. Pilo Salazar M.Div., [facility] Staff Lepidopterist, Palliative Care [id number] 09/15/18 1120 Clinical Encounter Type Visit Type Non Crisis Non Crisis Visit Sacrament Visited With Patient Visited By Eucharistic Human Resources Partner Visit Length (minutes) 1-15 Sacramental Encounters Communion Given Indicator No Patient Spiritual Assessment Spiritual Assessed Unable to Assess 09/15/18 1120 Clinical Encounter Type Visit Type Non Crisis Non Crisis Visit Sacrament Visited With Patient Visited By Eucharistic Human Resources Partner Visit Length (minutes) 1-15 Sacramental Encounters Communion Given Indicator No Patient Spiritual Assessment Spiritual Assessed Unable to Assess 09/15/18 1120 Clinical Encounter Type Visit Type Non Crisis Non Crisis Visit Sacrament Visited With Patient Visited By Eucharistic Human Resources Partner Visit Length (minutes) 1-15 Sacramental Encounters Communion Given Indicator No Patient Spiritual Assessment Spiritual Assessed Unable to Assess documented in this encounter* Rob Burns MD - 07/20/2019 10:30 AM EDT Chief Complaint Patient presents with Results Chronic Obstructive Pulmonary Disease Hyperlipidemia Depression Edema Referral Patient would like to discuss getting a new referral for a different Surgical Coordinator. HPI: Occasional flutter in chest: happens less than once per month, only lasts a few seconds. Goes away with calmly breathing. No pattern to when it comes. He states the last time it happened was March, he denies any other symptoms with it. Regarding Hyperlipidemia: Rubin comes in today to follow up on [...] due to the above factors. Regarding Anxiety/Depression: Rubin presents with the complaint of anxiety/depression which is currently under improved control. He reports the following triggers: stress, dealing with a teen with mental issues Other symptoms include: Current treatment includes: fluoxetine, Buspar Significant medical conditions: see problem list In Regards to COPD: Rubin Madrid presents in follow up for COPD, which [...] like to change. In regards to edema: Rubin presents with the complaint of edema: Location: mid-tibia Onset: years ago Frequency: daily Significant PMH: morbid obesity Significant medications: furosemide Triggers/exacerbating factors: weight, sedentary lifestyle Alleviating factors: diuretics and support stockings Other: Leg Swelling , denies chest pain, SOB, orthopnea, has occasional palpitations he associates it with dehydration. In Regards to GERD: Rubin Madrid is a 63 y.o. male who presents [...] Chronic stable, continue same therapy - Aclidinium [place]uc[place] (Tudorza Pressair) 400 MCG/ACT Aerosol Powder, breath [...] sleep apnea syndrome Will refer to new learning design specialist - AMB REFERRAL TO PULMONARY 6. Chest [...] MD - 09/07/2019 8:30 AM EDT SUBJECTIVE: Rubin Madrid is a 63 y.o. male being seen [...] pain-no Cough-no Wheezing-sometimes Swelling LE-yes Hemoptysis- no Mountain score 6 Most recent sleep study About 7 years ago CPAP/ BiPAP pressure 13 cmH20 Patient is benefiting from PAP therapy yes DME company [employer] Oxygen use 4 LPM Symptoms include:wearing cpap [...] Outpatient Medications Medication Sig Dispense Refill Aclidinium [place]uc[place] (Tudorza Pressair) 400 MCG/ACT Aerosol Powder, breath [...] pain-no Cough-no Wheezing-sometimes Swelling LE-yes Hemoptysis- no Mountain score 6 Most recent sleep study About 7 years ago CPAP/ BiPAP pressure 13 cmH20 Patient is benefiting from PAP therapy yes [facility] [employer] Oxygen use 4 LPM Symptoms include:wearing cpap [...] Test Data/Misc documented in this encounter* Heather Rea APRN-NICA - 12/22/2019 9:45 AM EST HPI: SUBJECTIVE: Rubin Madrid is a 64 y.o. male being seen [...] Allergies Allergies Allergen Reactions Nyquil Severe Cold-Flu [Qzqpuradd-Gubbnsxvtk-Nn-Apap] Hives and Headache Dust Mite Extract Nasal [...] right arm Prostate cancer Pure hypercholesterolemia Radiation -2007 prostate Venous insufficiency (chronic) (peripheral) Vitamin D deficiency, unspecified Past Surgical History: Procedure Laterality Date HAND SURGERY 02/[address] Patrick IN INSERT,INFLATABLE PENILE PROSTHESIS -2009 PROSTATECTOMY HEART CATHETERIZATION 2006 ACL RECONSTRUCTION 1994 left knee Social History Socioeconomic History Marital [...] file Gets together: Not on file Attends taoist service: Not on file Active member of [...] Comments: Negative for sleep disturbance Nursing Assessment Mountain score 3 Most recent sleep study- 09/2019 CPAP/ BiPAP pressure 14 cmH20 Patient is benefiting from PAP therapy yes DME [employer] Oxygen use 4 LPM at night Symptoms [...] Outpatient Medications Medication Sig Dispense Refill Aclidinium [place] (Tudorza Pressair) 400 MCG/ACT Aerosol Powder, breath [...] pressure 14 cm H2O set up 10/06/2019 [employer] montelukast (Singulair) 10 MG tablet Take 1 [...] - 12/22/2019 9:45 AM EST Nursing Assessment Mountain score 3 Most recent sleep study- 09/2019 CPAP/ BiPAP pressure 14 cmH20 Patient is benefiting from PAP therapy yes DME company [employer] Oxygen use 4 LPM at night Symptoms [...] it is related to stress. Regarding Hyperlipidemia: Rubin comes in today to follow up on [...] due to the above factors. Regarding Anxiety/Depression: Rubin presents with the complaint of anxiety/depression which is currently under improved control. He reports the following triggers: stress, dealing with a teen with mental issues Other symptoms include: Current treatment includes: fluoxetine, Buspar Significant medical conditions: see problem list In Regards to COPD: Rubin Madrid presents in follow up for COPD, which [...] like to change. In regards to edema: Rubin presents with the complaint of edema: Location: mid-tibia Onset: years ago Frequency: daily Significant PMH: morbid obesity Significant medications: furosemide Triggers/exacerbating factors: weight, sedentary lifestyle Alleviating factors: diuretics and support stockings Other: Leg Swelling , denies chest pain, SOB, orthopnea, has occasional palpitations he associates it with dehydration. In Regards to GERD: Rubin Madrid is a 64 y.o. male who presents [...] of medication usage. Regarding elevated fasting glucose: Rubin presents in follow up of lab results [...] daily.Dispense: 3 Inhaler; Refill: 1 - Aclidinium [place]uc[place] (Tudorza Pressair) 400 MCG/ACT Aerosol Powder, breath [...] Disease Hyperlipidemia Edema Depression HPI: Regarding Hyperlipidemia: Rubin comes in today to follow up on [...] due to the above factors. Regarding Anxiety/Depression: Rubin presents with the complaint of anxiety/depression which is currently under suboptimal control. He reports the following triggers: stress, dealing with a teen with mental issues Other symptoms include: increased stress, has been taking Buspar, not helping, only took it for 3 days Current treatment includes: fluoxetine, Buspar Significant medical conditions: see problem list In Regards to COPD: Rubin Madrid presents in follow up for COPD, which is chronic and stable. Control is at baseline. No increase in rescue use. No increase in cough, sputum, SOB. Compliance with medication is good.No medication side effects. he denies fever, chills, headache, sore throat, chest pain, palpitations, nausea, vomiting, diarrhea, dysuria, frequency, hematuria. In regards to edema: Rubin presents with the complaint of edema: Location: mid-tibia Onset: years ago Frequency: daily Significant PMH: morbid obesity Significant medications: furosemide Triggers/exacerbating factors: weight, sedentary lifestyle Alleviating factors: diuretics and support stockings Other: Leg Swelling , denies chest pain, SOB, orthopnea, has occasional palpitations he associates it with dehydration. In Regards to GERD: Rubin Madrid is a 63 y.o. male who presents [...] of medication usage. Regarding elevated fasting glucose: Rubin presents in follow up of lab results [...] Chronic stable, continue same therapy - Aclidinium [place] (TUDORZA PRESSAIR) 400 MCG/ACT Aerosol Powder, breath activated inhalation powder; Inhale 1 Units 2 times daily. Dispense: 3 Each; Refill: 1 - budesonide-formoterol (SYMBICORT) 160-4.5 mcg/puff Aerosol inhaler; Inhale 2 puffs 2 times daily.Dispense: 3 Inhaler; Refill: 1 - montelukast (SINGULAIR) 10 MG Tab tablet; Take 1 tablet by mouth daily. Dispense: 90 tablet; Refill: 1 - IN NONINVASV OXYGEN SATUR; SINGLE 2. Major depressive [...] machine and is tolerating. HPI: Regarding Hyperlipidemia: Rubin comes in today to follow up on [...] due to the above factors. Regarding Anxiety/Depression: Rubin presents with the complaint of anxiety/depression which is currently under suboptimal control. He reports the following triggers: stress, dealing with a teen with mental issues Other symptoms include: increased stress, has been taking Buspar, not helping, only took it for 3 days Current treatment includes: fluoxetine, Buspar Significant medical conditions: see problem list In Regards to COPD: Rubin Madrid presents in follow up for COPD, which is chronic and stable. Control is at baseline. No increase in rescue use. No increase in cough, sputum, SOB. Compliance with medication is good.No medication side effects. he denies fever, chills, headache, sore throat, chest pain, palpitations, nausea, vomiting, diarrhea, dysuria, frequency, hematuria. In regards to edema: Rubin presents with the complaint of edema: Location: mid-tibia Onset: years ago Frequency: daily Significant PMH: morbid obesity Significant medications: furosemide Triggers/exacerbating factors: weight, sedentary lifestyle Alleviating factors: diuretics and support stockings Other: Leg Swelling , denies chest pain, SOB, orthopnea, has occasional palpitations he associates it with dehydration. In Regards to GERD: Rubin Madrid is a 62 y.o. male who presents [...] (!) 136.1 kg (300 lb 1.6 oz), [id number] %. Body mass index is 43.06 kg/m [...] weight loss to improve breathing - Aclidinium [place]uc[place] (TUDORZA PRESSAIR) 400 MCG/ACT Aerosol Powder, breath [...] daily. Dispense: 90 tablet; Refill: 1 - IN NONINVASV OXYGEN SATUR; SINGLE - CBC, EDIF, [...] sleep apnea syndrome Rob Burns MD [address] [place] [address] Arnold Burgos MD [address] [place] [address] Status Reason Specialty Diagnoses / Procedures Referred By Contact Referred To Contact New Request Diagnoses EDMAR (obstructive sleep apnea) Morbid obesity due to excess calories Chronic obstructive pulmonary disease, unspecified COPD type Procedures SLEEP STUDY - TITRATION Arnold Burgos MD [address] [address] Status Reason Specialty Diagnoses / Procedures Referred By Contact Referred To Contact New Request Diagnoses EDMAR (obstructive sleep apnea) Morbid obesity due to excess calories Chronic obstructive pulmonary disease, unspecified COPD type Procedures SLEEP STUDY - DIAGNOSTIC Arnold Burgos MD [address] [address] Specialty Diagnoses / Procedures Referred By Contac t Referred To Contact Diagnoses Chronic obstructive pulmonary disease, unspecified COPD type Rob Burns MD [address] [place] [address] Referral ID Status Reason Start Date Expiration Date Visits Re quested Visits Authorized [id number] Closed 1 1 Specialty Diagnoses / Procedures Referred By Contac t Referred To Contact Cardiology Diagnoses Encounter for screening for cardiovascular disorders Procedures Abdominal aorta anuerysm (AAA) screening [address] [address] Referral ID Status Reason Start Date Expiration Date Visits Requested Visits Authorized [id number] Authorized Perform Procedure 12/16/2022 12/16/2023 1 1 Specialty Diagnoses / Procedures Referred By Ria t Referred To Contact Diagnoses Encounter for other preprocedural examination Procedures ECG 12 lead Fozia Knapp, KNITTING MACHINE FIXER-CIPHER EXPERT [address] [place] [address] Referral ID Status Reason Start Date Expiration Date V isits Requested Visits Authorized [id number] Pending Review 02/24/2023 02/24/2024 1 1 Instructions * Patient Instructions* Emily Erickson, NICA - 09/09/2018 4:00 PM EDT Preoperative Medication Instructions In preparation for surgery please continue all of your current medications with the following changes: Rubin Madrid Home Medication Instructions Prior to Surgery GUSTAVO:[id number] Printed on:09/09/18 1622 Medication Information Take last dose on Take [...] medications that contain aspirin, such as Rebecca [place], Pepto-Bismol, Anacin), antiinflammatory medications such as Advil, Motrin, Ibuprofen, Naproxen, Aleve, Rebecca [place], Pepto-Bismol, Anacin, Diclofenac, Voltaren, Daypro, Etodolac, Ketoprofen, Piroxicam, Relafen, Nabumetone, etc. Also disc ontinue Vitamin C, Vitamin E, Refugio-3 Fatty Acid, Fish Oil or Lovaza, and [...] them to the hospital. Patient Instructions for [facility]: Prior to surgery: Surgeon's office will contact you with the scheduled time of your surgery. You may use the [email or web address] parking available at the Main Entrance One [...] any makeup or lotions. Remove all nail frisian for surgeries involving extremities. Please remember to bring both your insurance card and a photo ID with you on the day of surgery. After your surgery: If you are having outpatient surgery - you must have a licensed bulk delivery driver to take you home. The expectation is that this bulk delivery driver will remain at the hospital for [...] content) DATE CREATED AUTHOR AUTHOR'S ORGANIZ ATION 09/20/2018 [facility] DATE CREATED AUTHOR AUTHOR'S ORGANIZ ATION 10/07/2019 [facility] DATE CREATED AUTHOR AUTHOR'S ORGANIZ ATION 12/21/2020 [facility] DATE CREATED AUTHOR AUTHOR'S ORGANIZ ATION 01/08/2022 [facility] DATE CREATED AUTHOR AUTHOR'S ORGANIZ ATION 01/18/2023 [facility] DATE CREATED AUTHOR AUTHOR'S ORGANIZ ATION 02/25/2023 [facility] DATE CREATED AUTHOR AUTHOR'S ORGANIZ ATION 03/15/2023 [facility] Reason for Visit (unrecogniz ed section [...] getting a new referral for a different Surgical Coordinator. Reason Comments Follow-up Chronic Obstructive Pulmonary Disease Obstructive Sleep Apnea Status Reason Specialty Diagnoses / Procedures Referred By Contact Referred To Contact Closed Pulmonary Disease Diagnoses Chronic obstructive pulmonary disease, unspecified COPD type Obstructive sleep apnea syndrome Rob Burns MD [address] [place] [address] Arnold Burgos MD [address] [place] [address] Reason Comments Daytime Sleepiness Status Reason Specialty Diagnoses / Procedures Referre d By Contact Referred To Contact Closed Diagnoses EDMAR (obstructive sleep apnea) Morbid obesity due to excess calories Chronic obstructive pulmonary disease, unspecified COPD type Procedures SLEEP STUDY - TITRATION Arnold Burgos MD [address] [address] Reason Comments Establish Care Obstructive Sleep Apnea [...] - DIAGNOSTIC Arnold Burgos MD [address] [address] Reason Comments Results Chronic Obstructive Pulmonary Disease [...] Referred By Ria t Referred To Contact Cardiology Diagnoses Encounter for screening for cardiovascular disorders Procedures Abdominal aorta anuerysm (AAA) screening [address] [address] Referral ID Status Reason Start Date Expiration Date Visits Requested Visits Authorized [id number] Authorized Perform Procedure 12/16/2022 12/16/2023 1 1 Specialty Diagnoses / Procedures Referred By Contac t Referred To Contact Diagnoses Encounter for other preprocedural examination Procedures ECG 12 lead Fozia Knapp, KNITTING MACHINE FIXER-CIPHER EXPERT [address] [place] [address] Referral ID Status Reason Start Date Expiration Date V isits Requested Visits Authorized [id number] Pending Review 02/24/2023 02/24/2024 1 1 Wilber Burr MD - 09/14/2018 7:37 AM Migdalia Box PA-C - 08/30/2018 11:22 AM EDT H&P Notes (unrecognized sect ion and content) INTERVAL HISTORY AND PHYSICAL Patient Name: Rubin Madrid Admit Date: [id number] MR #: [id number] : 1955 The H&P has been reviewed and the patient has been examined. I concur with the findings of the H&P. There are no significant changes. It is appropriate to proceed with the planned procedure. Wilber Burr MD 09/14/2018 7:37 AM Patient here for preoperative examination for removal and replacement of penile prosthesis inflatable device. He does have remote history of prostate cancer, Calcium 6, which was treated with radical prostatectomy [...] instructions given to patient. Surgery scheduled at [facility]. All questions answered. Post-operative appointment made. [...] Significant for ACL replaced left knee, pneumonia , ear tubes, adenoids removed, radical prostatectomy 01-24-07, [...] MG ORAL TABLET (MONTELUKAST SODIUM) New Orders: [id number] OFC.VISIT,EXTENDED [[id number]] Medical Decision-Making Amount/complexity of data to be reviewed * review/order clinical lab tests * review/order other diagnostic or tx interventions * review and summarization of old records Risk of complications: moderate First appointment Second appointment Third Appointment . documented in this encounter Plan of Michael - Kitty Ni RN - 09/15/2018 1:51 PM EDTPlan of Michael - Carlton Vega RN - 09/15/2018 5:48 [...] use of walker. RT staff here at [facility] placing patient on CPAP per Dr. Mittal. Called RT to place patient on CPAP per order after talked with Dr. Gordon about patient. RT staff here at [facility] for breathing treatment as ordered Dr. Burr here at [facility] to talk with patient about surgery. PATIENT NAME: Rubin Madrid : 1955 ADMITTED: [id number] CSN: [id number] DATE. September 14, 2018 PRE-OPERATIVE DIAGNOSIS. Organic [...] Care Teams (unrecognized sec tion and content) Mooner Relationship Specialty Start Date End Date Fozia Knapp APRN-CNP [address] [place] [address] PCP - General Family Medicine 12/16/22 Mooner Relationship Specialty Start Date End Date Fozia Knapp APRN-CNP [address] [place] [id number] PCP - General Family Medicine 12/16/22 FOR RECORDS PERTAINING TO PATIENTS WHO ARE [...] BE BASED ON THE PRIMARY CLINICAL RECORDS. [facility]. provides no warranty or guarantee of the accuracy or completeness of information in this document.
[2023-03-23] MEDS: Gabapentin 600 MG Tablet PO (06:12)
[2023-03-23] MEDS: Celecoxib 200 MG Capsule 400 MG PO (06:12)
[2023-03-23] MEDS: Acetaminophen 500 MG Tablet 1000 MG PO ×3 (06:12→21:47)
[2023-03-23] MEDS: Lactated Ringers 1,000 ML 999 ML IV (06:21)
[2023-03-23] MEDS: Magnesium 1 GM over 15 mins IV (06:22)
[2023-03-23] MEDS: Lactated Ringers 1,000 ML 100 ML IV (06:31)
[2023-03-23 07:28] LABS: Bedside Glucose 91 mg/dL (74-106)
--- NOTE | 2023-03-23 07:56 | PCM.HP.BLA ---
History and Physical Date of Admission: 03/23/23 [facility] [address] [place] [address] OFFICE VISIT Date of Service: 02/17/23 MR#: [id number] Acct: [id number] Name: RUBIN MADRID Rep #: [id number] : 1955 Provider: Dr. Robert Jordan DO Age/Sex: 67/M Location: [facility] Status: Signed Intake Vital Signs 05/04/2312:47 02/17/2407:27 Height 5 ft 10 in 5 ft 10 in Weight: 298 lb 8 oz BMI 42.8 Intake Visit Reasons: LEFT HIP Chief Complaint: left hip Is patient in pain?: Yes Allergies acetaminophen [From NyQuil] Allergy (Severe, Verified 02/17/23 08:30) wheezing, hivesdextromethorphan [From NyQuil] Allergy (Severe, Verified 02/17/23 08:30) wheezing, hivesdoxylamine [From NyQuil] Allergy (Severe, Verified 02/17/23 08:30) wheezing, hivespseudoephedrine [From NyQuil] Allergy (Severe, Verified 02/17/23 08:30) wheezing, hivesadhesive tape [tape] Adverse Reaction (Severe, Verified 02/17/23 08:30) Blisters Medications cholecalciferol (vitamin D3) 125 mcg (5,000 unit) capsule 125 mcg PO DAILY 02/19/22 [History Confirmed 02/17/23] fluoxetine 20 mg capsule ea PO 02/19/22 [History Confirmed 02/17/23] furosemide 20 mg tablet ea PO 02/19/22 [History Confirmed 02/17/23] omeprazole 20 mg capsule,delayed release 20 mg PO DAILY 02/19/22 [History Confirmed 02/17/23] potassium chloride 10 mEq tablet,extended release(part/cryst) tablet PO 02/19/22 [History Confirmed 02/17/23] rosuvastatin 10 mg tablet tablet PO 02/19/22 [History Confirmed 02/17/23] fluticasone fur. 100 mcg-umeclid 62.5 mcg-vilant 25 mcg inhalat.powder (Trelegy Ellipta) 1 inh inhalation DAILY 02/17/23 [History Confirmed 02/17/23] [facility] Medical History Avascular necrosis of bone of left hip Hx of bacterial pneumonia Left hip pain Surgical History History of carpal tunnel release of both wrists History of repair of anterior cruciate ligament of left knee Hx of prostatectomy Social History Smoking Status: Never smoker alcohol intake: never HPI LEFT HIP Details: This documentation accurately reflects the service provided and the decisions made by me, Dr. Robert Jordan, DO 02/17/23 0757. Part of today?s visit was documented by Kitty Shetty, acting as scribe. RUBIN MADRID is a 67 year old M here today for left hip pain. Patient notes that his hip pain has progressively worsened. Patient complains of pain deep into his hip. He denies any recent injury. He has increased pain with stepping into his shower and getting into his truck. These were the only 2 activities that cause him significant discomfort the rest of the day is tolerable, he ambulates with an antalgic gait. He ambulates with a cane due to his gait. He has increased pain with the first few steps after sitting for awhile. He denies any pain medications. Patient denies any numbness or tingling. Ortho Exam General General: Yes no acute distress Neurologic: Yes alert and Yes oriented x3 Psychologic: Yes reasonable and appropriate Left Hip Skin/Wound: Yes CDI, No Ecchymosis, No soft tissue swelling and No Erythema Hip: Absent eccymosis, soft tissue swelling or erythema external rotation @90 degree extension: 15 degrees HIP: no masses -8 IR hip. swelling in legs. Head: Normocephalic Atraumatic Chest: symmetrical rise, non-labored breathing, no audible wheeze Abdomen: no guarding, non-rigid Supplemental Info 02/17/2023 x-ray left hip: Avascular necrosis with femoral head collapse 06/15/2022 x-ray left hip: AVN left femoral head appears to have more joint space narrowing today there is more sclerosis around the lesion no further collapse 02/19/2022 x-ray left hip: Subchondral cystic changes of the femoral head consistent with AVN possible early flattening Coding Level of Care Code Off vis,est,level 3 Diagnoses Avascular necrosis of bone of left hip M87.052 Sleep apnea, unspecified type G47.30 Sleep apnea type: unspecified type Assessment and Plan Assessment and Plan (1) Avascular necrosis of bone of left hip: Status: Acute (2) Sleep apnea: Qualifiers: Sleep apnea type: unspecified type Qualified Code(s): G47.30 - Sleep apnea, unspecified Plan Spoke with the patient about having avascular necrosis and his hip collapsed. Recommended the patient have a total hip replacement due to the collapse. Spoke with the patient about the surgery procedure, risks and benefits and recovery. He is at an increased risk of complications due to his BMI, COPD and sleep apnea. Patient will need a CT scan for the makoplasty. He will be on a blood thinner post op due to risk of blood clots. He will do formal physical therapy following his surgery. Patient will be done as an inpatient surgery due to his COPD, sleep apnea and obesity. Patient will need to go to the dentist for his broken tooth, recommended he get this taken care of FLORI. He should contact our office after his dental appointment, so we can get this scheduled FLORI. Will also need medical clearance. Risks, benefits and alternatives of surgery reviewed including but not limited to bleeding, infection, nerve, foot drop, artery and/or tissue damage, fracture, VTE, leg length discrepancy, dislocation, need for hip precautions, continued pain and expected post-operative course. Patient may have a steroid injection into his knees. He wishes to wait for the injections, would also be useful to get x-rays of his knees in the future if needed he does have a history of left knee ACL reconstruction reportedly. Follow up for 2 week post op or sooner if pain, swelling, numbness or associated symptoms, or concerns develop. All questions answered. Patient in agreement of plan. 02/17/23 1022 <Electronically signed by Robert Jordan DO> Date Robert Jordan DO Cosigner Signature: Date (if applicable) CC: ~ I have examined the patient and the H&P has been reviewed. There are no clinical changes since date of exam.
--- NOTE | 2023-03-23 08:00 | HIP_PTH ---
PATHOLOGY RESULTS PATIENT: RUBIN MADRID LOC: [facility] U#:[id number] AGE/SX: 67/M ROOM: [facility] RE03/23/[address]: Dr. Robert Jordan DO : 1955 BED: 1 DIS: 03/24/2023 SPEC #: [id number] RECD: 03/23/23 12:27 STATUS: GENOVEVA GINNY #: [id number] DEAN: 03/23/23 08:[address]: Robert Jordan DEPT: SURGICAL PATHOLOGY RECD BY: Ivy Velásquez ENTERED: 03/23/23 12:28 SP TYPE: TOTAL HIP OTHR DR: CARL ALCALA Tissues: Hip, NOS Procedures: Decalcification bone/plaque Surgery Specimen Level IV HEADER OPERATION: ERAS, left total hip replacement robotic arm assisted PRE-OP DIAGNOSIS: Avascular necrosis of bone of left hip TISSUE SUBMITTED: Left femoral head MICROSCOPIC DIAGNOSIS Left femoral head, total hip resection: Severe degenerative joint disease and changes of avascular necrosis. AM:rakel 03/29/2023 MICROSCOPIC DESCRIPTION Slides are reviewed. GROSS DESCRIPTION Received is one container labeled with the patient's name and designated left femoral head. The specimen consists of a cardenas femoral head measuring 5.0 x 5.0 x 4.0 cm. A portion of femoral neck is also present measuring 1.0 cm in length. The articular surface displays prominent osteophyte formation, eburnation and bone erosion. Sections reveal a cardenas yellow area consistent with avascular necrosis measuring 3 x1 cm. Also present in the specimen container are multiple pieces of bone reamings and detached pieces of bone including a piece of bone consistent with loose body measuring in aggregate 9.0?x 9.0 x 1.5 cm. The loose body measures 1.5 cm in greatest dimension. Detached piece of bone measures 3.0 x 1.5 x 1.0 cm. Senior Administrator Support sections are submitted in three cassettes after decalcification as follows: 1 - bone reamings, 2 & 3 - femoral head. / SJ:rakel 03/23/2023 TC:5 CPT: 94651, 90512
[2023-03-23] MEDS: Cefazolin 3 GM in 0.9% Normal Saline (100mL Bag) 100 ML IV ×3 (08:10→23:24)
[2023-03-23] MEDS: TRANEXAMIC ACID 2,000 MG in 0.9% Normal Saline (100mL Bag) 100 ML 660 MG IV (08:25)
[2023-03-23] MEDS: dexAMETHasone 10 MG/ML Vial IV (08:30)
--- NOTE | 2023-03-23 11:10 | OP.PCM_ITS ---
Operative Report Date of Procedure: 03/23/23 Preoperative diagnosis: Left hip avascular necrosis Postoperative diagnosis: Same Procedure: CT-guided Makoplasty assisted left total hip arthroplasty Implants: Oscar Accolade II stem size 7, 127 degree neck angle -5 neck length 56 mm Trident II acetabular shell with 45 mm cancellous screw 36 mm ceramic head, 10 degree Trident X3 polyethylene insert. Anesthesia: Spinal converted to general IntraOp EBL: 175 cc Complications: None Condition: Stable to PACU Educational Fundraising Director Ubaldo Granda. My physician technical services assistant was a vital part of this case. He was important in appropriate retraction during the case, and protection of soft tissues during procedure. His intimate knowledge of the case and my steps aided in safe and expedient completion of the procedure as well as appropriate position of the extremity during the case. He was also vital in assisting with closure under my direct supervision. Indication for procedure: This is a 67 with avascular necrosis and femoral head collapse of the left hip who has failed conservative treatment and wished to undergo total hip arthroplasty. We did discuss operative versus nonoperative intervention including risks of bleeding, infection , nerve artery tissue damage, need for further surgery, fracture, leg length discrepancy dislocation blood clot and need for postoperative physical therapy and postoperative expectations. An informed consent was signed. Procedure: Patient was met in the preoperative holding area once again the operative extremity was identified by both patient and physician and was marked. Patient was met by anesthesia . Anesthesia was started. patient was then positioned in the lateral decubitus position on a well-padded pegboard with an axillary roll. All bony prominences were checked and padded. The patient was prepped and draped in the usual sterile fashion. A timeout was called to ensure the proper patient procedure and extremity were being contemplated. Anatomic landmarks were palpated and marked for a standard posterior lateral approach. Prior to this the ASIS was palpated and 3 fingerbreadths proximal to this 3 pins were placed at a 45 degree angle into the iliac crest with good purchase, stab incisions were made with a 15 blade into the skin prior to placement. The Makoplasty array was then secured. A 10 blade scalpel was used to make a posterior incision through the skin and subcutaneous tissue. retractors were used and electrocautery was used to maintain meticulous hemostasis and dissect full-thickness flaps until the gluteal fascia was reached. The gluteal fascia was incised in line with the gluteal fibers. The bursal tissue was then freed from the underside and a Charnley retractor was placed. The femoral trochanteric checkpoint was placed and leg length was assessed using the trochanteric checkpoint and an EKG lead that was placed on the knee prior to prepping the leg .the fat pad was then elevated off of the external rotators with electrocautery and the external rotators were dissected off of the greater trochanter including the piriformis and were tagged with #1 Ethibond for later repair. The joint capsule opened with posterior trapdoor technique. The hip was surgically dislocated. The measurement on the preoperative CT from the top of the lesser trochanter to the femoral neck cut was marked Hohmann was placed around the lesser trochanter. A neck cutting guide was used to edgard the neck with a Bovie and an oscillating saw was used complete the femoral neck cut. The femoral head was then removed and sized. We then turned our attention to the acetabulum. A Bovie was used to make a perforation in the anterior joint capsule and a Mccormack retractor was placed this was repeated in the 6 o'clock position and a wide shakir was placed there. With a long handled knife the labral and pulvinar tissue were removed. We then registered the acetabulum with the pointing array and confirmed our landmarks. Once the socket was thoroughly prepared and labral tissue and pulvinar was removed we single reamed with the robotic arm. We then used the robotic arm to position the acetabular implant and impacted it into place under robotic guidance. We then proceeded to place a posterior superior screw by drilling first measuring and inserting the screw. We then inserted a trial liner. And turned our attention back to the femur at this point a femoral elevator was used. As well as a pointed wide Hohmann around the lesser trochanter and a Hohmann to help retract the gluteus medius. A box chisel was used to remove excess lateral neck followed by a canal finder and a lateralizing reamer. This was followed by sequential broaches. Attention was made of the version within the canal based on preoperative templating. Once the final broach was seated we then trialed reduced the hip it was determined that a 127 degree neck angle with a -5 neck length was the appropriate size. We then checked stability with shuck testing as well as flexion and internal rotation. then proceeded with hip extension and checked leg lengths at the knees and heels as well as with the trochanteric checkpoint and knee EKG lead. At this point trials were removed. A liner was inserted to the cup. The femoral stem was inserted. We re-trialed and then proceeded to impact the femoral head onto the Deny taper. We then surgically reduce the hip check stability again and leg lengths and were satisfied. Betadine rinse was allowed to sit for 5 minutes while everyone changed their gloves. Thorough irrigation was performed. Followed by closure of the external rotators with #2 FiberWire followed by closure of gluteal fascia with #1 Ethibond. 0 Vicryl fat stitches and 2-0 Vicryl subcutaneous stitches and lisa in the skin. Lisa were placed in the skin pin sites over the iliac crest and dressed with a Mepilex dressing. The main incision was dressed with a Mepilex ag dressing and an abduction pillow was placed. Patient tolerated the procedure well there was no intraoperative complications all counts were correct and the patient was brought back to the PACU in stable condition
--- NOTE | 2023-03-23 11:25 | RAD_ITS ---
STUDY: X-RAY - PELVIS AND LEFT HIP REASON FOR EXAM: Male, 67 years old. Post Op -- AP both hips on single steven/lateral of op hip PACU TECHNIQUE: 3 views of the pelvis and hip. COMPARISON: Comparison is made with prior study dated February 17, 2023. FINDINGS: The patient is status post left total hip replacement. Is good alignment. Postoperative soft tissue changes. Penile implant is visualized. RAD/Hip Min 2 Views (Portable) IMPRESSION: Status post left total hip replacement. There is good alignment. Postoperative soft tissue changes. Electronically Signed: Shayne Goldsmith MD at 12:27 EST ,
[2023-03-23] MEDS: Lactated Ringers 1,000 ML 125 ML IV (11:45)
[2023-03-23] MEDS: Ipratropium/Albuterol Sulfate 3 ML AMPUL.NEB INHALATION (12:15)
[2023-03-23] MEDS: oxyCODONE 5 MG Tablet PO (13:45)
[2023-03-23] MEDS: Ketorolac 30 MG/ML Syringe IV (15:53)
[2023-03-23] MEDS: 0.9% Saline Lock 10 ML Syringe IV (15:54)
[2023-03-23] MEDS: 0.9% Normal Saline (1000mL) 1,000 ML 125 ML IV (15:58)
--- OUTSIDE RECORDS SUMMARY | 2023-03-23 16:46 | XMS RPT_ITS | CCD ---
Author Name Unknown Address [address] [place] [address] Organization [facility] Care Team Providers Care Dock Supervisor Name Role Phone Rob Burns Unavailable [phone] Unavailable Unavailable Unavailable NewNarendra watersel Unavailable Unavailable [...] Rob Burns MD Primary Care Provider Rob Burns MD Primary Care Provider [phone] FOZIA KNAPP Referring Unavailable STONEFOZIA REBECA Attending Unavailable STONE, FOZIA REBECA Primary Care Unavailable Stone COOK SHORT ORDER-DUCK BILL OPERATOR, Fozia Rebeca Primary Care Provide r STONE FOZIA REBECA Primary Care Unavailable HERRERA KESSLER Attending Unavail able FOZIA KNAPP Primary Care Unavailable FOZIA KNAPP Primary Care Unavailable Allergies Allergy Classification Reported Allergen(s) Allergy Type Date of Onset Reaction(s) Facility MITE EXTRACT (2 sources) MITE EXTRACT Drug Allergy [facility] (7 sources) latvian house dust mite extract / house dust mite extract; Translations: [ALLERG XT,D.FARINAE-D.PTER ONYS] Propensity to adverse reactions to drug [facility] Work Phone: (5 sources) diazePAM Propensity to adverse reactions to drug 08-28-19 10 [facility] Work Phone: (8 sources) NYQUIL; Translations: [Unknown] Propensity to adverse reactions to drug 09-29-19 17 Rash [facility] Work Phone: (2 sources) Dextromethorphan / Doxylamine; Translations: [NyQuil Cough] Drug Allergy [facility] Repository (2 sources) diazePAM; Translations: [Valium] Drug Allergy [facility] Repository (1 source) Silk adhesive tape; Translations: [Silk tape] Propensity to adverse reactions to drug (disorder) [facility] Repository (13 sources) MITE EXTRACT Drug Allergy [facility] Work Phone: (15 sources) PHENYLEPH-DOXYLAMIN E-DM-APAP Propensity to adverse reactions to drug Hives, Headache [facility] Work Phone: (15 sources) *SEASONAL Propensity to adverse reactions to substance [facility] Work Phone: (1 source) ALLERGIES NOT ON FILE; Translations: [ALLERGIES NOT ON FILE] Propensity to adverse reactions (disorder) [facility] 2 Repository Medications Current Medications Medication Drug [...] 1 [IU] by inhalation twice daily Aclidinium [place] (Tudorza Pressair) 400 MCG/ACT Aerosol Powder, breath [...] 78 mm[Hg] Rob Burns MD Work Phone: [facility] 12-20-2020 08:33-0400 Systolic blood pressure 142 mm[Hg] Rob Burns MD Work Phone: [facility] 12-20-2020 08:11-0400 Body height 177.8 cm Rob Burns MD Work Phone: [facility] 12-20-2020 08:11-0400 Body mass index (BMI) [Ratio] 41.63 kg/m2 Rob Burns MD Work Phone: [facility] 12-20-2020 08:11-0400 Body weight 131.59 kg Rob Burns MD Work Phone: [facility] 12-20-2020 08:11-0400 Heart rate 68 /min Rob Burns MD Work Phone: [facility] 12-20-2020 08:11-0400 SaO2% (BldA) [Mass fraction] 91 % Rob Burns MD Work Phone: [facility] 07-05-2020 09:07-0400 Body height 177.8 cm Heather Rona COOK SHORT ORDER-DUCK BILL OPERATOR Work Phone: [facility] 07-05-2020 09:07-0400 Body mass index (BMI) [Ratio] 44.54 kg/m2 Heather Rona COOK SHORT ORDER-DUCK BILL OPERATOR Work Phone: [facility] 07-05-2020 09:07-0400 Body weight 140.8 kg Heather Rona COOK SHORT ORDER-DUCK BILL OPERATOR Work Phone: [facility] 07-05-2020 09:07-0400 Diastolic blood pressure 80 mm[Hg] Heather Rona COOK SHORT ORDER-DUCK BILL OPERATOR Work Phone: [facility] 07-05-2020 09:07-0400 Heart rate 84 /min Heather Rona COOK SHORT ORDER-DUCK BILL OPERATOR Work Phone: [facility] 07-05-2020 09:07-0400 Respiratory rate 16 /min Heather Rona COOK SHORT ORDER-DUCK BILL OPERATOR Work Phone: [facility] 07-05-2020 09:07-0400 SaO2% (BldA) [Mass fraction] 92 % Heather Rona COOK SHORT ORDER-DUCK BILL OPERATOR Work Phone: [facility] 07-05-2020 09:07-0400 Systolic blood pressure 130 mm[Hg] Heather Rona COOK SHORT ORDER-DUCK BILL OPERATOR Work Phone: [facility] 06-25-2020 08:05-0400 Body mass index (BMI) [Ratio] 44.29 kg/m2 Rob Burns MD Work Phone: [facility] 06-25-2020 08:05-0400 Body weight 140.03 kg Rob Burns MD Work Phone: [facility] 06-25-2020 08:05-0400 Diastolic blood pressure 82 mm[Hg] Rob Burns MD Work Phone: [facility] 06-25-2020 08:05-0400 Heart rate 79 /min Rob Burns MD Work Phone: [facility] 06-25-2020 08:05-0400 SaO2% (BldA) [Mass fraction] 92 % Rob Burns MD Work Phone: [facility] 06-25-2020 08:05-0400 Systolic blood pressure 141 mm[Hg] Rob Burns MD Work Phone: [facility] 01-01-2020 09:13-0500 BMI (Body Mass Index) 43.16 kg/m2 Rob Burns [facility] 01-01-2020 09:13-0500 Body weight 136.44 kg [facility] 01-01-2020 09:13-0500 BP Diastolic 77 mm[Hg] [facility] 01-01-2020 09:13-0500 BP Systolic 134 mm[Hg] [facility] 01-01-2020 09:13-0500 Height 177.8 cm [facility] 01-01-2020 09:13-0500 Pulse (Heart Rate) 72 /min [facility] 01-01-2020 09:13-0500 Pulse Oximetry 90 % [facility] 12-22-2019 08:54-0500 BMI (Body Mass Index) 43.28 kg/m2 [facility] 12-22-2019 08:54-0500 Body weight 136.81 [facility] 12-22-2019 08:54-0500 BP Diastolic 78 mm[Hg] [facility] 12-22-2019 08:54-0500 BP Systolic 114 mm[Hg] [facility] 12-22-2019 08:54-0500 Height 177.8 cm [facility] 12-22-2019 08:54-0500 Pulse (Heart Rate) 78 /min [facility] 12-22-2019 08:54-0500 Pulse Oximetry 95 % [facility] 12-22-2019 08:54-0500 Respiratory Rate 22 /min [facility] 09-07-2019 08:28-0400 BMI (Body Mass Index) 41.87 kg/m2 [facility] 09-07-2019 08:28-0400 Body weight 132.36 kg [facility] 09-07-2019 08:28-0400 BP Diastolic 70 mm[Hg] [facility] 09-07-2019 08:28-0400 BP Systolic 140 mm[Hg] [facility] 09-07-2019 08:28-0400 Height 177.8 cm [facility] 09-07-2019 08:28-0400 Pulse (Heart Rate) 78 /min Arnold [facility] 09-07-2019 08:28-0400 Pulse Oximetry 93 % [facility] Encounters Encounter Date Encounter Type Care Provider Facility Start: 02-24-2023 End: 02-25-2023 ambulatory FOZIA KNAPP [facility] Start: 02-24-2023 End: 02-25-2023 Encounter for other preprocedural examination FOZIA KNAPP [facility] Start: 02-24-2023 End: 02-24-2023 Patient encounter status [facility] Work Phone: Start: 02-24-2023 End: 02-24-2023 Subsequent hospital visit by physician Kailash Campos Nonv1 Ecg Resource [facility] Procedures Date Procedure Procedure Detail Performing Clinician Start: 02-24-2023 ECG 12-LEAD FOZIA COSTELLOShannan Seymour Start: 02-24-2023 Ecg routine ecg w/le ast 12 lds trcg only w/o i&r Fozia Knapp COOK SHORT ORDER-DUCK BILL OPERATOR Work Phone: Start: 12-22-2022 VASC US ABDOMINAL AO RTA ANEURYSM AAA SCREENING FOZIA KNAPP Start: 12-22-2022 Us abdominal aorta r eal time screen study aaa Fozia Knapp COOK SHORT ORDER-DUCK BILL OPERATOR Work Phone: Start: 12-02-2020 Lipid 1996 panel [...] Start: 08-08-2018 Lipid 1996 panel - S ik or Plasma Rob Burns Start: 02-16-2018 Lipid 1996 panel - S ki or Plasma Rob Burns Start: 09-28-2017 Colonoscopy Provider Marvel pope Start: 08-24-2017 Lipid 1996 panel - S ki or Plasma Provider Kevin Plan of Treatment Date Care Activity Detail Author Start: 12-02-2025 Fasting lipid profile LIPID SCREENING [facility] Start: 06-13-2025 Fasting lipid profile LIPID SCREENING [employer] [facility] Start: 12-21-2024 Fasting lipid profile LIPID SCREENING [facility] Start: 07-11-2024 Fasting lipid profile LIPID SCREENING [facility] Start: 01-24-2024 Fasting lipid profile LIPID SCREENING [facility] Start: 08-09-2023 Fasting lipid profile LIPID SCREENING [facility] Start: 04-27-2023 End: 04-27-2023 Patient encounter procedure 04/27/2023 8:00 AM EDT Appointment [facility] [address] [place] [address] [phone] Santiago Vazquez, DO [address] [facility] [place] [address] [facility] Start: 03-26-2023 End: 03-26-2023 ambulatory 03/26/2023 11:30 AM EST Evaluation [facility] [address] [place] [phone] Pita Puckett, PT [address] [facility] [place] [phone] [facility] Start: 02-16-2023 Fasting lipid profile LIPID SCREENING [facility] Work Phone: Start: 09-28-2022 Colonoscopy COLONOSCOPY [facility] Start: 08-24-2022 Fasting lipid profile LIPID SCREENING [facility] Work Phone: Start: 12-02-2021 Potassium [Moles/volume] in Serum or Plasma POTASSIUM [facility] Start: 12-02-2021 Prostate specific antigen measurement PROSTATE CANCER SCREENING DISCUSSION [facility] Start: 07-03-2021 End: 07-03-2021 Patient encounter procedure [facility] Pulmonary Disease [facility] Start: 07-01-2021 DTaP/Tdap/Td Vaccines (1 - Tdap) DTaP/Tdap/Td Vaccines (1 - Tdap) [facility] Start: 06-25-2021 Prostate specific antigen measurement PROSTATE CANCER SCREENING DISCUSSION [facility] Start: 06-13-2021 End: 06-13-2021 Patient encounter procedure 06/13/2021 Office Visit Family Medicine Rob Burns MD [address] [place] [phone] [facility] Start: 05-19-2021 End: 09-16-2021 Hepatic function 2000 panel - Serum or Plasma HEPATIC FUNCTION PANEL Lab Routine Mixed hyperlipidemia Expected: 05/19/2021 (Approximate), Expires: 09/16/2021 [facility] Work Phone: Immunizations Immunization Date Immunization Notes Care Provider Kevin [facility] 12-20-2020 influenza, injectabl e, quadrivalent, preservative free Rob Burns MD Work Phone: [facility] 12-20-2020 influenza quad vacci ne 0.5 ML Suspension Prefilled Syringe Rob Burns MD Work Phone: [facility] 01-01-2020 influenza, injectabl e, quadrivalent, preservative free Rob Burns [facility] 01-01-2020 influenza quad vacci ne 0.5 ML Suspension Prefilled Syringe Rob Burns [facility] 12-14-2018 Seasonal, quadrivale nt, recombinant, injectable influenza vaccine, preservative free Rob Burns MD Work Phone: [facility] 12-14-2018 influenza virus vacc ine, unspecified [facility] 11-17-2017 influenza virus vacc ine, whole virus [facility] Work Phone: 11-17-2017 influenza virus vacc ine, unspecified formulation [facility] 03-16-2017 pneumococcal polysaccharide vaccine, 23 valent; Translations: [PNEUMOCOCCAL POLYSAC 23-VALENT VACCINE] Provider [facility] Work Phone: 11-11-2016 influenza, injectabl e, quadrivalent, preservative free Rob Burns MD Work Phone: [facility] 11-11-2016 influenza virus vacc ine, unspecified formulation Provider [facility] Work Phone: 11-14-2013 influenza, injectabl e, quadrivalent, contains preservative Provider [facility] Work Phone: 11-14-2013 influenza, seasonal, injectable Rob Burns MD Work Phone: [facility] 10-24-2012 influenza, injectabl e, quadrivalent, contains preservative Provider [facility] Work Phone: 10-24-2012 influenza, seasonal, injectable Rob Burns MD Work Phone: [facility] 01-18-2012 influenza, injectabl e, quadrivalent, contains preservative Provider [facility] Work Phone: 12-30-1999 TD(adult) unspecifie d formulation Rob Burns [facility] Work Phone: Payers Date Payer Category Payer Medicare [facility] [employer] MEDICARE [id number] 2022-Present [address] [place] [address] [id number] 2022 Medicare [id number] 2021 Unknown [id number] 2017 Unknown 2016 Unknown [id number] 2016 Unknown [id number] 2014 Unknown [id number] 2014 Unknown [id number] 2014 Unknown [id number] 1957 Unknown [id number] 1957 Unknown [id number] 1957 Unknown [id number] 1957 Unknown [id number] [id number] 1957 Unknown [id number] 1957 Unknown [id number] 1957 Unknown [id number] 1957 Unknown [id number] 1957 Unknown [id number] Social History Date Type Detail Facility Start: 10-26-2016 End: 07-05-2020 Tobacco smoking status INIS Former smoker [facility] Work Phone: Start: 10-26-2016 End: 09-09-2018 Cigarettes smoked current (pack per day) - Reported [facility] Work Phone: Start: 1955 [facility]igned [facility] on [facility] End: 09-27-2006 History of tobacco use Current smoker [facility] Work Phone: End: 09-27-2006 History of tobacco use Cigarette Smoker [facility] Work Phone: Start: 07-20-2019 End: 07-05-2020 Tobacco use and exposure Never used [facility] Start: 07-20-2019 End: 12-20-2020 Alcohol intake Current non-drinker of alcohol (finding) [facility] Start: 12-12-2022 End: 02-24-2023 Exposure to SARS-CoV-2 (event) Not sure [facility] Start: 09-22-2018 Tobacco use and exposure Former user [facility] Tobacco smoking stat [facility] Tobacco smoking consumption unknown [facility] Work Phone: Gender identity Not on file [facility] Work Phone: Medical Equipment Procedure Code Equipment Code Equipment Origin al Text Equipment Identifier Dates Kit Accessory 70 0 Ultrex Penile Prosthesis - [id number], [id number] FDA Start: 09-14-2018 History of Present [...] finds it beneficial In regards to edema: Rbuin presents with the complaint of edema: Location: [...] Chronic stable, continue same therapy - Aclidinium [place] (Tudorza Pressair) 400 MCG/ACT Aerosol Powder, breath [...] and are negative. documented in this encounter [facility] History of Present illness Narrative 07-05-2020 Heather Rea, MARKUS-DUCK BILL OPERATOR - 07/05/2020 9:00 AM EDTBEmily liz LPN [...] Allergies Allergies Allergen Reactions Nyquil Severe Cold-Flu [Hoixakjdt-Cgwsspkksz-Fo-Apap] Hives and Headache Dust Mite Extract Nasal [...] HAND SURGERY 02/[address] Patrick MA INSERT,INFLATABLE PENILE PROSTHESIS PROSTATECTOMY HEART CATHETERIZATION 2006 [...] Judgment normal. Comments: Negative for sleep disturbance [place] Score - 5 CPAP/BIPAP/APAP Pressure -14 cm H2O Most Recent Sleep Study -PSG 09/22/19 Oxygen Use -4 L at night Patient is benefiting from PAP therapy MARTÍN Griffin Referred it-Tdddsglnfqe-Vzym Symptoms include : Snoring/snorting -No Insomnia-No Waking with gasping/shortness of breath -No Difficulty concentrate- No Waking with headache-No Significant weight change-No Daytime Sleepiness-No Restless legs -No Upcoming surgeries?-No 6 month follow up-Doing good today pressure with machine feels comfortable to him. CURRENT MEDICATIONS: Current Outpatient Medications Medication Sig Dispense Refill Aclidinium [place] (Tudorza Pressair) 400 MCG/ACT Aerosol Powder, breath [...] counseling and coordination of care. GUNJAN Roblero [place] Score - 5 CPAP/BIPAP/APAP Pressure -14 cm H2O Most Recent Sleep Study -PSG 09/22/19 Oxygen Use -4 L at night Patient is benefiting from PAP therapy DME - Naun Griffin Referred wc-Hygoemvtimp-Jxzn Symptoms include : Snoring/snorting -No Insomnia-No Waking with gasping/shortness of breath -No Difficulty concentrate- No Waking with headache-No Significant weight change-No Daytime Sleepiness-No Restless legs -No Upcoming surgeries?-No 6 month follow up-Doing good today pressure with machine feels comfortable to him. documented in this encounter [facility] History of Present illness Narrative 06-25-2020 Rob [...] Chronic stable, continue same therapy - Aclidinium [place] (Tudorza Pressair) 400 MCG/ACT Aerosol Powder, breath [...] and are negative. documented in this encounter [facility] Evaluation note Note Date & Type Note Facility documented in this encounter [facility] Evaluation note Note Date & Type Note Facility documented in this encounter [facility] Evaluation note Note Date & Type Note Facility documented in this encounter [facility] Evaluation note Note Date & Type Note Facility documented in this encounter [facility] Work Phone: Evaluation note Note Date & Type Note Facility documented in this encounter [facility] Work Phone: Evaluation note Note Date & Type Note Facility documented in this encounter [facility] Work Phone: Assessments Diagnosis Sprain of [...] FoundDocuments on File Type Date Recorded Patient Social Work Job Titles Expl anation Advance Directives and Afshin plata Will 09/14/2018 5:58 AM Latest Code Status on File Code Status Date Activated Date Inactivated Comments Full Code 09/14/2018 12:16 PM Documents on File Type Date Recorded Patient Social Work Job Titles Expl anation Advance Directives and Livin g [...] pain, went in to the ER in [place], work up for CA was negative, they then did a dobutamine [...] Dispense: 100 vial; Refill: 3 - Aclidinium [place] (TUDORZA PRESSAIR) 400 MCG/ACT Aerosol Powder, breath [...] 09/15/2018 11:20 AM EDT Pastoral Care Eucharist zoology technical officer visited patient to attend to sacramental needs. Rev. Pilo Salazar M.Div., [facility] Staff Chain Testing Machine Operator, Palliative Care [id number] 09/15/18 1120 Clinical Encounter Type Visit Type Non Crisis Non Crisis Visit Sacrament Visited With Patient Visited By Eucharistic Parachute Repairer Visit Length (minutes) 1-15 Sacramental Encounters Communion Given Indicator No Patient Spiritual Assessment Spiritual Assessed Unable to Assess 09/15/18 1120 Clinical Encounter Type Visit Type Non Crisis Non Crisis Visit Sacrament Visited With Patient Visited By Eucharistic Parachute Repairer Visit Length (minutes) 1-15 Sacramental Encounters Communion Given Indicator No Patient Spiritual Assessment Spiritual Assessed Unable to Assess 09/15/18 1120 Clinical Encounter Type Visit Type Non Crisis Non Crisis Visit Sacrament Visited With Patient Visited By Eucharistic Parachute Repairer Visit Length (minutes) 1-15 Sacramental Encounters Communion Given Indicator No Patient Spiritual Assessment Spiritual Assessed Unable to Assess documented in this encounter* Rob Burns MD - 07/20/2019 10:30 AM EDT Chief Complaint Patient presents with Results Chronic Obstructive Pulmonary Disease Hyperlipidemia Depression Edema Referral Patient would like to discuss getting a new referral for a different Rn Plastic Surgery. HPI: Occasional flutter in chest: happens less [...] Chronic stable, continue same therapy - Aclidinium [place] (Tudorza Pressair) 400 MCG/ACT Aerosol Powder, breath [...] sleep apnea syndrome Will refer to new angle dozer operator - AMB REFERRAL TO PULMONARY 6. Chest [...] pain-no Cough-no Wheezing-sometimes Swelling LE-yes Hemoptysis- no [place] score 6 Most recent sleep study About [...] Outpatient Medications Medication Sig Dispense Refill Aclidinium [place] (Tudorza Pressair) 400 MCG/ACT Aerosol Powder, breath [...] pain-no Cough-no Wheezing-sometimes Swelling LE-yes Hemoptysis- no [place] score 6 Most recent sleep study About 7 years ago CPAP/ BiPAP pressure 13 cmH20 Patient is benefiting from PAP therapy yes [facility] Isabella Oliver Magallon raphael Oxygen use 4 LPM Symptoms [...] Allergies Allergies Allergen Reactions Nyquil Severe Cold-Flu [Ruwmioxbg-Meixacchin-Mh-Apap] Hives and Headache Dust Mite Extract Nasal [...] HAND SURGERY 02/[address] Patrick MA INSERT,INFLATABLE PENILE PROSTHESIS -2009 PROSTATECTOMY HEART CATHETERIZATION [...] file Gets together: Not on file Attends yazdanism service: Not on file Active member of [...] Comments: Negative for sleep disturbance Nursing Assessment [place] score 3 Most recent sleep study- 09/2019 CPAP/ BiPAP pressure 14 cmH20 Patient is benefiting from PAP therapy yes DME [place] Oxygen use 4 LPM at night Symptoms [...] Outpatient Medications Medication Sig Dispense Refill Aclidinium [place] (Tudorza Pressair) 400 MCG/ACT Aerosol Powder, breath [...] pressure 14 cm H2O set up 10/06/2019 [employer] montelukast (Singulair) 10 MG tablet Take 1 [...] - 12/22/2019 9:45 AM EST Nursing Assessment [place] score 3 Most recent sleep study- 09/2019 [...] daily.Dispense: 3 Inhaler; Refill: 1 - Aclidinium [place] (Tudorza Pressair) 400 MCG/ACT Aerosol Powder, breath [...] Chronic stable, continue same therapy - Aclidinium [place] (TUDORZA PRESSAIR) 400 MCG/ACT Aerosol Powder, breath activated inhalation powder; Inhale 1 Units 2 times daily. Dispense: 3 Each; Refill: 1 - budesonide-formoterol (SYMBICORT) 160-4.5 mcg/puff Aerosol inhaler; Inhale 2 puffs 2 times daily.Dispense: 3 Inhaler; Refill: 1 - montelukast (SINGULAIR) 10 MG Tab tablet; Take 1 tablet by mouth daily. Dispense: 90 tablet; Refill: 1 - MA NONINVASV OXYGEN SATUR; SINGLE 2. Major depressive [...] (!) 136.1 kg (300 lb 1.6 oz), FaX120 %. Body mass index is 43.06 kg/m [...] weight loss to improve breathing - Aclidinium [place] (TUDORZA PRESSAIR) 400 MCG/ACT Aerosol Powder, breath [...] daily. Dispense: 90 tablet; Refill: 1 - MA NONINVASV OXYGEN SATUR; SINGLE - CBC, EDIF, [...] sleep apnea syndrome Rob Burns MD [address] [place] [address] Arnold Burgos MD [address] [place] [address] Status Reason Specialty Diagnoses / Procedures Referred By Contact Referred To Contact New Request Diagnoses EDMAR (obstructive sleep apnea) Morbid obesity due to excess calories Chronic obstructive pulmonary disease, unspecified COPD type Procedures SLEEP STUDY - TITRATION Arnold Burgos MD [address] [address] Status Reason Specialty Diagnoses / Procedures Referred By Contact Referred To Contact New Request Diagnoses EDMAR (obstructive sleep apnea) Morbid obesity due to excess calories Chronic obstructive pulmonary disease, unspecified COPD type Procedures SLEEP STUDY - DIAGNOSTIC Arnold Burgos MD [address] [address] Specialty Diagnoses / Procedures Referred By Contac t Referred To Contact Diagnoses Chronic obstructive pulmonary disease, unspecified COPD type Rob Burns MD [address] [place] [address] Referral ID Status Reason Start Date Expiration Date Visits Re quested Visits Authorized [id number] Closed 1 1 Specialty Diagnoses / Procedures Referred By Contac t Referred To Contact Cardiology Diagnoses Encounter for screening for cardiovascular disorders Procedures Abdominal aorta anuerysm (AAA) screening [address] [phone] Referral ID Status Reason Start Date Expiration Date Visits Requested Visits Authorized [id number] Authorized Perform Procedure 12/16/2022 12/16/2023 1 1 Specialty Diagnoses / Procedures Referred By Rai t Referred To Contact Diagnoses Encounter for other preprocedural examination Procedures ECG 12 lead Fozia Knapp, COOK SHORT ORDER-DUCK BILL OPERATOR [address] [place] [address] Referral ID Status Reason Start Date Expiration Date V isits Requested Visits Authorized [id number] Pending Review 02/24/2023 02/24/2024 1 1 Instructions * Patient Instructions* Emily Erickson, NICA - 09/09/2018 4:00 PM EDT Preoperative Medication Instructions In preparation for surgery please continue all of your current medications with the following changes: Rubin Madrid Home Medication Instructions Prior to Surgery GUSTAVO:[id number] Printed on:09/09/18 1622 Medication Information Take last [...] medications that contain aspirin, such as Rebecca Osyka, Pepto-Bismol, Anacin), antiinflammatory medications such as Advil, Motrin, Ibuprofen, Naproxen, Aleve, Rebecca Osyka, Pepto-Bismol, Anacin, Diclofenac, Voltaren, Daypro, Etodolac, Ketoprofen, Piroxicam, Relafen, Nabumetone, etc. Also disc ontinue Vitamin C, Vitamin E, [place]-3 Fatty Acid, Fish Oil or Lovaza, and [...] them to the hospital. Patient Instructions for [facility]: Prior to surgery: Surgeon's office will contact you with the scheduled time of your surgery. You may use the [employer] parking available at the Main Entrance One [...] any makeup or lotions. Remove all nail turkmen for surgeries involving extremities. Please remember to bring both your insurance card and a photo ID with you on the day of surgery. After your surgery: If you are having outpatient surgery - you must have a licensed moving van driver to take you home. The expectation is that this moving van driver will remain at the hospital for [...] DATE CREATED AUTHOR AUTHOR'S ORGANIZ ATION 09/20/2018 [facility] DATE CREATED AUTHOR AUTHOR'S ORGANIZ ATION 10/07/2019 [facility] DATE CREATED AUTHOR AUTHOR'S ORGANIZ ATION 12/21/2020 [facility] DATE CREATED AUTHOR AUTHOR'S ORGANIZ ATION 01/08/2022 [facility] DATE CREATED AUTHOR AUTHOR'S ORGANIZ ATION 01/18/2023 [facility] DATE CREATED AUTHOR AUTHOR'S ORGANIZ ATION 02/25/2023 [facility] [place] DATE CREATED AUTHOR AUTHOR'S ORGANIZ ATION 03/15/2023 [facility] Reason for Visit (unrecogniz ed section and [...] getting a new referral for a different Rn Plastic Surgery. Reason Comments Follow-up Chronic Obstructive Pulmonary Disease Obstructive Sleep Apnea Status Reason Specialty Diagnoses / Procedures Referred By Contact Referred To Contact Closed Pulmonary Disease Diagnoses Chronic obstructive pulmonary disease, unspecified COPD type Obstructive sleep apnea syndrome Rob Burns MD [address] [place] [address] Arnold Burgos MD [address] [place] [address] Reason Comments Daytime Sleepiness Status Reason Specialty Diagnoses / Procedures Referre d By Contact Referred To Contact Closed Diagnoses EDMAR (obstructive sleep apnea) Morbid obesity due to excess calories Chronic obstructive pulmonary disease, unspecified COPD type Procedures SLEEP STUDY - TITRATION Arnold Burgos MD [address] [address] Reason Comments Establish Care Obstructive Sleep Apnea [...] STUDY - DIAGNOSTIC Arnold Burgos MD [address] [address] Reason Comments Results Chronic Obstructive Pulmonary Disease [...] disorders Procedures Abdominal aorta anuerysm (AAA) screening [address] [address] Referral ID Status Reason Start Date Expiration Date Visits Requested Visits Authorized [id number] Authorized Perform Procedure 12/16/2022 12/16/2023 1 1 Specialty Diagnoses / Procedures Referred By Contac t Referred To Contact Diagnoses Encounter for other preprocedural examination Procedures ECG 12 lead Fozia Knapp, COOK SHORT ORDER-DUCK BILL OPERATOR [address] [place] [address] Referral ID Status Reason Start Date Expiration Date V isits Requested Visits Authorized [id number] Pending Review 02/24/2023 02/24/2024 1 1 Wilber Burr MD - 09/14/2018 7:37 AM Migdalia Box PA-C - 08/30/2018 11:22 AM EDT H&P Notes (unrecognized sect ion and content) INTERVAL HISTORY AND PHYSICAL Patient Name: Rubin Madrid Admit Date: [id number] MR #: [id number] : 1955 The H&P has been reviewed and the patient has been examined. I concur with the findings of the H&P. There are no significant changes. It is appropriate to proceed with the planned procedure. Wilber Burr MD 09/14/2018 7:37 AM Patient here for preoperative examination for removal and replacement of penile prosthesis inflatable device. He does have remote history of prostate cancer, [place] 6, which was treated with radical prostatectomy [...] instructions given to patient. Surgery scheduled at [facility]. All questions answered. Post-operative appointment made. Does [...] MG ORAL TABLET (MONTELUKAST SODIUM) New Orders: 99859 OFC.VISIT,EXTENDED [[id number]] Medical Decision-Making Amount/complexity of data to be [...] use of walker. RT staff here at [facility] placing patient on CPAP per Dr. Mittal. Called RT to place patient on CPAP per order after talked with Dr. Gordon about patient. RT staff here at [facility] for breathing treatment as ordered Dr. Burr here at [facility] to talk with patient about surgery. PATIENT NAME: Rubin Madrid : 1955 ADMITTED: [id number] CSN: [id number] DATE. September 14, 2018 PRE-OPERATIVE DIAGNOSIS. Organic [...] Care Teams (unrecognized sec tion and content) Dock Supervisor Relationship Specialty Start Date End Date Fozia Knapp APRN-CNP [address] [place] [address] PCP - General Family Medicine 12/16/22 Dock Supervisor Relationship Specialty Start Date End Date Fozia Knapp APRN-CNP [address] [place] [id number] PCP - General Family Medicine 12/16/22 FOR [...] BE BASED ON THE PRIMARY CLINICAL RECORDS. [employer] [facility]. provides no warranty or guarantee of the accuracy or completeness of information in this document.
[2023-03-23] MEDS: Senna/Docusate Sodium 1 Tablet 2 TABLET PO (21:47)
[2023-03-24] MEDS: oxyCODONE 5 MG Tablet PO (01:04)
[2023-03-24 01:05] VITALS: BP 135/68; PULSE 70; RESP 16; TEMP 36.6; O2SAT 94
[2023-03-24 05:30] VITALS: BP 125/75; PULSE 77; RESP 16; TEMP 36.6; O2SAT 94
[2023-03-24] MEDS: Acetaminophen 500 MG Tablet 1000 MG PO (06:47)
[2023-03-24] MEDS: APIXABAN 2.5 MG TABLET (WCH) PO (06:49)
[2023-03-24 07:13] VITALS: O2SAT 92
--- NOTE | 2023-03-24 07:55 | PN.ORTHO_ITS ---
Subjective Subjective Seen and examined. . Pain controlled. Doing well no complaints denies fevers chills nausea vomiting shortness of breath or chest pain ambulating without difficulty ready to be discharged home Objective Data Objective Data Vital Signs: Vital Signs Temp Pulse Resp BP Pulse Ox O2 Del Method O2 Flow Rate 98 F 77 16 125/75 H 92 Nasal Cannula 5 03/24/23 05:30 03/24/23 05:30 03/24/23 05:30 03/24/23 05:30 03/24/23 07:13 03/24/23 07:13 03/24/23 07:13 Oxygen Flow Rate (L/min) 5 Oxygen Delivery Method Nasal Cannula Weight: 304 lb 9.6 oz Body Mass Index (BMI) 43.7 Intake & Output: Intake and Output for Last 24 Hours 03/22/23 03/23/23 03/24/23 23:59 23:59 23:59 Intake Total 4282.42 / 4282.42 115 / 115 Output Total 700 / 700 Balance 4282.42 / 3682.42 -585 / -585 Lab / Micro Data Micro: Microbiology 03/12/23 13:58 Swab (Method) Nasal Screen MRSA/MSSA - Final Radiography Diagnostic Testing: Radiology Impression Hip X-Ray 03/23/23 11:25 IMPRESSION: Status post left total hip replacement. There is good alignment. Postoperative soft tissue changes. Electronically Signed: Shayne Goldsmith MD at 12:27 EST Reading Location ID and State: [address] [place] [address] , Service support , Physical Exam Const alert and oriented x3 General Appearance: cooperative Extremity Extremity Narrative: Left hip dressing clean dry intact compartments soft neurovascular intact left lower extremity EHL tibialis anterior gastrocsoleus intact sensation to light touch 2 out of 4 pedal pulses Assessment & Plan Assessment/Plan (1) S/P total hip arthroplasty: QUALIFIERS: Laterality: left Qualified Code(s): Z96.642 - Presence of left artificial hip joint PLAN: Plan Postop day #1 left total hip arthroplasty PT OT weightbearing as tolerated DVT prophylaxis SCDs REBEKA Harris Patient is ready for discharge home we will make arrangements after 23 hours of antibiotics and a.m. physical therapy Patient to start schedule physical therapy per already scheduling Follow-up in the office 2 weeks
--- NOTE | 2023-03-24 07:58 | DCINST_ITS ---
Discharge Instructions Diet Discharge Diet: No restrictions (Minimize sweets and carbohydrates as perioperative hyperglycemia can increase risk of infection) Dressing / Incision Call your doctor if you observe: Shortness of breath and Chest pain Additional Dressing/Incision Instructions:: Do not shower 72hrs. Begin daily showering warm water antibacterial soap postop day #3( 72hrs Post-operatively) and then daily. Leave the dressing on for 72 hours postoperatively then may remove prior to first shower and change dressing daily after this until no drainage for 2 consecutive days then may leave open to air. Follow hip precautions that were reviewed in hospital. Wear compression stockings, may remove at night. Start physical therapy as directed in hospital. Follow prescriptions instructions do not take any other pain medication or differ dos ing without consulting your physician. Do not take oral NSAIDs until blood thinner has been completed , then may begin the day after completion if needed . Call Dr. Jordan's office with any concerns. Follow Up Care Please Follow Up With: Robert Jordan DO When: 2 weeks Test Results: Test results from this visit will be discussed in further detail at your follow- up appointment, if applicable. Discharge Plan Admission Admit Date/Time: 03/23/23 11:08 Primary Reason for Your Visit: Left total hip arthroplasty Attending Provider: Robert Jordan Primary Care Provider: LUIS ANGEL RYAN Discharge Orders/Prescriptions Prescriptions: New acetaminophen 500 mg Tablet 1,000 mg PO Q6H Qty: 100 0RF Eliquis 5 mg Tablet 2.5 mg PO BID Qty: 42 0RF oxycodone 5 mg Tablet 5 - 10 mg PO Q4H PRN PRN (Reason: Pain Score 4-10) 7 Days Qty: 60 0RF Continued fluoxetine 20 mg capsule 20 mg PO DAILY Patient Comments: TAKE 1 CAPSULE BY MOUTH ONCE DAILY rosuvastatin 10 mg tablet 10 mg PO DAILY furosemide 20 mg tablet 20 mg PO DAILY Patient Comments: TAKE 1 TABLET BY MOUTH ONCE DAILY potassium chloride 10 mEq tablet,ER particles/crystals 10 meq PO DAILY cholecalciferol (vitamin D3) 125 mcg (5,000 unit) capsule 125 mcg PO DAILY omeprazole 20 mg capsule,delayed release(DR/EC) 20 mg PO DAILY Trelegy Ellipta 100-62.5-25 mcg blister with device 1 inh inhalation DAILY montelukast [Singulair] 10 mg tablet 10 mg PO DAILY Disposition Disposition (needs filled in before D/C Order can be placed): Home, Self Care
[2023-03-24 08:00] VITALS: BP 122/69; PULSE 74; RESP 16; TEMP 36.6; O2SAT 94
[2023-03-24] MEDS: Potassium Chloride Oral Tablet 10 MEQ PO (08:14)
[2023-03-24] MEDS: Cefazolin 3 GM in 0.9% Normal Saline (100mL Bag) 100 ML IV (08:14)
[2023-03-24] MEDS: Furosemide 20 MG Tablet PO (08:14)
[2023-03-24] MEDS: Senna/Docusate Sodium 1 Tablet 2 TABLET PO (08:15)
[2023-03-24] MEDS: Atorvastatin Calcium 20 MG Tablet PO (08:15)
[2023-03-24] MEDS: Pantoprazole Sodium 20 MG Tablet PO (08:15)
[2023-03-24] MEDS: FLUoxetine 20 MG Capsule PO (08:15)
[2023-03-24] MEDS: Montelukast 10 MG Tablet PO (08:16)
[2023-03-24] MEDS: Cholecalciferol (Vit D3) 125 MCG CAPSULE (5,000 UNITS) PO (08:16)
[2023-03-24 08:55] LABS: Hematocrit 38.4 % (40-54); Hemoglobin 12.6 g/dL (13.0-16.5); Mean Corp Hgb Conc 32.8 g/dL (32-36); Mean Corpuscular Hgb 29.9 pg (27.0-32.0); Mean Corpuscular Volume 91.2 fL (80-94); Mean Platelet Vol. 10.2 fl (6.2-12.0); Platelet Count 345 K/mm3 (150-450); RBC Distribution Width CV 11.9 % (11.6-14.6); RBC Distribution Width SD 39.8 fl (35.1-43.9); Red Blood Count 4.21 M/mm3 (4.6-6.2); White Blood Count 16.2 K/mm3 (4.4-11.0)
[2023-03-24 10:16] LABS: Anion Gap 1 (5-15); BUN 21 mg/dL (7-18); BUN/Creat Ratio 26.8 RATIO (10-20); Calcium,Total 8.6 mg/dL (8.5-10.1); Chloride 106 mmol/L (98-107); Creatinine, Serum 0.78 mg/dL (0.70-1.30); EST Glomerular Filtration Rate 105 mL/min (>60); Est Glom Filt Rate - Afr Amer 127 mL/min (>60); Estimated Creatinine Clearance 128.99 ml/min; Glucose 166 mg/dL (74-106); Potassium 4.4 mmol/L (3.5-5.1); Sodium Level 135 mmol/L (136-145)
--- NOTE | 2023-03-24 10:54 | PHA.DC_ITS ---
Pharmacy [facility] Service has performed discharge medication reconciliation and counseling for this patient. This [facility] spoke to Minnie in retail. Rx for apixaban was written as 5mg tab 2.5mg PO BID #42. She called Dr. Jordan and clarified 2.5mg BID x 21 days (#42). Patient requested meds to beds, Rx student called and requested delivery. 1. ACETAMINOPHEN 1000MG PO Q6 2. APIXABAN 2.5MG PO BID 3. OXYCODONE 5-10MG PO Q4H PRN PAIN The patient's discharge medication list was reviewed for discrepancies and discrepancies were resolved. The patient was counseled on the following discharge medications and changes in medications for homegoing were reviewed. The Reason for Use, instructions for use, and potential side effects were review ed for all new medications. The patient's questions regarding all of their medications were answered. The patient was able to verbally demonstrate an understanding of their discharge medications. Patient counseled by on call pharmacy technicianDarnell. Medications at Discharge Home Medications cholecalciferol (vitamin D3) 125 mcg (5,000 unit) capsule 125 mcg PO DAILY 02/19/22 fluoxetine 20 mg capsule 20 mg PO DAILY 02/19/22 furosemide 20 mg tablet 20 mg PO DAILY 02/19/22 omeprazole 20 mg capsule,delayed release 20 mg PO DAILY 02/19/22 potassium chloride 10 mEq tablet,extended release(part/cryst) 10 meq PO DAILY 02/19/22 rosuvastatin 10 mg tablet 10 mg PO DAILY 02/19/22 fluticasone fur. 100 mcg-umeclid 62.5 mcg-vilant 25 mcg inhalat.powder (Trelegy Ellipta) 1 inh inhalation DAILY 02/17/23 montelukast 10 mg tablet (Singulair) 10 mg PO DAILY 03/09/23 acetaminophen 500 mg tablet 1,000 mg (2 x 500 mg) PO Q6H #100 tabs 03/24/23 apixaban 5 mg tablet (Eliquis) 2.5 mg (1/2 x 5 mg) PO BID #42 tabs 03/24/23 oxycodone 5 mg tablet 5 - 10 mg (1 - 2 x 5 mg) PO Q4H PRN PRN Pain Score 4-10 7 days #60 tabs 03/24/23
--- NOTE | 2023-03-24 11:00 | CASEMGMT ---
DAVY BALDWIN Face to Face with patient for initial transition planning/care coordination assessment. RN DENNY introduced self and role at [facility]. Patient sitting in chair, alert and oriented. Patient willing to participate in assessment and is able to answer all questions appropriately. Care providers, pharmacy, and demographics verified. Patient wishes to discharge home and has outpatient therapy at in [place]. Patient states he has no further needs or concerns at this time. CM to follow for discharge planning needs that may arise. PCP: [facility] Specialists: felipe Jordan; Hilda, dentist private practice; Preferred Pharmacy: [facility] Insurance: [facility] Prescription Benefit: yes Living Will/HPOA: none LNOK: son Living Arrangements: Patient lives with sons in a 2 story home with bed and bath on first floor, 3 steps and railing to enter the home. Patient was independent at home. Transportation: son DME/HHC: Patient has raised toilet, hip kit, walker, cpap, pulse ox, and home oxygen at through [facility]. No previous HHC or SNF. Patient to start outpatient therapy on Wednesday at in [place] at 1130 Disposition Plan: Patient to discharge home with outpatient therapy, family support, and follow-up plans in place. Lexie BLAKE, RN, CM
[2023-03-24 11:34] VITALS: O2SAT 93
== END 2023-03-24 12:25 | disposition home or self-care (01) ==
LOC: SDC 12:27 → MS3 12:27
PROVIDERS: Anesthesiology; Admitting Provider Orthopaedic Surgery; PCP Nurse Practitioner Primary Care; Referring Provider Orthopaedic Surgery; Visit Provider Orthopaedic Surgery
PROC: 8E0Y0CZ Robotic Assisted Procedure of Lower Extremity, Open Approach (ICD-10-PCS; CPT 27130; principal; 2023-03-23 07:30)
DX: M87.052 Idiopathic aseptic necrosis of left femur (principal); J44.9 Chronic obstructive pulmonary disease, unspecified; G47.30 Sleep apnea, unspecified; Z79.899 Other long term (current) drug therapy; E66.9 Obesity, unspecified; K21.9 Gastro-esophageal reflux disease without esophagitis
CPT/HCPCS: 27130; S2900; 01214; 36415; 73502; 80048; 82962; 82985; 83036; 83735; 85027; 85730; 86850; 86900; 86901; 87081; 88305; 88311; 94640; 94668; 94762; 96361; 96365; 96366; 96375; 97162; 97166; 97530; 99221; C1713; C1776; J7030; J7120; A4216; G0378; J2405; J3475

== ENCOUNTER → 2023-11-02 | Outpatient (CLI) | payer MEDICARE, SELFPAY ==
--- NOTE | 2023-11-02 07:10 | CT_ITS ---
STUDY: CT CHEST WITHOUT CONTRAST REASON FOR EXAM: Male, 67 years old. NODULE RADIATION DOSAGE (If Supplied By Facility): CTDIvol = ( 19.44 ) mGy, DLP = ( 777.24 ) mGycm TECHNIQUE: Transaxial imaging was performed without the administration of intravenous contrast material. Multiplanar coronal and sagittal images were reformatted. Individualized dose optimization techniques were used for this CT. COMPARISON: Comparison is made with prior study dated October 22, 2022. FINDINGS: CHEST Hyperinflation. Emphysematous changes. Progressive bullous changes in the left upper lobe with new area of the irregular pleural-based nodular densities with findings suggestive scarring and bronchiectasis. The largest nodular density measures 1.2 cm. This is seen anterior aspect of the left upper lobe. Stable 8 mm fissural nodule as seen on axial image #72 in the anterior right lower lobe. There is no demonstrated pleural abnormality. There are calcifications of the coronary arteries. There are small lymph nodes within the mediastinum, which are normal in size and morphology most compatible with reactive lymph hyperplasia. Normal hilar regions. Normal unenhanced pulmonary arteries. There is atherosclerotic calcification of the aortic arch. There are multi-level degenerative changes of the thoracic spine. There is no demonstrated abnormality of the visualized upper abdomen. CT/Chest without Contrast IMPRESSION: Stable nodular density in the anterior aspect of the right lower lobe adjacent to the right major fissure. Interval development of progressive bullous changes in the left upper lobe with the pleural-based areas of nodular densities in the peripheral aspect of the left upper lobe suggestive of scarring. A neoplastic process cannot be excluded. Correlation with PET scan recommended. Electronically Signed: Shayne Goldsmith MD at 10:42 EDT ,
== END | disposition home or self-care (01) ==
LOC: CT 07:08
PROVIDERS: PCP Nurse Practitioner Primary Care; Referring Provider Internal Medicine Pulmonary Disease; Visit Provider Internal Medicine Pulmonary Disease
DX: R91.1 Solitary pulmonary nodule (principal)
CPT/HCPCS: 71250

== ENCOUNTER → 2023-12-28 | Outpatient (CLI) | payer MEDICARE, SELFPAY ==
--- NOTE | 2023-12-28 07:00 | PET_ITS ---
EXAMINATION: FDG-PET/CT ? INDICATIONS: 68-year-old male with a history of pulmonary nodularity. ? COMPARISON EXAMINATION: CT of the chest report dated 11/02/2023. ? INDEX LESION SIZE SUV INTERPRETATION Left upper lateral lung field, left upper lobe 12.7 mm 5.6 Fulfills quantitative criteria for viable neoplasm, histopathologic analysis is recommended ? Left upper lateral lung field, linear ? 1.6 max Quantitative criteria for viable neoplasm are fulfilled ? TECHNIQUE: Following the intravenous administration of 12.29 mCi of F-18 deoxyglucose via the left hand, multiplanar image acquisitions of the head, neck, chest, abdomen and pelvis to the level of the midthigh, obtained at one-hour post radiopharmaceutical administration contemporaneously interpreted with the current CT of the chest, abdomen and pelvis dated 12/28/[address] of the chest report dated 11/02/2023 via coregistration reveal: ? SERUM GLUCOSE LEVEL:? 83 mg/dL? HEIGHT:?? 72 inches WEIGHT:?? 326 pounds ? FINDINGS: ? HEAD/NECK:? There is no evidence of abnormal increased glucose metabolism in the pharyngeal mucosal space, parapharyngeal space, oropharynx, bilateral-lateral and anterior neck, hypopharynx and distribution of the larynx. ? The visualized portion of the cerebral cortical-subcortical structures demonstrate symmetric and preserved glucose metabolism. ? CHEST:? A nodular focus of enhanced glucose metabolism is identified in the left mid lateral lung zone, left upper lobe. The calculated standard uptake value is 5.6. The maximal axial diameter of the metabolic, morphologic abnormality is 12.7 mm. A linear increase in radiopharmaceutical concentration noted adjacent to the right hypermetabolic pulmonary nodule. The calculated standard uptake value is 1.6. The left ventricular myocardium visualization is consistent with the fed state. ? CT of the chest demonstrates the following anatomic characteristics: Emphysematous changes are defined in the bilateral upper-mid lung zones. Right and left axillary soft tissue densities are ametabolic. Mediastinal soft tissue densities demonstrate no evidence of increased tracer uptake. ? ABDOMEN/PELVIS:? There is asymmetric increased uptake noted in the left quadratus lumborum and erector spinae musculature.Normal physiologic distribution of the radiopharmaceutical is identified in the hepatic and splenic parenchyma, both renal units, urinary bladder, and visualized intestinal tract. ? CT of the abdomen and pelvis is remarkable for the following: Atherosclerotic calcification is defined in the abdominal aorta without evidence of dilatation, aneurysm formation. Pelvic arterial calcification is observed. An external genitalia prosthetic device is demonstrated. Cyst formation is noted in the left kidney. Fat-containing bilateral inguinal hernias are demonstrated. Right and left inguinal soft tissue densities demonstrate no evidence of quantitatively significant increased FDG uptake. ? SKELETAL:? There is no evidence of quantitatively significant enhanced glucose metabolism on meticulous inspection of the appendicular and axial skeletal structures. A left hip arthroplasty is demonstrated. ? Degenerative changes defined in the thoracic and lumbar spine demonstrate no evidence of increased glucose metabolism. There are no sclerotic, mixed sclerotic-lytic, or primarily lytic changes defined in the axial skeletal structures with evidence of increased FDG uptake. ? PET/PET/CT Tumor Base -Thigh Init IMPRESSION: 1. Increased FDG concentration defined in the left upper lateral lung field, left upper lobe fulfills quantitative criteria for malignant transformation. Histopathologic investigation is recommended.? 2. The linear increased radiopharmaceutical concentration defined in the left upper lateral lung field does not fulfill quantitative criteria for neoplasm. Electronic Signature Jay Garcia D.O. Accurate Quantification of SUVs for this report are calculated using the exclusive [employer] Technology. ([place]. Patent No. [phone] B2 [phone] [place] patent [phone]). Standardization and correction of the FDG SUV metric via [employer] technology allow for vendor non-specific objective quantitative examination comparison and optimization of the sensitivity and specificity of the FDG PET-CT examination. [email or web address] Electronically Signed: Jay Garcia DO at 22:58 EST ,
== END | disposition home or self-care (01) ==
LOC: ONC 06:48
PROVIDERS: PCP Nurse Practitioner Primary Care; Referring Provider Internal Medicine Pulmonary Disease; Visit Provider Internal Medicine Pulmonary Disease
DX: R91.1 Solitary pulmonary nodule (principal)
CPT/HCPCS: 78815; A9552

== ENCOUNTER 2024-01-27 10:18 | Inpatient (IN) | payer MEDICARE, SELFPAY ==
[2024-01-27] VITALS (20 sets, daily range): BP systolic 115–190; BP diastolic 55–86; PULSE 73–88; RESP 16–23; TEMP 36.4–36.6; O2SAT 92–100; BMI 46.5
--- NOTE | 2024-01-27 10:42 | ED.RN ---
PT PLACED ON NON-REBREATHER
--- NOTE | 2024-01-27 10:46 | EKG12_ITS ---
Test Reason : SOB Blood Pressure : */* mmHG Vent. Rate : 69 BPM Atrial Rate : 69 BPM P-R Int : 154 ms QRS Dur : 86 ms QT Int : 428 ms P-R-T Axes : 15 -15 49 degrees QTcB Int : 458 ms Normal sinus rhythm Low voltage QRS Nonspecific ST and T wave abnormality Abnormal ECG Confirmed by SHELLY RICHMOND, BK ([id number]), development editor DONNIE WONG ([id number]) on 02/02/2024 1:23:51 P M Referred By: Confirmed By: BK BRAVO MD
[2024-01-27 11:24] LABS: AST(SGOT) 15 U/L (15-37); Alanine Aminotransfer ALT/SGPT 21 U/L (16-61); Albumin, Serum 3.4 g/dL (3.2-5.0); Alkaline Phosphatase 86 U/L (45-117); Anion Gap 3 (5-15); BUN 15 mg/dL (7-18); BUN/Creat Ratio 17.5 RATIO (10-20); Calcium,Total 8.7 mg/dL (8.5-10.1); Chloride 112 mmol/L (98-107); Creatinine, Serum 0.86 mg/dL (0.70-1.30); EST Glomerular Filtration Rate 95 mL/min (>60); Est Glom Filt Rate - Afr Amer 115 mL/min (>60); Estimated Creatinine Clearance 122.62 ml/min; Globulin 3.3 g/dL (2.2-4.2); Glucose 112 mg/dL (74-106); Potassium 3.8 mmol/L (3.5-5.1); Protein, Total 6.7 g/dL (6.4-8.2); Sodium Level 142 mmol/L (136-145); Troponin-I HS (w/2H Reflex) 5 pg/mL (3.0-78.0)
--- NOTE | 2024-01-27 12:50 | RAD_ITS ---
STUDY: X-RAY CHEST REASON FOR EXAM: Male, 68 years old. PTX TECHNIQUE: Inspiration and expiration views. COMPARISON: Comparison is made with prior study done earlier today at 10:00 AM. FINDINGS: Persistent left subcutaneous emphysema overlying the left chest wall. Tiny residual left apical pneumothorax. Interval improvement in the aeration of the left upper lobe. RAD/Chest PA and Lateral IMPRESSION: Persistent left subcutaneous emphysema. Minimal residual left apical pneumothorax and improved aeration of the left upper lobe. Electronically Signed: Shayne Goldsmith MD at 13:12 EST ,
--- NOTE | 2024-01-27 12:50 | ED.VIS.DYS ---
HPI History of Present Illness Chief Complaint: Shortness of Breath [facility] Medical History Ambulates with cane Arthritis Avascular necrosis of bone of left hip Cardiology follow-up encounter CPAP (continuous positive airway pressure) dependence Depression Former smoker Gastric reflux Hx of bacterial pneumonia Left hip pain Wears glasses Home Medications ?Medication ?Instructions ?Recorded ?Last Taken ?Type cholecalciferol (vitamin D3) 125 125 mcg PO DAILY 02/19/22 01/27/24 History mcg (5,000 unit) capsule fluoxetine 20 mg capsule 20 mg PO DAILY 02/19/22 01/27/24 History furosemide 20 mg tablet 20 mg PO BID 02/19/22 01/27/24 History omeprazole 20 mg capsule,delayed 20 mg PO DAILY 02/19/22 01/27/24 History release potassium chloride 10 mEq 10 meq PO BID 02/19/22 01/27/24 History tablet,extended release(part/cryst) rosuvastatin 10 mg tablet 10 mg PO DAILY 02/19/22 01/27/24 History fluticasone fur. 100 mcg-umeclid 1 inh inhalation DAILY 02/17/23 01/27/24 History 62.5 mcg-vilant 25 mcg inhalat.powder (Trelegy Ellipta) montelukast 10 mg tablet 10 mg PO DAILY 03/09/23 01/27/24 History (Singulair) guaifenesin 1,200 mg tablet, 1,200 mg PO Q12H PRN seasonal 01/27/24 Unknown History extended release 12 hr (Mucinex) allergy congestion Allergy/AdvReac Type Severity Reaction Status Date / Time dextromethorphan (From Allergy Severe wheezing, Verified 05/03/23 08:52 NyQuil) hives doxylamine (From NyQuil) Allergy Severe wheezing, Verified 05/03/23 08:52 hives pseudoephedrine (From NyQuil) Allergy Severe wheezing, Verified 05/03/23 08:52 hives adhesive tape (tape) AdvReac Severe Blisters Verified 05/03/23 08:52 Surgical History History of cardiac catheterization History of carpal tunnel release of both wrists History of repair of anterior cruciate ligament of left knee Hx of prostatectomy Social History Smoking Status: Former smoker alcohol intake: never EXAM Physical Exam Const Vital Signs: 01/27/24 10:19 01/27/24 10:23 01/27/24 10:40 Temperature 98 F 98 F Temperature Source Temporal Temporal Pulse Rate 77 74 Respiratory Rate 18 18 Respiratory Effort Short of Breath Blood Pressure 115/64 115/64 Blood Pressure Mean 81 81 Pulse Ox 97 96 Oxygen Delivery Method Room Air Room Air Non-Rebreather 01/27/24 11:23 01/27/24 12:00 01/27/24 12:00 Temperature 98 F 98 F Temperature Source Temporal Temporal Pulse Rate 74 74 73 Respiratory Rate 16 16 16 Respiratory Effort Blood Pressure 148/75 H 148/75 H 163/86 H Blood Pressure Mean 99 99 111 Pulse Ox 100 100 99 Oxygen Delivery Method Room Air Room Air MDM MDM MDM Narrative Medical decision making narrative: HISTORY OF PRESENT ILLNESS: 68-year-old male presents with shortness of breath and chest pain. 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 Per the RN patient was undergoing a CT-guided biopsy when there is a complication namely a pneumothorax on the left side. Patient was initially stable then began to drop his blood pressures. THis was concerned so brought him to ED for further evaluation. Patient notes left-sided chest pain at the needle insertion site. The patient denies recent surgery in the last 4 weeks or immobilization in the last 3 days, denies previous diagnosis of DVT or PE, hemoptysis, unilateral leg swelling or malignancy with treatment the last 6 months or palliative. No estrogen use noted. REVIEW OF SYSTEMS: Pertinent positives: Shortness of breath, chest pain Pertinent negatives: Syncope, fever cough PHYSICAL EXAM: Nursing triage notes reviewed, Vital signs reviewed Constitutional: please see mdm HENT: MMM Eyes: Pupils equal round and reactive to light, Extraocular muscles intact Neck: No stridor, no JVD, full neck ROM Lungs: Coarse breath sounds throughout, slight diminished breath sounds on the left, s. No increased work of breathing, no conversational dyspnea, no accessory muscle use, no nasal flaring. No respiratory distress noted, crepitus noted to left side of the chest and left axillary region Heart: Regular rate and rhythm, No murmurs, No rubs and No gallops, 2+ distal pulses (radial, femoral, posterior tibial) in all extremities Abdomen: Soft, there is no tenderness, rigidity, rebound or guarding, no obvious peritoneal signs, no palpable pulsatile abdominal masses, no auscultated abdominal bruit : No CVAT Extremities: No edema Neuro: No new focal neurological deficits, cranial nerves II through XII intact, 5/5 strength in all present extremities. Intact sensation to light touch in all present extremities, 2+ reflexes bilateral patella tendons. Skin: No rash or lesions noted MEDICAL DECISION MAKING: Chief Complaint: Short of breath, chest pain External records reviewed: Reviewed prior imaging. 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 Higgins), General Surgery (Dr. Roland) MDM Narrative: Patient was initially hemodynamically stable, afebrile and nontoxic-appearing. No signs of tension pneumothorax. There is no indication for chest tube placement this time as pneumothorax was relatively small. ALL IMAGES (IF OBTAINED) HAVE BEEN PERSONALLY REVIEWED AND INTERPRETED BY MYSELF. EKG with normal sinus rhythm rate of 69, left axis deviation, normal QTc of 458, no STEMI CMP without evidence of acute kidney injury, significant electrolyte abnormality, anion gap to suggest end organ hypo-perfusion, no evidence of metabolic acidosis with a normal bicarbonate, no evidence of hepatobiliary obstructive pathology. CBC without leukocytosis, severe anemia, no thrombocytopenia. Repeat chest x-ray here in the ED s was read, interpreted myself showed small left apical pneumo thorax we will keep the patient nonrebreather and admit. The synthesis of the patient's history suggest pneumothorax. The patient and/or family, caregivers express understanding. The patient and/or family, caregivers agrees with the plan. Shared decision making: I will have a discussion with the patient and or visitors regarding risk/benefits of further testing or admission. They will be made aware of of the risk/benefits inherent in this decision they will be given the opportunity to voice understanding. Total critical care time today provided was at least 0 minutes. This excludes separately billable procedures. Critical care time (if documented) is secondary to the patient having high probability of clinically significant/life threatening deterioration in the patient's condition which required my urgent intervention. Impression: 1. Acute Pneumothorax 2. Hx of COPD Dispo: admit to OBS This note was generated with Snap[employer] dictation software. It may contain incorrect words, spelling, and punctuation that were not noted in review of the chart prior to signing. Lab Data Labs: Laboratory Results - last 24 hr 01/27/24 10:30 Sodium 142 Potassium 3.8 Chloride 112 H Carbon Dioxide 27.0 Anion Gap 3 L BUN 15 Creatinine 0.86 Estim Creat Clear Calc 122.62 Est GFR (MDRD) Af Amer 115 Est GFR (MDRD) Non-Af 95 BUN/Creatinine Ratio 17.5 Glucose 112 H Calcium 8.7 Total Bilirubin 0.60 AST 15 ALT 21 Alkaline Phosphatase 86 Troponin I High Sens 5 Total Protein 6.7 Albumin 3.4 Globulin 3.3 Albumin/Globulin Ratio 1.0 Discharge Plan Triage Chief Complaint: Shortness of Breath ED Provider: Parish Garcia Dx/Rx/DC Orders Prescriptions: No Action fluoxetine 20 mg capsule 20 mg PO DAILY rosuvastatin 10 mg tablet 10 mg PO DAILY furosemide 20 mg tablet 20 mg PO BID Patient Comments: TAKE 1 TABLET BY MOUTH ONCE DAILY potassium chloride 10 mEq tablet,ER particles/crystals 10 meq PO BID cholecalciferol (vitamin D3) 125 mcg (5,000 unit) capsule 125 mcg PO DAILY omeprazole 20 mg capsule,delayed release(DR/EC) 20 mg PO DAILY Trelegy Ellipta 100-62.5-25 mcg blister with device 1 inh inhalation DAILY montelukast [Singulair] 10 mg tablet 10 mg PO DAILY guaifenesin [Mucinex] 1,200 mg tablet extended release 12hr 1,200 mg PO Q12H PRN (Reason: seasonal allergy congestion) Primary Care Provider: LUIS ANGEL RYAN Referrals: LUIS ANGEL RYAN CRNP [Primary Care Provider] - Print Language: Cuban
[2024-01-27 13:03] LABS: Hematocrit 43.9 % (40-54); Hemoglobin 14.1 g/dL (13.0-16.5); Mean Corp Hgb Conc 32.1 g/dL (32-36); Mean Corpuscular Hgb 29.2 pg (27.0-32.0); Mean Corpuscular Volume 90.9 fL (80-94); Mean Platelet Vol. 10.9 fl (6.2-12.0); Platelet Count 339 K/mm3 (150-450); RBC Distribution Width CV 12.5 % (11.6-14.6); RBC Distribution Width SD 41.6 fl (35.1-43.9); Red Blood Count 4.83 M/mm3 (4.6-6.2)
--- NOTE | 2024-01-27 13:53 | ED.RN ---
Dr. darling at bedside to see increase in subQ air around left eye.
--- NOTE | 2024-01-27 14:56 | PCM.HP.STD ---
HPI - General General Date of Admission: 01/27/24 Date of Service: 01/27/24 Chief Complaint: Left pneumothorax HPI Narrative RUBIN MADRID, is a 68 M who presents to the emergency room at [facility] after being transferred from interventional radiology, patient had been undergoing a left upper lobe lung biopsy via CT, after the procedure was over with there was noted to be a 10% pneumothorax. Patient is not currently on any oxygen as an outpatient except at night, he does have a history of COPD and is class III obese. Patient complained of some left-sided chest pain. He also complained about some swelling over the left neck area and left facial area. X-rays obtained showed a persistent left subcutaneous emphysema with minimal residual left apical pneumothorax and improved aeration of the left upper lobe. Labs showed a normal white blood cell count and normal hemoglobin, patient's CHEM panel was unremarkable. Palpation of the patient's left chest wall revealed feelings of subcu emphysema. Patient did not appear to be in any distress Patient was placed on a nonrebreather after his procedure in interventional radiology and at the time of my examination, I asked the nursing staff to change him to nasal cannula oxygen. I do not have a baseline pulse ox reading on room air or on a lower oxygen setting. Patient will be placed in observation status on MedSurg 3, supplemental oxygen will be administered and his chest x-ray will be repeated tomorrow. [facility] Medical History Ambulates with cane Arthritis Avascular necrosis of bone of left hip Cardiology follow-up encounter CPAP (continuous positive airway pressure) dependence Depression Former smoker Gastric reflux Hx of bacterial pneumonia Left hip pain Wears glasses Home Medications ?Medication ?Instructions ?Recorded ?Last Taken ?Type cholecalciferol (vitamin D3) 125 125 mcg PO DAILY 02/19/22 01/27/24 History mcg (5,000 unit) capsule fluoxetine 20 mg capsule 20 mg PO DAILY 02/19/22 01/27/24 History furosemide 20 mg tablet 20 mg PO BID 02/19/22 01/27/24 History omeprazole 20 mg capsule,delayed 20 mg PO DAILY 02/19/22 01/27/24 History release potassium chloride 10 mEq 10 meq PO BID 02/19/22 01/27/24 History tablet,extended release(part/cryst) rosuvastatin 10 mg tablet 10 mg PO DAILY 02/19/22 01/27/24 History fluticasone fur. 100 mcg-umeclid 1 inh inhalation DAILY 02/17/23 01/27/24 History 62.5 mcg-vilant 25 mcg inhalat.powder (Trelegy Ellipta) montelukast 10 mg tablet 10 mg PO DAILY 03/09/23 01/27/24 History (Singulair) guaifenesin 1,200 mg tablet, 1,200 mg PO Q12H PRN seasonal 01/27/24 Unknown History extended release 12 hr (Mucinex) allergy congestion Allergy/AdvReac Type Severity Reaction Status Date / Time dextromethorphan (From Allergy Severe wheezing, Verified 05/03/23 08:52 NyQuil) hives doxylamine (From NyQuil) Allergy Severe wheezing, Verified 05/03/23 08:52 hives pseudoephedrine (From NyQuil) Allergy Severe wheezing, Verified 05/03/23 08:52 hives adhesive tape (tape) AdvReac Severe Blisters Verified 05/03/23 08:52 Surgical History History of cardiac catheterization History of carpal tunnel release of both wrists History of repair of anterior cruciate ligament of left knee Hx of prostatectomy Social History Smoking Status: Former smoker alcohol intake: never ROS Constitutional Constitutional: Denies anorexia, change in weight, chills, fatigue, fever(s), night sweats or weakness Eyes Eyes: Denies blurry vision, change in vision, discharge from eye(s) or eye pain ENT HEENT: Reports other Details: Patient complains of swelling of the left side of his neck extending into the left lower facial area Cardiovascular Cardiovascular: Reports chest pain; Denies claudication, edema or palpitations Respiratory/Chest Respiratory/Chest: Denies cough, hemoptysis, shortness of breath at rest or shortness of breath with exertion Gastrointestinal Gastrointestinal: Denies abdominal pain, constipation, diarrhea, hematemesis, hematochezia, melena, nausea or vomiting Genitourinary Genitourinary: Denies dysuria, hematuria, urinary frequency, urinary hesitancy, urinary incontinence or urinary urgency Musculoskeletal Musculoskeletal: Denies back pain, joint pain, joint stiffness, joint swelling, myalgias or neck pain Neurologic Neurologic: Denies abnormal gait, abnormal speech, dizziness, focal weakness, headache(s), loss of vision, numbness, other visual disturbances, paresthesias, syncope or tingling Psychiatric Psychiatric: Denies anxiety, cognitive impairment, depression, irritability, mood swings or suicidal ideation Endocrine Endocrinology: Denies change in body appearance, cold intolerance, excessive sweating, heat intolerance, polydipsia or polyuria Hematologic/Lymphatic Hematologic/Lymphatic: Denies none, anemia, easy bleeding, easy bruising or lymphadenopathy Allergic/Immunologic Allergic/Immunologic: Denies rhinitis, urticaria, eczemia or asthma Vital Signs Vital Signs Vital Signs: 01/27/24 10:19 01/27/24 10:23 01/27/24 10:40 Temperature 98 F 98 F Temperature Source Temporal Temporal Pulse Rate 77 74 Respiratory Rate 18 18 Respiratory Effort Short of Breath Blood Pressure 115/64 115/64 Blood Pressure Mean 81 81 Pulse Ox 97 96 Oxygen Delivery Method Room Air Room Air Non-Rebreather Oxygen Flow Rate (L/min) 01/27/24 11:23 01/27/24 12:00 01/27/24 12:00 Temperature 98 F 98 F Temperature Source Temporal Temporal Pulse Rate 74 74 73 Respiratory Rate 16 16 16 Respiratory Effort Blood Pressure 148/75 H 148/75 H 163/86 H Blood Pressure Mean 99 99 111 Pulse Ox 100 100 99 Oxygen Delivery Method Room Air Room Air Oxygen Flow Rate (L/min) 01/27/24 13:00 01/27/24 13:00 01/27/24 13:54 Temperature 98 F Temperature Source Temporal Pulse Rate 74 73 Respiratory Rate 16 16 Respiratory Effort Blood Pressure 148/75 H 190/79 H Blood Pressure Mean 99 116 Pulse Ox 100 100 97 Oxygen Delivery Method Room Air Non-Rebreather @ 15L/min Nasal Cannula Oxygen Flow Rate (L/min) 4 01/27/24 14:00 01/27/24 14:45 Temperature 97.5 F L 97.8 F Temperature Source Temporal Pulse Rate 76 81 Respiratory Rate 22 H 20 H Respiratory Effort Blood Pressure 149/73 H 138/74 H Blood Pressure Mean 98 95 Pulse Ox 96 92 Oxygen Delivery Method Nasal Cannula Oxygen Flow Rate (L/min) 4 Weight Weight: 147 kg Body Mass Index (BMI) 46.5 Physical Exam Const alert, oriented x3 and no apparent distress Constitutional Narrative: Patient has class III obesity General Appearance: cooperative, well kempt and well developed Orientation / Consciousness: awake, oriented to person, oriented to place and oriented to time HEENT normocephalic, head/scalp atraumatic, hearing grossly normal bilaterally and moist oral mucous membranes Eyes PERRL, EOMs intact bilaterally and conjunctivae normal Neck supple, no JVD, thyroid normal and no carotid bruits General: trachea midline Resp normal respiratory effort, no retractions, no use of accessory muscles and clear to auscultation bilaterally Resp Narrative: There is crepitance noted on palpation of the left upper chest wall extending into the left lower neck area Auscultation: Negative for rales, rhonchi or wheezes Cardio regular rate, regular rhythm, no murmurs, no rub and no gallops GI normal to inspection, nondistended, normoactive bowel sounds, soft to palpation, non-tender and non-distended Extremity Extremity Narrative: Patient has generalized lower leg edema bilaterally Skin no rashes or lesions noted General Skin Exam: no breakdown Neuro oriented x3, CN's II-XII intact bilaterally, moves all extremities, no focal motor deficits and no sensory deficits noted Sensorium / Orientation: awake and alert Speech: speech normal Psych affect normal Results Lab / Micro Data 01/27/24 10:30 01/27/24 10:30 Labs: Laboratory Results - last 24 hr 01/27/24 10:30: WBC 8.0, RBC 4.83, Hgb 14.1, Hct 43.9, MCV 90.9, MCH 29.2, MCHC 32.1, RDW Std Deviation 41.6, RDW Coeff of Montez 12.5, Plt Count 339, MPV 10.9, Sodium 142, Potassium 3.8, Chloride 112 H, Carbon Dioxide 27.0, Anion Gap 3 L, BUN 15, Creatinine 0.86, Estim Creat Clear Calc 122.62, Est GFR (MDRD) Af Amer 115, Est GFR (MDRD) Non-Af 95, BUN/Creatinine Ratio 17.5, Glucose 112 H, Calcium 8.7, Total Bilirubin 0.60, AST 15, ALT 21, Alkaline Phosphatase 86, Troponin I High Sens 5, Total Protein 6.7, Albumin 3.4, Globulin 3.3, Albumin/Globulin Ratio 1.0 Imaging Radiology Impression Chest X-Ray 01/27/24 12:50 IMPRESSION: Persistent left subcutaneous emphysema. Minimal residual left apical pneumothorax and improved aeration of the left upper lobe. Electronically Signed: Shayne Goldsmith MD at 13:12 EST , Assessment & Plan Assessment/Plan (1) COPD (chronic obstructive pulmonary disease): PLAN: Plan 1. Left apical pneumothorax-patient will remain on oxygen, he will be placed in observation status on MedSurg 3, chest x-ray will be repeated tomorrow. #2 chronic obstructive pulmonary disease-patient will be placed on as needed aerosol treatments #3 left upper lung nodule-etiology unclear #4 obstructive sleep apnea-patient will need to refrain from using BiPAP tonight in the hospital #5 GERD-patient is on omeprazole, this will be continued Total clinical time spent by myself addressing the patient's medical issues, reviewing all of his data, and collaborating with patient's care team: 55-minutes Charges/Coding Visit Charges Inpatient E&M: 71354 Init Hosp L2
--- NOTE | 2024-01-27 18:00 | RAD_ITS ---
STUDY: X-RAY CHEST REASON FOR EXAM: Male, 68 years old. pnuemothorax -- exp upright TECHNIQUE: Single frontal view of the chest. COMPARISON: January 27, 2024 FINDINGS: Subcutaneous abscess in the left chest. Mild interstitial infiltrates of the left. Questionable minute left apical pneumothorax Normal size heart. Normal mediastinum and richardson. Normal visualized pulmonary arteries. Normal visualized aortic arch and descending thoracic aorta. Normal visualized thoracic spine. Normal visualized ribs, clavicles, and shoulders. There is no demonstrated abnormality of the visualized soft tissue structures of the upper abdomen. RAD/Chest 1 View IMPRESSION: Less than interstitial infiltrates. Extensive subcutaneous emphysema limits sensitivity. Questionable minute left apical pneumothorax unchanged. Electronically Signed: Jose Camp MD at 20:11 EST ,
--- NOTE | 2024-01-27 18:19 | NURSING ---
Arrived from [facility]. Dr. Roland at bedside to place chest tube. Pt conversing appropriately. SPO2 98-100% NRB
--- NOTE | 2024-01-27 19:15 | RAD_ITS ---
STUDY: X-RAY CHEST REASON FOR EXAM: Male, 68 years old. Chest tube placement TECHNIQUE: Single frontal view of the chest. COMPARISON: 7:16 PM today FINDINGS: Left chest tube has been withdrawn 4.5 cm and appears to terminate in medially pleural cavity. Extensive subcutaneous gas. Minute left apical pneumothorax appears less conspicuous. Left upper lobe interstitial infiltrate unchanged. There is no demonstrated pleural abnormality. Normal size heart. Normal mediastinum and richardson. Normal visualized pulmonary arteries. Normal visualized aortic arch and descending thoracic aorta. Normal visualized thoracic spine. Normal visualized ribs, clavicles, and shoulders. There is no demonstrated abnormality of the visualized soft tissue structures of the upper abdomen. RAD/Chest 1 View (Portable) IMPRESSION: Left chest tube is withdrawn slightly. Extensive subcutaneous gas. Left apical pneumothorax less conspicuous. Electronically Signed: Jose Camp MD at 21:31 EST ,
--- NOTE | 2024-01-27 19:35 | RAD_ITS ---
STUDY: X-RAY CHEST REASON FOR EXAM: Male, 68 years old. CHEST TUBE PLACEMENT 2 TECHNIQUE: Single frontal view of the chest. COMPARISON: January 27, 2024, 556 PM FINDINGS: Left chest tube has been withdrawn 4 cm. Minute left apical pneumothorax less conspicuous. Small left upper lobe interstitial infiltrate. Subcutaneous gas left greater than right chest. There is no demonstrated pleural abnormality. Normal size heart. Normal mediastinum and richardson. Normal visualized pulmonary arteries. Normal visualized aortic arch and descending thoracic aorta. Normal visualized thoracic spine. Normal visualized ribs, clavicles, and shoulders. There is no demonstrated abnormality of the visualized soft tissue structures of the upper abdomen. RAD/Chest 1 View (Portable) IMPRESSION: Left chest tube is been withdrawn slightly. Small left apical pneumothorax less conspicuous. Extensive subcutaneous gas. Stable small left upper lobe infiltrate. Electronically Signed: Jose Camp MD at 21:35 EST ,
--- NOTE | 2024-01-27 19:54 | OP.PCM_ITS ---
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 The insertion site was selected by identifying the intercostal space in the midaxillary line along the inframammary crease. The chest wall was then locally anesthetized with total volume 20 mL Xylocaine. A scalpel was used to incise the skin with an approximately 3 cm transverse incision. Blunt dissection was used to spread the subcutaneous tissue and underlying intercostal muscle fibers (additional local anesthetic was given prior to entering the chest wall). Then through controlled pressure a Flores clamp was used to access the pleural cavity. This tract was bluntly spread open and the clamp chest tube was placed into the pleural cavity. There was immediate return of air but no bloody drainage. Afterward the tube was connected to the Pleur-evac collection device via a downsized double-sided Madhu tree connector. This connection was reinforced with the use of white electrical tape. The Pleur-evac was connected to wall suction with a chest tube suction of -20 cmH2O. There an intermittent 2 column air leak. Chest tube was then tied in with 0 silk suture. The site was dressed with petroleum gauze and regular gauze to pad the skin against the chest tube and this dressing was taped in place with a mesentery at the distal portion of the chest tube to allow for limited movement. A post-procedure chest x-ray was obtained to confirm tube position which showed the tube to be somewhat redundant with a dependent loop so I sought to decrease some of this access tube within the pleural cavity and took down my dressings and affixing suture and reposition the chest tube 6 cm shallower. The tube was then resecured at the chest wall with another 0 silk suture and the dressing was redone using a [place] of petroleum gauze, regular gauze, and Elastoplast Surgical Findings: ? Significant subcutaneous emphysema adding to already thick chest wall such that it was approximately 8 cm to patient's true chest wall from the skin surface ? Final chest tube placement positioned inferiorly and extending upwards after impacting the mediastinum Complications Complications: No
--- NOTE | 2024-01-27 20:03 | CON.PCM.SX_ITS ---
Assessment & Plan Assessment/Plan (1) Pneumothorax of left lung after biopsy: PLAN: Patient is a 68-year-old male with left iatrogenic pneumothorax after percutaneous lung biopsy earlier today. He required placement of emergent left thoracostomy tube after developing progressive subcutaneous emphysema and concern for this negatively impacting his airway. This chest tube placement was completed by me and full details are given in a separate operative report. Will continue to follow patient closely. Patient has been instructed on the use of splinting to try to cough productively. He is already enacted with conservative measures on 100% oxygen. Please continue him on suction via his Pleur-evac at - 20 cm of water and monitor chest tube for any displacement from the chest wall, kinking, or separation from the Pleur-evac system. Will continue to follow. Plan for repeat chest x-ray in the a.m. but please notify surgery of any changes immediately. Garett Roland MD General Surgery Endocrine Surgery Pager: [facility] [address] [place] [address], [facility], [address] [place] [address] Office: [phone] HPI Consult Data Date of Consult: 01/27/24 HPI Narrative Reason for Consultation: Emergent chest tube placement HPI Narrative: RUBIN MADRID, is a 68 M who presented to [facility] ER after undergoing a percutaneous lung biopsy with radiology earlier today. Patient sustained a postprocedural iatrogenic pneumothorax on the left side but subsequent imaging with both chest x-ray and CT showed it to be on the order of a 10 to 15% pneumothorax and no chest tube was felt to be necessary. I was notified at this time about patient's presents but initially hospitalist service elected to proceed with admission and felt patient should be able to be managed conservatively. Then approximately 1800 I was notified by hospitalist service that floor nursing on the [facility] floor observed significant facial changes related to progressive subcutaneous emphysema and there was concern for this potentially threatening patient's airway. Patient was moved to the ICU where I met him unable to see without forcing his eyes open. He denied any present shortness of breath. [facility] Medical History (Updated 01/27/24 @ 20:[address] Garett Roland MD) Wears glasses Depression Arthritis Gastric reflux CPAP (continuous positive airway pressure) dependence Former smoker Cardiology follow-up encounter Avascular necrosis of bone of left hip Left hip pain Hx of bacterial pneumonia Home Medications ?Medication ?Instructions ?Recorded ?Last Taken ?Type cholecalciferol (vitamin D3) 125 125 mcg PO DAILY 02/19/22 01/27/24 History mcg (5,000 unit) capsule fluoxetine 20 mg capsule 20 mg PO DAILY 02/19/22 01/27/24 History furosemide 20 mg tablet 20 mg PO BID 02/19/22 01/27/24 History omeprazole 20 mg capsule,delayed 20 mg PO DAILY 02/19/22 01/27/24 History release potassium chloride 10 mEq 10 meq PO BID 02/19/22 01/27/24 History tablet,extended release(part/cryst) rosuvastatin 10 mg tablet 10 mg PO DAILY 02/19/22 01/27/24 History fluticasone fur. 100 mcg-umeclid 1 inh inhalation DAILY 02/17/23 01/27/24 History 62.5 mcg-vilant 25 mcg inhalat.powder (Trelegy Ellipta) montelukast 10 mg tablet 10 mg PO DAILY 03/09/23 01/27/24 History (Singulair) guaifenesin 1,200 mg tablet, 1,200 mg PO Q12H PRN seasonal 01/27/24 Unknown History extended release 12 hr (Mucinex) allergy congestion Allergy/AdvReac Type Severity Reaction Status Date / Time dextromethorphan (From Allergy Severe wheezing, Verified 05/03/23 08:52 NyQuil) hives doxylamine (From NyQuil) Allergy Severe wheezing, Verified 05/03/23 08:52 hives pseudoephedrine (From NyQuil) Allergy Severe wheezing, Verified 05/03/23 08:52 hives adhesive tape (tape) AdvReac Severe Blisters Verified 05/03/23 08:52 Surgical History History of cardiac catheterization History of carpal tunnel release of both wrists Hx of prostatectomy History of repair of anterior cruciate ligament of left knee Social History Smoking Status: Former smoker alcohol intake: never Physical Exam Const alert and well nourished Constitutional Narrative: Mild distress Neck Neck Narrative: Subcutaneous emphysema extending along the anterior neck up over both orbits Chest Chest Narrative: Extensive subcutaneous emphysematous changes along the bilateral chest moseley but more prominently figured over the left chest where anteriorly and superiorly there was evidence of prior percutaneous lung biopsy. Resp Resp Narrative: Mildly tachypneic Effort and Inspection: able to speak in complete sentences Lab / Micro Data 01/27/24 10:30 01/27/24 10:30 Labs: Laboratory Results - last 24 hr 01/27/24 10:30: WBC 8.0, RBC 4.83, Hgb 14.1, Hct 43.9, MCV 90.9, MCH 29.2, MCHC 32.1, RDW Std Deviation 41.6, RDW Coeff of Montez 12.5, Plt Count 339, MPV 10.9, Sodium 142, Potassium 3.8, Chloride 112 H, Carbon Dioxide 27.0, Anion Gap 3 L, BUN 15, Creatinine 0.86, Estim Creat Clear Calc 122.62, Est GFR (MDRD) Af Amer 115, Est GFR (MDRD) Non-Af 95, BUN/Creatinine Ratio 17.5, Glucose 112 H, Calcium 8.7, Total Bilirubin 0.60, AST 15, ALT 21, Alkaline Phosphatase 86, Troponin I High Sens 5, Total Protein 6.7, Albumin 3.4, Globulin 3.3, Albumin/Globulin Ratio 1.0 Imaging Radiology Impression Chest X-Ray 01/27/24 12:50 IMPRESSION: Persistent left subcutaneous emphysema. Minimal residual left apical pneumothorax and improved aeration of the left upper lobe. Electronically Signed: Shayne Goldsmith MD at 13:12 EST ,
[2024-01-27] MEDS: Acetaminophen 325 MG Tablet 650 MG PO (20:08)
[2024-01-27] MEDS: Furosemide 20 MG Tablet PO (20:23)
[2024-01-27] MEDS: Potassium Chloride Oral Tablet 10 MEQ PO (20:23)
--- NOTE | 2024-01-27 21:41 | NURSING ---
Dr. Roland called up to the floor to check on patient status. This RN spoke with Dr. Roland and let him know that there was more bubbling in the air leak chamber but still not quite continuous. There are brief pauses in the bubbling. The connection is still hooked up appropriately and well secured.
[2024-01-28] VITALS (25 sets, daily range): BP systolic 116–165; BP diastolic 60–103; PULSE 74–87; RESP 12–22; TEMP 36.2–36.8; O2SAT 93–98; BMI 46.0
[2024-01-28] MEDS: Acetaminophen 325 MG Tablet 650 MG PO ×2 (02:13→20:10)
[2024-01-28] MEDS: Morphine 2 MG/ML Syringe IV (04:20)
--- NOTE | 2024-01-28 06:15 | RAD_ITS ---
STUDY: X-RAY CHEST REASON FOR EXAM: Male, 68 years old. s/p Left CT for PTX w subQ air TECHNIQUE: Single AP portable view of the chest. COMPARISON: Comparison is made with prior study dated January 27, 2024 at 7:18 PM. FINDINGS: A left-sided chest tube is seen with the tip along the inferior medial aspect of the left hemithorax. EKG electrodes are seen. There is evidence of a subcutaneous emphysema overlying the chest wall with right length worse on the left side. No significant pneumothorax is seen. Blunting of the left costophrenic angle. Normal size heart. Normal mediastinum and richardson. Normal visualized pulmonary arteries. There is atherosclerotic calcification of the aortic arch with tortuosity. Normal visualized thoracic spine. Normal visualized ribs, clavicles, and shoulders. There is no demonstrated abnormality of the visualized soft tissue structures of the upper abdomen. RAD/Chest 1 View (Portable) IMPRESSION: The tip of the left-sided chest tube is seen overlying the medial aspect of the left lung base. Persistent bilateral subcutaneous emphysema. No definite pneumothorax Electronically Signed: Shayne Goldsmith MD at 8:13 EST ,
--- NOTE | 2024-01-28 08:03 | PN.SURG_ITS ---
Subjective Subjective Patient seen and examined during AM rounds. He reports that he is seen better out of his left eye. He denies any respiratory difficulty but has remained on supplemental oxygenation to try to facilitate displacement of his subcutaneous emphysema. He denies any discomfort from his chest tube but does share that he had a panic attack when he was being repositioned earlier this morning. Objective Data Objective Data Vital Signs: Vital Signs Temp Pulse Resp BP Pulse Ox O2 Del Method O2 Flow Rate 97.6 F L 77 20 H 126/70 H 96 High Flow 8 01/28/24 06:00 01/28/24 07:00 01/28/24 07:00 01/28/24 07:00 01/28/24 07:00 01/28/24 07:00 01/28/24 07:00 FiO2 100 01/27/24 17:58 Oxygen Flow Rate (L/min) 8 Oxygen Delivery Method High Flow Weight: 321 lb 3.416 oz Body Mass Index (BMI) 46.0 Lab / Micro Data 01/27/24 10:30 01/27/24 10:30 Labs: Laboratory Results - last 24 hr 01/27/24 10:30: WBC 8.0, RBC 4.83, Hgb 14.1, Hct 43.9, MCV 90.9, MCH 29.2, MCHC 32.1, RDW Std Deviation 41.6, RDW Coeff of Montez 12.5, Plt Count 339, MPV 10.9, Sodium 142, Potassium 3.8, Chloride 112 H, Carbon Dioxide 27.0, Anion Gap 3 L, BUN 15, Creatinine 0.86, Estim Creat Clear Calc 122.62, Est GFR (MDRD) Af Amer 115, Est GFR (MDRD) Non-Af 95, BUN/Creatinine Ratio 17.5, Glucose 112 H, Calcium 8.7, Total Bilirubin 0.60, AST 15, ALT 21, Alkaline Phosphatase 86, Troponin I High Sens 5, Total Protein 6.7, Albumin 3.4, Globulin 3.3, Albumin/Globulin Ratio 1.0 Radiography Diagnostic Testing: Radiology Impression Chest X-Ray 01/27/24 12:50 IMPRESSION: Persistent left subcutaneous emphysema. Minimal residual left apical pneumothorax and improved aeration of the left upper lobe. Electronically Signed: Shayne Goldsmith MD at 13:12 EST , Chest X-Ray 01/27/24 18:00 IMPRESSION: Less than interstitial infiltrates. Extensive subcutaneous emphysema limits sensitivity. Questionable minute left apical pneumothorax unchanged. Electronically Signed: Jose Camp MD at 20:11 EST Reading Location ID and State: [facility] / [place] Tel , Service support , Chest X-Ray 01/27/24 19:15 IMPRESSION: Left chest tube is withdrawn slightly. Extensive subcutaneous gas. Left apical pneumothorax less conspicuous. Electronically Signed: Jose Camp MD at 21:31 EST Reading Location ID and State: [address] [place] [address] Tel , Service support , Chest X-Ray 01/27/24 19:35 IMPRESSION: Left chest tube is been withdrawn slightly. Small left apical pneumothorax less conspicuous. Extensive subcutaneous gas. Stable small left upper lobe infiltrate. Electronically Signed: Jose Camp MD at 21:35 EST Reading Location ID and State: [address] [place] [address] Tel , Service support , Physical Exam Const oriented x3 and no apparent distress Resp normal respiratory effort Resp Narrative: Patient with respiratory status unchanged. Chest tube remains to suction at -20 cm of water. There is a intermittent 1-2 column air leak. When I interrogate this air leak there is a portion of it that seems to be coming through the chest tube connection to the Pleur-evac tubing. This is despite taking down the taping and trying to fit that connection tighter. There is also a scant amount of drainage to the Pleur-evac system now with serosanguineous drainage. Patient's subcutaneous emphysema is markedly improved across his left chest wall, anterior neck, and onto his face. A much greater degree persists on the right side. Assessment & Plan Assessment/Plan (1) Pneumothorax of left lung after biopsy: PLAN: Patient seen and examined following left chest tube placement yesterday. He remained stable for his respiratory status and improved for subcutaneous air. Unfortunately, his air leak does not seem diminished just yet. I have encouraged him to keep coughing and deep breathing as well as start supplementing with protein. After I been able to review his pre and postprocedural CT imaging I am concerned about his ability to seal this long given the depth of the biopsy through bullous emphysematous changes. I believe we should be looking for tertiary transfer for thoracic surgery attention if this issue persists beyond the weekend. This was discussed with patient's primary hospitalist, Dr. Howell. For now recommend: ? Continue suction at -20 cmH2O ? Maintain vigilance for any kinking of the chest tube ? Daily chest x-rays ? Supplemental oxygen therapy ? Protein supplementation Garett Roland MD General Surgery Endocrine Surgery Pager: [facility] [address] [place] [address], [address] [place] [address] Office: [phone] (2) Subcutaneous emphysema after procedure: Charges/Coding Visit Charges Inpatient E&M: 86946 Subs Hosp L2
[2024-01-28] MEDS: Potassium Chloride Oral Tablet 10 MEQ PO ×2 (08:53→20:10)
[2024-01-28] MEDS: Furosemide 20 MG Tablet PO ×2 (08:53→20:10)
[2024-01-28] MEDS: Pantoprazole Sodium 20 MG Tablet PO (08:53)
--- NOTE | 2024-01-28 08:57 | PCM.PN.HOSP ---
Subjective Subjective Had to have a chest tube placed in his left lung for the pneumothorax that he has subcu emphysema extending into his face and eyelids Objective Data Objective Data Vital Signs: Vital Signs Temp Pulse Resp BP Pulse Ox O2 Del Method O2 Flow Rate 97.6 F L 78 17 127/86 H 96 High Flow 8 01/28/24 06:00 01/28/24 08:00 01/28/24 08:00 01/28/24 08:00 01/28/24 08:00 01/28/24 08:00 01/28/24 08:00 FiO2 100 01/27/24 17:58 Oxygen Flow Rate (L/min) 8 Oxygen Delivery Method High Flow Weight: 321 lb 3.416 oz Body Mass Index (BMI) 46.0 Lab / Micro Data 01/27/24 10:30 01/27/24 10:30 Labs: Laboratory Results - last 24 hr 01/27/24 10:30: WBC 8.0, RBC 4.83, Hgb 14.1, Hct 43.9, MCV 90.9, MCH 29.2, MCHC 32.1, RDW Std Deviation 41.6, RDW Coeff of Montez 12.5, Plt Count 339, MPV 10.9, Sodium 142, Potassium 3.8, Chloride 112 H, Carbon Dioxide 27.0, Anion Gap 3 L, BUN 15, Creatinine 0.86, Estim Creat Clear Calc 122.62, Est GFR (MDRD) Af Amer 115, Est GFR (MDRD) Non-Af 95, BUN/Creatinine Ratio 17.5, Glucose 112 H, Calcium 8.7, Total Bilirubin 0.60, AST 15, ALT 21, Alkaline Phosphatase 86, Troponin I High Sens 5, Total Protein 6.7, Albumin 3.4, Globulin 3.3, Albumin/Globulin Ratio 1.0 Radiography Diagnostic Testing: Radiology Impression Chest X-Ray 01/27/24 12:50 IMPRESSION: Persistent left subcutaneous emphysema. Minimal residual left apical pneumothorax and improved aeration of the left upper lobe. Electronically Signed: Shayne Goldsmith MD at 13:12 EST , Chest X-Ray 01/27/24 18:00 IMPRESSION: Less than interstitial infiltrates. Extensive subcutaneous emphysema limits sensitivity. Questionable minute left apical pneumothorax unchanged. Electronically Signed: Jose Camp MD at 20:11 EST Reading Location ID and State: [address] [place] [address] Tel , Service support , Chest X-Ray 01/27/24 19:15 IMPRESSION: Left chest tube is withdrawn slightly. Extensive subcutaneous gas. Left apical pneumothorax less conspicuous. Electronically Signed: Jose Camp MD at 21:31 EST Reading Location ID and State: [facility] / [place] Tel , Service support , Chest X-Ray 01/27/24 19:35 IMPRESSION: Left chest tube is been withdrawn slightly. Small left apical pneumothorax less conspicuous. Extensive subcutaneous gas. Stable small left upper lobe infiltrate. Electronically Signed: Jose Camp MD at 21:35 EST Reading Location ID and State: [address] [place] [address] Tel , Service support , Chest X-Ray 01/28/24 06:15 IMPRESSION: The tip of the left-sided chest tube is seen overlying the medial aspect of the left lung base. Persistent bilateral subcutaneous emphysema. No definite pneumothorax Electronically Signed: Shayne Goldsmith MD at 8:13 EST , Physical Exam Narrative General: Alert, Oriented x3, Cooperative, No apparent distress HEENT: Atraumatic, PERRLA, EOMI, Normocephalic Oral: Moist Mucosa Neck: Supple, No JVD Lungs: Diminished, Normal air movement, No rhonchi, No wheeze, No rales, subcutaneous air on his left chest and face, chest tube with no air leak Cardiovascular: Regular rate, Regular Rhythm, Normal S1, Normal S2, No murmurs Abdomen: Soft, Non Tender, Non-Distended, No Hepato-splenomegaly Extremities: No edema, Capillary Refill Less than 3 Seconds Skin: No rashes, No breakdown Musculoskeletal: No Tenderness to Palpation of Joints or Extremities Neurological: No focal neurological deficits, Motor Exam 5/5 strength throughout, Sensory exam intact to light touch and pain Psych/Mental Status: Normal Affect, Appropriate Assessment & Plan Assessment/Plan (1) Pneumothorax of left lung after biopsy: PLAN: Plan 1. Pneumothorax after lung biopsy/COPD ? Patient with an extensive smoking history and COPD presented to the hospital for a lung biopsy ended up having a 10% pneumothorax. ? Overnight had be moved to the ICU secondary to significant subcutaneous emphysema extending into his face preventing him from opening his eyes. Surgery was able to place a chest tube in the left ? Continue with an air leak ? Appreciate surgery's assistance with chest tube management over the weekend ? Continue with home inhalers 2. Essential HTN/HLD ? Continue with his home medications ? Will monitor make adjustments as necessary 3. GERD ? Stable ? Continue with PPI DVT: SCDs Charges/Coding Visit Charges Inpatient E&M: 96361 Subs Hosp L2
--- NOTE | 2024-01-28 09:33 | CASEMGMT ---
Social Work Per admitting RN, pt stating he does not have advance directives in place and is not interested in obtaining information at this time. EITAN Rodriguez
--- NOTE | 2024-01-28 10:07 | CASEMGMT ---
DAVY BALDWIN Assessment: Face to Face with pt for initial transition planning/care coordination assessment. RN DENNY introduced self and role at [facility], pt voices understanding and consents to assessment. Pt is A&O x4 and answers all questions appropriately at this time. Pt lying in bed in no distress. Care providers, pharmacy, and demographics verified/updated. Strata: 1 Admitting Dx: L Apical Pneumothorax PCP: [facility] Specialists: Radha Gorman; Hilda Pulmonolgy [facility]acy[facility] Insurance: [facility] Prescription Benefit: yes LNOK: Lazarus Mckeon Living Arrangements: Pt lives with son in a 2 story home with 3 steps to enter. ADLs: Pt states I at baseline. Transportation: Pt drives self and denies concerns with transportation. DME: walker, CPAP, Pulse ox, cane, crutches[facility] H[facility]/SNF: Denies Hx of. Pt states no concerns with going home at time of dc. Pt states no further concerns/needs. CM to follow. Advised pt to ask CM if any further question/concerns/needs arise, voices understanding. Pt Goal: TBD Plan: TBD, follow therapy for recommendations. Follow for changes in 02, currently only wears O2 HS. Estrella BHATTI CM
--- NOTE | 2024-01-28 10:21 | CASEMGMT ---
Addendum entered by Clau Degroot 01/28/24 11:44: DAVY BALDWIN into pt room, pt states has a concentrator and portable tank that he is able to have someone bring in at time of DC if needed. Original Note: DAVY BALDWIN Assessment: Face to Face with pt for initial transition planning/care coordination assessment. DAVY BALDWIN introduced self and role at [facility], pt voices understanding and consents to assessment. Pt is A&O x4 and answers all questions appropriately at this time. Pt lying in bed in no distress. Care providers, pharmacy, and demographics verified/updated. Strata: 1 Admitting Dx: L Apical Pneumothorax PCP: [facility] Specialists: Radha Gorman; Sibsherie, Pulmonolgy [facility]acy: [facility] Insurance: [employer] Prescription Benefit: yes LNOK: SonLazarus Living Arrangements: Pt lives with son in a 2 story home with 3 steps to enter. ADLs: Pt states I at baseline. Transportation: Pt drives self and denies concerns with transportation. DME: walker, CPAP, Pulse ox, cane, crutches, O2 HS through [facility]. HHC/SNF: Denies Hx of. Pt states no concerns with going home at time of dc. Pt states no further concerns/needs. CM to follow. Advised pt to ask CM if any further question/concerns/needs arise, voices understanding. Pt Goal: TBD Plan: TBD, follow plan of care. Follow for changes in 02, currently only wears O2 HS. Estrella BHATTI CM
[2024-01-28] MEDS: Ensure Plus High Protein 120 ML LIQUID PO (18:02)
[2024-01-28] MEDS: Temazepam 15 MG Capsule PO (20:10)
[2024-01-29] VITALS (24 sets, daily range): BP systolic 92–150; BP diastolic 55–87; PULSE 76–113; RESP 15–30; TEMP 36.6–37.3; O2SAT 90–95; BMI 46.0
[2024-01-29 05:35] LABS: Anion Gap 5 (5-15); BUN 20 mg/dL (7-18); BUN/Creat Ratio 31.2 RATIO (10-20); Calcium,Total 8.8 mg/dL (8.5-10.1); Chloride 106 mmol/L (98-107); Creatinine, Serum 0.64 mg/dL (0.70-1.30); EST Glomerular Filtration Rate 133 mL/min (>60); Est Glom Filt Rate - Afr Amer 161 mL/min (>60); Estimated Creatinine Clearance 131.14 ml/min; Glucose 110 mg/dL (74-106); Potassium 3.7 mmol/L (3.5-5.1); Sodium Level 137 mmol/L (136-145)
[2024-01-29 05:52] LABS: Absolute Lymphocyte Count 1.24 X10^3/uL (0.83-4.51); Absolute Neutrophil Count 6.4 X10^3/uL (2.0-7.7); Basophil# 0.03 X10^3/uL; Basophil% 0.3 % (0-1); Eosinophil# 0.27 X10^3/uL; Eosinophils% 3.1 % (0-5); Hematocrit 41.4 % (40-54); Hemoglobin 13.5 g/dL (13.0-16.5); Lymphocyte # 1.24 X10^3/ul (0.83-4.51); Lymphocyte % 14.1 % (19-41); Mean Corp Hgb Conc 32.6 g/dL (32-36); Mean Corpuscular Hgb 29.4 pg (27.0-32.0); Mean Corpuscular Volume 90.2 fL (80-94); Mean Platelet Vol. 10.5 fl (6.2-12.0); Monocyte# 0.84 X10^3/uL; Monocyte% 9.5 % (0-10); NRBC Flagged by Analyzer 0 % (0-5); Neutrophil # 6.41 X10^3/uL (2.7-7.7); Neutrophil % 72.8 % (47-70); Platelet Count 288 K/mm3 (150-450); RBC Distribution Width CV 12.3 % (11.6-14.6); Red Blood Count 4.59 M/mm3 (4.6-6.2); White Blood Count 8.8 K/mm3 (4.4-11.0)
--- NOTE | 2024-01-29 07:35 | RAD_ITS ---
EXAM: XR CHEST, 1 VIEW CLINICAL INDICATION: Evaluate pneumothorax. TECHNIQUE: Frontal view of the chest. COMPARISON: 01/28/2024. FINDINGS: LUNGS AND PLEURAL SPACES: See below. HEART: Unremarkable. Cardiac silhouette not enlarged. MEDIASTINUM: Central airways and mediastinal contour are unremarkable. BONES/JOINTS: Unremarkable. No acute fracture. SOFT TISSUES: Soft tissue air emphysema in the left axilla and left lateral chest wall. TUBES, LINES AND DEVICES: A left chest tube drain in place. No suspicious pneumothorax. Linear scarring in the left upper lobe. RAD/Chest 1 View (Portable) IMPRESSION: 1. No pneumothorax or acute cardiopulmonary pathology. 2. Linear scarring in the left upper lobe. 3. Soft tissue air emphysema in the left axilla and left lateral chest wall. 4. No significant interval change. Electronically Signed: Johny Montague MD at 11:03 EST ,
--- NOTE | 2024-01-29 08:00 | PN.SURG_ITS ---
Subjective Subjective Patient reports that he is able to see now as his emphysema in his face is resolving Objective Data Objective Data Vital Signs: Vital Signs Temp Pulse Resp BP Pulse Ox O2 Del Method O2 Flow Rate 98.1 F 84 16 125/73 H 95 High Flow 4 01/29/24 06:00 01/29/24 07:00 01/29/24 07:00 01/29/24 07:00 01/29/24 07:00 01/29/24 07:00 01/29/24 07:00 FiO2 97 01/28/24 13:09 Oxygen Flow Rate (L/min) 4 Oxygen Delivery Method High Flow Weight: 321 lb 6.943 oz Body Mass Index (BMI) 46.0 Intake & Output: Intake and Output for Last 24 Hours 01/27/24 01/28/24 01/29/24 23:59 23:59 23:59 Intake Total 1999 Output Total 820 / 1130 335 / 335 Balance 1180 / 870 -335 / -335 Lab / Micro Data 01/29/24 04:45 01/29/24 04:45 Labs: Laboratory Results - last 24 hr 01/29/24 04:45: WBC 8.8, RBC 4.59 L, Hgb 13.5, Hct 41.4, MCV 90.2, MCH 29.4, MCHC 32.6, RDW Std Deviation 41.0, RDW Coeff of Montez 12.3, Plt Count 288, MPV 10.5, Immature Gran % (Auto) 0.200, Neut % (Auto) 72.8 H, Lymph % (Auto) 14.1 L, [place] % (Auto) 9.5, Eos % (Auto) 3.1, Baso % (Auto) 0.3, Absolute Neuts (auto) 6.4, Absolute Lymphs (auto) 1.24, Nucleated RBC % 0, Sodium 137, Potassium 3.7, Chloride 106, Carbon Dioxide 26.0, Anion Gap 5, BUN 20 H, Creatinine 0.64 L, Estim Creat Clear Calc 131.14, Est GFR (MDRD) Af Amer 161, Est GFR (MDRD) Non-Af 133, BUN/Creatinine Ratio 31.2 H, Glucose 110 H, Calcium 8.8 Radiography Diagnostic Testing: Radiology Impression Chest X-Ray 01/28/24 06:15 IMPRESSION: The tip of the left-sided chest tube is seen overlying the medial aspect of the left lung base. Persistent bilateral subcutaneous emphysema. No definite pneumothorax Electronically Signed: Shayne Goldsmith MD at 8:13 EST , Physical Exam Const oriented x3 and no apparent distress Resp normal respiratory effort Resp Narrative: Crepitus in the bilateral upper chest GI soft to palpation and non-tender Assessment & Plan Assessment/Plan (1) Subcutaneous emphysema after procedure: (2) Pneumothorax of left lung after biopsy: PLAN: Plan The patient still has a large air leak. If the patient's airleak does not start to decrease in the next 24 hours I would recommend transfer to a tertiary center with a thoracic surgeon. Vinay Bennett MD Pager: [facility] [address] [place] [address], [address] [place] [address] Office:
[2024-01-29] MEDS: Potassium Chloride Oral Tablet 10 MEQ PO ×2 (09:11→21:16)
[2024-01-29] MEDS: Furosemide 20 MG Tablet PO ×2 (09:11→21:16)
[2024-01-29] MEDS: Pantoprazole Sodium 20 MG Tablet PO (09:11)
[2024-01-29] MEDS: Ensure Plus High Protein 120 ML LIQUID PO (09:14)
[2024-01-29] MEDS: Montelukast 10 MG Tablet PO (09:14)
[2024-01-29] MEDS: FLUoxetine 20 MG Capsule PO (09:14)
--- NOTE | 2024-01-29 11:44 | PCM.PN.HOSP ---
Reason for Visit Reason for Visit: Diagnoses Chronic obstructive pulmonary disease, unspecified (01/27/24) Postprocedural pneumothorax (01/27/24) Emphysema (subcutaneous) resulting from a procedure, initial encounter (01/27/24) Subjective Subjective Saw patient at bedside this afternoon. Laying back comfortably in bed, in no acute distress. Feels that the emphysema in his face and chest is resolving well. Tolerating the chest tube with minimal pain. No other acute concerns. Objective Data Objective Data Vital Signs: Vital Signs Temp Pulse Resp BP Pulse Ox O2 Del Method O2 Flow Rate 98 F 84 18 109/60 95 High Flow 4 01/29/24 08:00 01/29/24 09:00 01/29/24 09:00 01/29/24 09:00 01/29/24 09:00 01/29/24 09:00 01/29/24 09:00 FiO2 97 01/28/24 13:09 Oxygen Flow Rate (L/min) 4 Oxygen Delivery Method High Flow Weight: 145.8 kg Body Mass Index (BMI) 46.0 Intake & Output: Intake and Output for Last 24 Hours 01/27/24 01/28/24 01/29/24 23:59 23:59 23:59 Intake Total 1999 / 1999 Output Total 820 / 1130 535 / 535 Balance 1180 / 870 -535 / -535 Lab / Micro Data 01/29/24 04:45 01/29/24 04:45 Labs: Laboratory Results - last 24 hr 01/29/24 04:45: WBC 8.8, RBC 4.59 L, Hgb 13.5, Hct 41.4, MCV 90.2, MCH 29.4, MCHC 32.6, RDW Std Deviation 41.0, RDW Coeff of Montez 12.3, Plt Count 288, MPV 10.5, Immature Gran % (Auto) 0.200, Neut % (Auto) 72.8 H, Lymph % (Auto) 14.1 L, [place] % (Auto) 9.5, Eos % (Auto) 3.1, Baso % (Auto) 0.3, Absolute Neuts (auto) 6.4, Absolute Lymphs (auto) 1.24, Nucleated RBC % 0, Sodium 137, Potassium 3.7, Chloride 106, Carbon Dioxide 26.0, Anion Gap 5, BUN 20 H, Creatinine 0.64 L, Estim Creat Clear Calc 131.14, Est GFR (MDRD) Af Amer 161, Est GFR (MDRD) Non-Af 133, BUN/Creatinine Ratio 31.2 H, Glucose 110 H, Calcium 8.8 Radiography Diagnostic Testing: Radiology Impression Chest X-Ray 01/29/24 07:35 IMPRESSION: 1. No pneumothorax or acute cardiopulmonary pathology. 2. Linear scarring in the left upper lobe. 3. Soft tissue air emphysema in the left axilla and left lateral chest wall. 4. No significant interval change. Electronically Signed: Johny Montague MD at 11:03 EST , Physical Exam Const alert, oriented x3 and no apparent distress Constitutional Narrative: Elderly male, class III obesity, mildly fatigued appearing, otherwise laying back comfortably in bed, conversing normally, no acute distress. General Appearance: cooperative and comfortable HEENT normocephalic, head/scalp atraumatic, hearing grossly normal bilaterally and nasal mucous membranes and turbinates normal Eyes PERRL, EOMs intact bilaterally and conjunctivae normal Neck full ROM Chest Chest Narrative: Chest tube in place in the upper left lateral chest to axillary area with bandages in place. Stable. Resp normal respiratory effort and no use of accessory muscles Resp Narrative: Breathing comfortably on 4 L nasal cannula. Decreased breath sounds bilaterally due to body habitus. No wheezing or crackles noted. Large air leak still noted. Cardio regular rate, regular rhythm, no murmurs and peripheral pulses 2+ throughout GI normal to inspection, nondistended, normoactive bowel sounds, soft to palpation, non-tender and non-distended Back/Spine normal ROM Extremity normal to inspection Skin no rashes or lesions noted Neuro moves all extremities Psych mental status grossly normal Assessment & Plan Assessment/Plan (1) Pneumothorax of left lung after biopsy: (2) Lung nodule: (3) Subcutaneous emphysema after procedure: PLAN: Plan Patient is a 68-year-old male who presented [facility] ED on 01/27/2024 with worsening shortness of breath after a lung nodule biopsy. 1. Pneumothorax of left lung after lung nodule biopsy with hypoxia, history of COPD with emphysema ? General Surgery following. Patient has history of COPD with extensive smoking history. Had CT-guided biopsy of left lung nodule on 01/26 that resulted in a 10% pneumothorax. S/p chest tube placement by general surgery on 01/26. Notably moved to the ICU on 01/27 due to the development of extensive subcutaneous emphysema. Subcu emphysema now much improved. Unfortunately patient continues to have large air leak. Per general surgery, if this remains tomorrow patient will need to be transferred to a tertiary center with a thoracic surgeon on staff. Continue daily chest x-rays. Management of chest tube per surgery. On 4 L nasal cannula and stable, wean as able. Continue home inhalers. Chronic medical conditions: ? Class III obesity: BMI 46 on admit. Complicates hospital course, care and prognosis. ? Hypertension: Stable. Continue home Lasix. ? Hyperlipidemia: Continue home statin. ? GERD: Continue home PPI. ? Depression: Continue home fluoxetine. DVT prophylaxis: SCDs CODE STATUS: Full code, unverified Expected disposition: TBD Total clinical time spent by myself addressing the patient's medical issues, reviewing all the data, and collaborating with patient's care team: 35 minutes. Charges/Coding Visit Charges Inpatient E&M: 59327 Subs Hosp L2
[2024-01-29] MEDS: Ipratropium/Albuterol Sulfate 3 ML AMPUL.NEB INHALATION ×2 (12:57→18:33)
--- NOTE | 2024-01-29 14:40 | CASEMGMT ---
Insurance review for hospitals In-network with [employer] Medicare Advantage from [facility] [id number]) insurance if transfer is recommended is as follows: [facility], [facility], [facility], [facility], [facility] and [facility]. Ann YANES RN CM
[2024-01-29] MEDS: Acetaminophen 325 MG Tablet 650 MG PO (17:19)
[2024-01-29] MEDS: Budesonide Respules 0.5 MG/2 ML AMPUL.NEB. INHALATION (18:33)
[2024-01-29] MEDS: Atorvastatin Calcium 20 MG Tablet PO (21:16)
--- NOTE | 2024-01-29 23:18 | DS.PCM_ITS ---
Providers Date of Admission: 01/27/24 Date of Discharge: 01/29/24 Primary Care Physician: CARL ALCALA Consultations 01/27/24 18:25 Consult: General Surgery Routine Consulting Provider: Garett Roland Reason for Consult: pneumothorax EMERGENT Consult: No MD Notified: Yes Date Notified: 01/27/24 Time Notified: 18:08 Method of Notification: Verbal Reason For Visit: LEFT APICAL PNEUMOTHORAX Diagnosis Discharge Diagnosis (1) Pneumothorax of left lung after biopsy: Status: Acute Code(s): J95.811 - Postprocedural pneumothorax (2) Lung nodule: Status: Acute Code(s): R91.1 - Solitary pulmonary nodule (3) Subcutaneous emphysema after procedure: Status: Acute Code(s): T81.82XA - Emphysema (subcutaneous) resulting from a procedure, initial encounter Plan DISCHARGE DIAGNOSES: #1. Iatrogenic left sided apical pneumothorax following left-sided left upper lobe nodule CT-guided biopsy with associated acute hypoxia and progressive subcutaneous emphysema extending the patient face/eyelids with significant persistent status post chest tube placement air leak #2. Hypertension #3. Hyperlipidemia #4. Asthma/COPD with allergic rhinitis #5. Former tobacco use #6. EDMAR normally using CPAP nightly #7. Morbidly Obesity #8. GERD Medications at Discharge Home Medications cholecalciferol (vitamin D3) 125 mcg (5,000 unit) capsule 125 mcg PO DAILY 02/19/22 fluoxetine 20 mg capsule 20 mg PO DAILY 02/19/22 furosemide 20 mg tablet 20 mg PO BID 02/19/22 omeprazole 20 mg capsule,delayed release 20 mg PO DAILY 02/19/22 potassium chloride 10 mEq tablet,extended release(part/cryst) 10 meq PO BID 02/19/22 rosuvastatin 10 mg tablet 10 mg PO DAILY 02/19/22 fluticasone fur. 100 mcg-umeclid 62.5 mcg-vilant 25 mcg inhalat.powder (Trelegy Ellipta) 1 inh inhalation DAILY 02/17/23 montelukast 10 mg tablet (Singulair) 10 mg PO DAILY 03/09/23 guaifenesin 1,200 mg tablet, extended release 12 hr (Mucinex) 1,200 mg PO Q12H PRN seasonal allergy congestion 01/27/24 Hospital Course Operations None Procedures EKG and - (Chest tube placement.) Summary of Care Provided Minutes Spent on Discharge: 35 Hospital Course: The patient is a 68 y/o M w/ PMHx: GERD, Obesity, EDMAR on CPAP, HLD, Anxiety and Depression, HTN, Asthma/COPD w/ allergic rhinitis, Former tobacco use who was admitted following 01/27/2024 CT-guided lung biopsy for noted left upper lobe nodule unfortunately potentially going through a bleb with resulting small apical pneumothorax noted on initial chest x-ray with follow-up still notable prompting admission with approximate that time 10% pneumothorax with associated left-sided chest discomfort and initially some swelling over his left neck and left facial area with repeat film demonstrating persistent left subcutaneous emphysema and minimal residual left apical pneumothorax with improved aeration of the left upper lobe. Given persistent progressive subcutaneous emphysema patient eventually had 01/27/2024 left thoracostomy tube placed and was admitted to the ICU. The subcutaneous emphysema extended into his face and eyelids as well with continued air leak initially improving however later in the evening 01/29/2024 worsened to the right side of the face prompting recommendation for general surgery to transfer to tertiary facility for thoracic surgery assessment and likely surgical intervention needs. Patient has required ongoing 4 L nasal cannula following PTX and chest tube placement. Patient was accepted at tertiary facility [facility] service with consultation planned with CT surgery who is also amenable. Weight / BMI Weight Weight: 321 lb 6.943 oz Body Mass Index (BMI) 46.0 ABG / Lab / Microbiology Data 01/29/24 04:45 01/29/24 04:45 Laboratory: Laboratory Results - last 24 hr 01/29/24 04:45: WBC 8.8, RBC 4.59 L, Hgb 13.5, Hct 41.4, MCV 90.2, MCH 29.4, MCHC 32.6, RDW Std Deviation 41.0, RDW Coeff of [place]z 12.3, Plt Count 288, MPV 10.5, Immature Gran % (Auto) 0.200, Neut % (Auto) 72.8 H, Lymph % (Auto) 14.1 L, [place] % (Auto) 9.5, Eos % (Auto) 3.1, Baso % (Auto) 0.3, Absolute Neuts (auto) 6.4, Absolute Lymphs (auto) 1.24, Nucleated RBC % 0, Sodium 137, Potassium 3.7, Chloride 106, Carbon Dioxide 26.0, Anion Gap 5, BUN 20 H, Creatinine 0.64 L, Estim Creat Clear Calc 131.14, Est GFR (MDRD) Af Amer 161, Est GFR (MDRD) Non-Af 133, BUN/Creatinine Ratio 31.2 H, Glucose 110 H, Calcium 8.8 Radiography Diagnostic Testing: Radiology Impression Chest X-Ray 01/29/24 07:35 IMPRESSION: 1. No pneumothorax or acute cardiopulmonary pathology. 2. Linear scarring in the left upper lobe. 3. Soft tissue air emphysema in the left axilla and left lateral chest wall. 4. No significant interval change. Electronically Signed: Johny Montague MD at 11:03 EST , D/C Instructions DC O2, CPAP, BIPAP Needs PSN CPAP & BiPAP: BiPAP & CPAP Settings per PSN Fraction of Inspired Oxygen ( 97 01/28/24 13:09 FIO2) Additional Home O2 Discharge instructions: No DC home with Oxygen: No Meaningful Use Info Meaningful Use Meaningful Use Diagnoses (Choose all that apply): None applicable Ischemic Stroke Statin Dosing Therapy Reference: STATIN DOSE THERAPY REFERENCE: * Patients > 75 years receive moderate or high dose statin therapy. * Patients 75 years or YOUNGER should receive HIGH intensity statin dose unless contraindicated. You will be required to document reason for non-treatment if statin daily dose does not meet guidelines. HIGH DOSE STATIN THERAPY DAILY Atorvastatin > than or = to 40 mg Rosuvastatin > than or = to 20 mg Amlodipine + Atorvastatin > than or = to 2.5/40 mg Ezetimibe + Simvastatin 10/80 mg Simvastatin 80mg Discharge Plan Admission Admit Date/Time: 01/27/24 18:25 Primary Reason for Your Visit: Iatrogenic L sided PTX, SC emphysema, Hypoxia Attending Provider: Ross Kidd Primary Care Provider: LUIS ANGEL RYAN Consulting Providers: Garett Roland; Holger Higgins; Josue Howell Discharge Orders/Prescriptions Prescriptions: No Action fluoxetine 20 mg capsule 20 mg PO DAILY rosuvastatin 10 mg tablet 10 mg PO DAILY furosemide 20 mg tablet 20 mg PO BID Patient Comments: TAKE 1 TABLET BY MOUTH ONCE DAILY potassium chloride 10 mEq tablet,ER particles/crystals 10 meq PO BID cholecalciferol (vitamin D3) 125 mcg (5,000 unit) capsule 125 mcg PO DAILY omeprazole 20 mg capsule,delayed release(DR/EC) 20 mg PO DAILY Trelegy Ellipta 100-62.5-25 mcg blister with device 1 inh inhalation DAILY montelukast [Singulair] 10 mg tablet 10 mg PO DAILY guaifenesin [Mucinex] 1,200 mg tablet extended release 12hr 1,200 mg PO Q12H PRN (Reason: seasonal allergy congestion) Referrals / Follow Up: LUIS ANGEL RYAN CRNP [Primary Care Provider] - Disposition Disposition (needs filled in before D/C Order can be placed): Acute Care Hospital Charges/Coding Visit Charges Inpatient E&M: 03414 Disch Hosp >30min
[2024-01-29] MEDS: LORazepam 2 MG/ML Syringe 1 MG IV (23:19)
[2024-01-29] MEDS: 0.9% Saline Lock 10 ML Syringe IV (23:20)
[2024-01-30] VITALS: BP 110/76; PULSE 92; RESP 30; TEMP 37.2; O2SAT 95
--- NOTE | 2024-01-30 00:06 | NURSING ---
attempted to call son, lázaro and update him but no answer
[2024-01-30 01:00] VITALS: BP 111/76; PULSE 92; RESP 22; O2SAT 94
[2024-01-30 02:00] VITALS: BP 126/65; PULSE 106; RESP 22; O2SAT 94
== END 2024-01-30 02:22 | disposition short-term general hospital (02) | DRG 200 ==
LOC: ED 14:01 → MS3 14:14 → ICU 18:22
PROVIDERS: Family Medicine; Admitting Provider Internal Medicine; Emergency Provider Emergency Medicine; PCP Nurse Practitioner Primary Care; Visit Provider Hospitalist
DX: J95.811 Postprocedural pneumothorax (principal); Z68.42 Body mass index [BMI] 45.0-49.9, adult; E66.813 Obesity, class 3; I10 Essential (primary) hypertension; T81.82XA Emphysema (subcutaneous) resulting from a procedure, initial encounter; G47.33 Obstructive sleep apnea (adult) (pediatric); K21.9 Gastro-esophageal reflux disease without esophagitis; E78.5 Hyperlipidemia, unspecified; F41.9 Anxiety disorder, unspecified; J30.2 Other seasonal allergic rhinitis; X58.XXXA Exposure to other specified factors, initial encounter; R91.1 Solitary pulmonary nodule; Z79.51 Long term (current) use of inhaled steroids; Z79.899 Other long term (current) drug therapy; Z85.46 Personal history of malignant neoplasm of prostate; Z87.891 Personal history of nicotine dependence
CPT/HCPCS: 36415; 71045; 71046; 71250; 77012; 80048; 80053; 84484; 85025; 85027; 85610; 85730; 88172; 88305; 88313; 93005; 94640; 99156; 99285; A4216; C2613

== ENCOUNTER → 2024-01-27 | Outpatient (CLI) | payer MEDICARE, SELFPAY ==
[2024-01-27] VITALS (13 sets, daily range): BP systolic 85–196; BP diastolic 49–130; PULSE 73–79; RESP 14–21; TEMP 36.4; O2SAT 92–100; BMI 45.9
[2024-01-27 07:32] LABS: Absolute Lymphocyte Count 1.94 X10^3/uL (0.83-4.51); Absolute Neutrophil Count 3.7 X10^3/uL (2.0-7.7); Basophil# 0.14 X10^3/uL; Basophil% 1.9 % (0-1); Eosinophil# 0.47 X10^3/uL; Eosinophils% 6.4 % (0-5); Hematocrit 46.6 % (40-54); Hemoglobin 15.2 g/dL (13.0-16.5); Lymphocyte # 1.94 X10^3/ul (0.83-4.51); Lymphocyte % 26.5 % (19-41); Mean Corp Hgb Conc 32.6 g/dL (32-36); Mean Corpuscular Hgb 29.5 pg (27.0-32.0); Mean Corpuscular Volume 90.3 fL (80-94); Mean Platelet Vol. 10.1 fl (6.2-12.0); Monocyte% 13.7 % (0-10); NRBC Flagged by Analyzer 0 % (0-5); Neutrophil # 3.73 X10^3/uL (2.7-7.7); Platelet Count 393 K/mm3 (150-450); RBC Distribution Width CV 12.4 % (11.6-14.6); RBC Distribution Width SD 40.8 fl (35.1-43.9); Red Blood Count 5.16 M/mm3 (4.6-6.2); White Blood Count 7.3 K/mm3 (4.4-11.0)
[2024-01-27 07:40] LABS: Prothrombin Time (Protime)PT. 13.4 SECONDS (11.7-14.9)
[2024-01-27 07:41] LABS: Partial Thromboplast Time 29.2 Seconds (24.1-36.2)
[2024-01-27] MEDS: 0.9% Saline Lock 10 ML Syringe IV ×2 (08:26→09:57)
[2024-01-27] MEDS: Midazolam 2 MG/2 ML Syringe IV ×2 (09:07→09:21)
[2024-01-27] MEDS: fentaNYL 100 MCG/2 ML Ampul IV ×2 (09:08→09:21)
--- NOTE | 2024-01-27 09:15 | ASPIGT_PTH ---
PATIENT: RUBIN MADRID LOC: CT U#:[id number] AGE/SX: 68/M ROOM: RE01/27/[address]: Dr. Luis Angel Stevens MD : 1955 BED: DIS: 01/27/2024 SPEC #: [id number] RECD: 01/27/24 09:30 STATUS: GENOVEVA RENicolasa #: [id number] DEAN: 01/27/24 09:[address]: Luis Angel Stevens V DEPT: SURGICAL PATHOLOGY RECD BY: Karina Field ENTERED: 01/27/24 12:11 SP TYPE: ASP RAD OTHR DR: MD LUIS ANGEL Laureano CRNP Tissues: Lung, NOS Procedures: FNA Specimen Adequacy Special Stain Group II Surgery Specimen Level IV Imprint (control) HEADER OPERATION: Left lung biopsy PRE-OP DIAGNOSIS: Nodule TISSUE SUBMITTED: 20 gauge x 5 cores MICROSCOPIC DIAGNOSIS Left lung, CT guided core biopsy: Minute fragments of benign lung parenchymal tissue and cartilage, negative for malignancy. See comment. 01/28/2024 COMMENT The specimen is evaluated at the time of biopsy by Dr. Bauer. Immediate Evaluation = Negative for malignant cells. Reported to CT personnel ([place]) at 9:39am on 01/27/2024. Correlation with clinical, radiologic findings and appropriate follow up are necessary. Re-biopsy suggested if clinically indicated. MICROSCOPIC DESCRIPTION Slides are reviewed. GROSS DESCRIPTION Received in fixative is one container labeled with the patient's name and designated Lung biopsy. The specimen consists of multiple minute irregular fragments of cardenas soft tissue that in aggregate measure 0.3 x 0.1 x <0.1 cm. The specimen is totally submitted in one cassette. Two touch imprints are prepared at the time of core biopsy. 01/27/2024 TC:5 CPT:71998, 87690
[2024-01-27] MEDS: Lidocaine 2% (20 ml mdv) 20 ML Vial INFILT (09:22)
--- NOTE | 2024-01-27 09:41 | RAD_ITS ---
STUDY: X-RAY CHEST REASON FOR EXAM: Male, 68 years old. s/p lung biopsy TECHNIQUE: AP inspiration and expiration views. COMPARISON: None. FINDINGS: The patient is status post left lung biopsy. Tiny left apical pneumothorax. Increased density at the biopsy site suggestive of a small amount of bleeding. RAD/Chest Insp/Exp 2 View IMPRESSION: Small apical pneumothorax. Repeat radiographs recommended in 2 hours. Electronically Signed: Shayne Goldsmith MD at 10:50 EST ,
--- NOTE | 2024-01-27 09:42 | PCM.OPRPT ---
Problems Associated Problem List Diagnoses (1) Lung nodule: Procedures Radiology Radiology CT Procedures: 56309 Biopsy Lung Multi Select Codes Radiology Radiology CT Procedures: 74582 Biopsy Lung and 67580-69 CT guidance parenchymal tissue Operative Report (Standard) Operative Information Date of Procedure: 01/27/24 Pre-Operative Diagnosis: Left upper lobe lung nodule Post-Operative Diagnosis: Left upper lobe lung nodule Surgery/Procedure Performed: CT-guided biopsy health and physical education professor: No Type of Anesthesia: Local Procedure Start Time: 09:07 Procedure Stop Time: :33 Select all DRAINS/GRAFTS/IMPLANTS that apply: None Estimated Blood Loss: 0 Specimen collected: Yes Description of specimen(s) removed: 5 core biopsies Description of surgery: PROCEDURE: CT GUIDED CORE NEEDLE LUNG BIOPSY ORDERING PROVIDER: Dr. Tanner Stevens INDICATION: Male, 68 years old. Left upper lobe lung nodule PROVIDER: Minal Lackey CNP CONSENT: Written informed consent was obtained having explained the risks, benefits and alternatives in detail with the patient, who accepted the risks and agreed to proceed. Laboratory review and clinical assessment was performed. PRE-PROCEDURE SEDATION ASSESSMENT: Current history and physical dictated by referring physician and reviewed. No clinical changes since date of exam. Patient has a Mallampati Score of Class 3 and ASA Class of 2. PROCEDURAL SEDATION PROTOCOL: The Drugs used were: 3 mg Versed, IV, and 75 mcg Fentanyl, IV. The sedation time was: starting at 9:07 AM and terminated at 9:33 AM. The procedural sedation protocol was independently monitored by the department nurse. RADIATION DOSAGE (Supplied By Facility): CTDIvol = 19.77 mGy, DLP = 635.83 mGycm Individualized dose optimization techniques were used for this CT. TECHNIQUE: The patient was placed in a supine position. A noncontrast CT was performed to localize the lesion in the left upper lobe. The skin surface was prepped with chlorhexidine and draped in a sterile fashion. 2 minimal % lidocaine was used for local anesthesia. Using CT guidance, a 20-gauge coaxial biopsy device was advanced to the periphery of the lesion. A total of 5 core specimens were obtained. Specimens were microscopically reviewed by pathology in the CT suite and placed in formalin solution. BioSentry tract sealant system was deployed at the biopsy site, and the biopsy needle was removed. A sterile occlusive dressing was applied to the biopsy site. The patient tolerated the procedure well. An immediate chest xray was ordered, per protocol. A negative biopsy does not exclude malignancy. Further imaging or clinical followup based on patient condition and degree of clinical suspicion for malignancy. Suggest rebiopsy, if biopsy results do not match with clinical scenario. IMPRESSION: CT directed core needle biopsy of left upper lobe nodule using CT image guidance with image documentation as described. Pathology results are pending. Procedural Sedation protocol utilized with independent monitoring by the department nurse. Surgical Findings: Small apical pneumothorax noticed on initial chest x-ray following biopsy. Plan to repeat in 2 hours. Complications Complications: Yes Complication Details: 5 to 10% left apical pneumothorax
[2024-01-27] MEDS: Ketorolac 30 MG/ML Syringe (09:55)
--- NOTE | 2024-01-27 10:02 | RAD_ITS ---
STUDY: X-RAY CHEST REASON FOR EXAM: Male, 68 years old. S/p lung biopsy TECHNIQUE: Single AP portable view of the chest. COMPARISON: Comparison made with prior study done earlier in the day. FINDINGS: The left-sided chest tube is not seen at this time. EKG electrodes are seen. Mild residual left subcutaneous emphysema. Minimal residual left apical pneumothorax. Stable increased markings in the left upper lobe as well as at the lung bases suggestive scarring and atelectasis. Normal size heart. Normal mediastinum and richardson. Normal visualized pulmonary arteries. There is atherosclerotic calcification of the aortic arch with tortuosity. Normal visualized thoracic spine. Normal visualized ribs, clavicles, and shoulders. There is no demonstrated abnormality of the visualized soft tissue structures of the upper abdomen. RAD/Chest Insp/Exp 2 View IMPRESSION: Tiny left apical pneumothorax. Residual left-sided subcutaneous emphysema. Electronically Signed: Shayne Goldsmith MD at 10:27 EST ,
--- NOTE | 2024-01-27 10:10 | CT_ITS ---
STUDY: CT CHEST WITHOUT CONTRAST REASON FOR EXAM: Male, 68 years old. S/p lung biopsy. Severe chest pain. RADIATION DOSAGE (If Supplied By Facility): CTDIvol = ( 19.85 ) mGy, DLP = ( 743.90 ) mGycm TECHNIQUE: Transaxial imaging was performed without the administration of intravenous contrast material. Multiplanar coronal and sagittal images were reformatted. Individualized dose optimization techniques were used for this CT. COMPARISON: Comparison is made with prior study dated November 02, 2023. FINDINGS: CHEST There is evidence of left subcutaneous emphysema overlying the left anterior and lateral chest wall. The patient is status post biopsy of the right upper lobe nodule with the small amount of the pulmonary bleed at the biopsy site. Hyperinflation. Diffuse emphysematous changes worse in the upper lobes with multiple bleb formation. There is a small loculated pneumothorax in the anterior left lung base. CT/Chest without Contrast IMPRESSION: Status post left lung biopsy with evidence of a small loculated pneumothorax in the anterior aspect of the mid chest with overlying subcutaneous emphysema of the left chest wall. Electronically Signed: Shayne Goldsmith MD at 12:21 EST ,
== END | disposition home or self-care (01) ==
LOC: CT 07:13
PROVIDERS: Radiology Diagnostic Radiology; PCP Nurse Practitioner Primary Care; Referring Provider Internal Medicine Pulmonary Disease; Visit Provider Internal Medicine Pulmonary Disease
DX: R91.1 Solitary pulmonary nodule (principal); J44.9 Chronic obstructive pulmonary disease, unspecified; E78.5 Hyperlipidemia, unspecified; G47.33 Obstructive sleep apnea (adult) (pediatric); Z79.899 Other long term (current) drug therapy; Z87.891 Personal history of nicotine dependence
CPT/HCPCS: 32408; 36415; 71046; 71250; 77012; 85025; 85610; 85730; 88172; 88305; 88313; 99156; A4216; C2613